=== PATIENT | male | born 1940 | race Caucasian/White ===

== ENCOUNTER 2021-09-06 09:59 | Day surgery (SDC) | payer MEDICARE, BC, SELFPAY ==
--- NOTE | 2021-09-03 10:32 | ONC.NURNOTE ---
Patient called and notified office that he is aware that he is overdue for labs. He has an appointment at [facility] tomorrow.
[2021-09-06] VITALS (9 sets, daily range): BP systolic 161–183; BP diastolic 65–86; PULSE 70–85; RESP 14–18; TEMP 36.3–36.4; O2SAT 96–98; BMI 38.4
[2021-09-06] MEDS: BUPIVACAINE 0.5% 30 ML INJECTION (12:28)
[2021-09-06] MEDS: lidocaine HCL 2 % MULTIDOSE 20 ML VIAL INJECTION (12:28)
--- NOTE | 2021-09-06 13:32 | PM.ORPRC ---
Procedure Note Date of procedure: 09/06/21 Procedure: Preop diagnosis: Left hand middle finger stenosing tenosynovitis Postop diagnosis: Left hand middle finger stenosing tenosynovitis Procedure: Left hand middle finger A1 derick release Anesthesia: Local Surgeon: Yvon Batres MD commercial lending assistant: TARIQ Booth EBL: 0 mL Complications: None Specimens: None Drains: None Preoperative antibiotics: None Indications: The patient has a history of left upper extremity middle finger painful catching and locking. Despite appropriate non operative management including flexor tendon sheath corticosteroid injections they continue to have symptoms. Operative intervention was recommended. The risks, benefits alternatives and expected outcomes were discussed in detail. These included but were not limited to: Infection, bleeding, injury to blood vessel or nerve, venous thromboembolism. All questions were answered to their satisfaction. The patient was placed supine on the operating room table. Local anesthesia was established with 0.5% Marcaine without epinephrine and 2% lidocaine without epinephrine. The hand was prepped and draped in usual sterile fashion. The limb was elevated the forearm pneumatic tourniquet was inflated to 250 mm of mercury. A transverse incision was made centered over the base of the middle finger distal palmar crease. Subcutaneous dissection was taken through the palmar fascia to the flexor tendons with the tenotomy scissors. The A1 derick was released with the 15 blade and a tenotomy scissors. Active flexion and extension of the finger shows no catching or locking, no bowstringing of the flexor tendons. The wound was closed with interrupted nylon sutures. A dry dressing was applied the tourniquet was released. Sponge and needle counts were correct x 2. The patient tolerated the procedure well, there were no apparent complications. They were sent to same day surgery in satisfactory condition. Plan: Use of the hand as tolerates. Discontinue the intraoperative dressing on postoperative day 3 and may get the wound wet as tolerates. Follow up in the office in 2 weeks for a wound check and suture removal.
== END 2021-09-06 13:00 | disposition home or self-care (01) ==
LOC: OR 10:01
PROVIDERS: PCP Family Medicine; Visit Provider Orthopaedic Surgery
PROC: (CPT 26055; principal; 2021-09-06 11:00)
DX: M65.332 Trigger finger, left middle finger (principal); M65.842 Other synovitis and tenosynovitis, left hand
CPT/HCPCS: 26055; J3490

== ENCOUNTER 2021-09-12 16:44 | Emergency (ER) | payer MEDICARE, BC, SELFPAY ==
[2021-09-12 17:05] VITALS: BP 93/62; PULSE 77; RESP 22; TEMP 37; O2SAT 96; BMI 37.3
--- NOTE | 2021-09-12 17:09 | ED.GENADULT ---
HPI - General Adult General Time Seen by Provider: 17:09 Date Seen: 09/12/21 Chief complaint: Abdominal Pain Stated complaint: Lower abdominal pain Time Seen by Provider: 09/12/21 17:03 Source: patient and family History of Present Illness HPI narrative: Jeremiah is a 80 year old male past medical history of stage 1 CLL/SLL with intra-abdominal lymphadenopathies currently doing well on oral Ibrutinib who presents to the ED with abdominal pain. Patient states that he developed lower abdominal pain this afternoon, he recently saw urology the [facility] a week and half ago, they did a cystoscopy where he had no lesions, this was because he was having microscopic hematuria, a discussion about possible TURP in the October. He did have a laser TURP 10 years ago for BPH. Patient says that when he urinates, its hard to go, then he has decent stream until it stops, he has to stand there for awhile because ends up urinating once again, this is his usual routine and he feels that he fully empties his bladder. No clots or blood in the urine, patient says that he was having a lot of increased frequency of urination this morning which is unusual, he was thinking he had an infection. He denies any nausea vomiting, back pain, this afternoon he tried to urinate and it was just dribbling. 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 Pain is lower almost suprapubic. He states he had a normal bowel movement this morning, he denies any blood in stool, no diarrhea or constipation. Denies any upper respiratory complaints. Patient has no other concerns at this time. Related Data Home Medications Medication Instructions Recorded Confirmed atorvastatin 40 mg tablet 40 mg PO .Bedtime 08/27/21 09/12/21 diphenhydramine 25 1 tab PO .Bedtime 08/27/21 09/06/21 mg-acetaminophen 500 mg tablet fexofenadine 180 mg tablet 180 mg PO DAILY 08/27/21 09/06/21 furosemide 20 mg tablet 20 mg PO DAILY 08/27/21 09/06/21 ibrutinib 140 mg capsule 280 mg PO DAILY 08/27/21 09/12/21 omeprazole 20 mg capsule,delayed 20 mg PO QDAY PRN 08/27/21 09/12/21 release potassium chloride 10 mEq 10 meq PO DAILY 08/27/21 09/06/21 capsule,extended release Previous Rx's Medication Instructions Recorded ciprofloxacin HCl 500 mg tablet 500 mg PO BID 7 days #14 tabs 09/12/21 Allergies Allergy/AdvReac Type Severity Reaction Status Date / Time penicillin V Allergy Severe Tongue Verified 09/06/21 10:12 swelling aspirin Allergy Intermediate Excessive Verified 09/06/21 10:12 bleeding oxycodone AdvReac Mild Nausea/vomi Verified 09/06/21 10:12 ting Review of Systems Status of ROS: Reports: 10 or more systems reviewed and unremarkable except as noted in History and below [facility] Medical History (Updated 09/12/21 @ 18:57 by Neil Vivas MD) Arthritis Barretts esophagus Chronic lymphocytic leukemia (CLL), B-cell GERD (gastroesophageal reflux disease) High cholesterol Iron deficiency anemia YAJAIRA (obstructive sleep apnea) Surgical History (Updated 08/27/21 @ 09:03 by Latonia Crow RN) H/O abdominal surgery H/O hernia repair H/O total shoulder replacement History of ear surgery History of total left knee replacement S/P trigger finger release Social History Smoking Status: Former smoker How often do you have a drink containing alcohol: never AUDIT-C Alcohol total score: 0 Non-prescribed substance use: denies use Exam Const: Vital Signs, click to edit/add: Vital Signs - 24 hr 09/12/21 17:05 Temperature 98.6 F Pulse Rate [Left P ulse Oximeter] 77 Respiratory Rate 22 Blood Pressure [Le ft Upper Arm] 93/62 Pulse Oximetry 96 Oxygen Delivery Me thod Room Air Common normals: no apparent distress and oriented x3 General appearance: cooperative HENMT: Common normals: normocephalic Head and scalp: normocephalic Eye: Common normals: PERRL and EOMs intact bilaterally Pupil: PERRL Neck & C-Spine: Common normals: full ROM and no lymphadenopathy Resp: Common normals: normal respiratory effort and clear to auscultation bilaterally Auscultation: clear to auscultation bilaterally GI: Common normals: Normal to inspection, nondistended, normoactive bowel sounds present and soft to palpation Palpation: soft Other: Tender to palpation in the suprapubic region : Common normals: no CVA tenderness Bladder/kidney exam: no CVA tenderness Back & Pelvis: Common normals: no CVA tenderness and thoracic and lumbar spine normal to inspection Extremity: Other: Chronic +2 lower extremity pitting edema Neuro: Common normals: oriented x3 Course Course Hospital Course: 5:15 PM: AIDET performed. Vitals normal. work up will include bladder scan, with urinalysis and urine culture. Reevaluation(s) Reevaluation #1: Patient updated on his urinalysis results, 3+ blood, 25-50 urine wbc's few bacteria. Patient drained over 650 mL of urine, he was able to urinate after. Did discuss about leaving Brody catheter in, decision was to have him try without, he will take Flomax which he has at home, will start him on ciprofloxacin 500 mg b.i.d. over the next 7 days, he needs reach out to urology to schedule follow-up appointment. Time: 18:57 Vital Signs Vital signs: Initial Vital Signs Temperature 98.6 F 09/12/21 17:05 Temperature Source Temporal Artery Scan 09/12/21 17:05 Pulse Rate 77 09/12/21 17:05 Pulse Rhythm 09/12/21 17:05 Respiratory Rate 22 09/12/21 17:05 Blood Pressure 93/62 09/12/21 17:05 Blood Pressure Mean 72 09/12/21 17:05 Blood Pressure Position Sitting 09/12/21 17:05 Pulse Oximetry 96 09/12/21 17:05 Oxygen Delivery Method 09/12/21 17:05 Vital Signs Temperature 98.6 F 09/12/21 17:05 Pulse Rate 77 09/12/21 17:05 Respiratory Rate 22 09/12/21 17:05 Blood Pressure 93/62 09/12/21 17:05 Pulse Oximetry 96 09/12/21 17:05 Oxygen Delivery Method 09/12/21 17:05 Temperature 98.6 F 09/12/21 17:05 Pulse Rate 77 09/12/21 17:05 Respiratory Rate 22 09/12/21 17:05 Blood Pressure 93/62 09/12/21 17:05 Pulse Oximetry 96 09/12/21 17:05 Oxygen Delivery Method 09/12/21 17:05 Medical Decision Making Lab Data Labs: Lab Results 09/12/21 Range/Units 17:55 Urine Color Yellow (Yellow) Urine Appearance Clear (Clear) Urine pH 6.5 (5.0-8.5) Ur Specific [place] 1.015 (1.000-1.030) Urine Protein Negative (Negative) Urine Glucose (UA) Negative (Negative) Urine Ketones Negative (Negative) Urine Blood 3+ A (Negative) Urine Nitrite Negative (Negative) Urine Bilirubin Negative (Negative) Urine Urobilinogen 0.2 (0.2-1.0) Ur Leukocyte Esterase Negative (Negative) Urine RBC 0-2 (0-2) Urine WBC 25-50 A (0-5) Ur Squamous Epith Cells None (None-Few) Urine Bacteria Few A (None) Discharge Plan Discharge Clinical Impression: Acute urinary retention Patient Disposition: Home, Self-Care Instructions: Urinary Retention in Men (ED) Additional Instructions: To continue with your Flomax 0.4 mg daily, to start ciprofloxacin 500 mg twice daily for 7 days. To reach out to your urologist at [facility], to discuss with him bone moving up with his procedure. Any worsening urinary retention to return to the emergency department or follow-up with your primary care provider for Brody placement. Activity Level: Activity as Tolerated Prescriptions: New ciprofloxacin HCl 500 mg tablet 500 mg PO BID 7 Days Qty: 14 0RF No Action diphenhydramine-acetaminophen 25-500 mg tablet 1 tab PO .Bedtime furosemide 20 mg tablet 20 mg PO DAILY fexofenadine 180 mg tablet 180 mg PO DAILY potassium chloride 10 mEq capsule, extended release 10 meq PO DAILY atorvastatin 40 mg tablet 40 mg PO .Bedtime omeprazole 20 mg capsule,delayed release(DR/EC) 20 mg PO QDAY PRN ibrutinib 140 mg capsule 280 mg PO DAILY Rx Instructions: take 2 capsules daily. Follow Up/Referrals: Jeremiah Duran MD [Primary Care Provider] - Stand Alone Forms: [employer] Info Instructions
[2021-09-12 18:00] VITALS: BP 127/88; PULSE 76; RESP 16; O2SAT 95
[2021-09-12 18:04] LABS: Appearance Urine Clear (Clear); Bilirubin Urine Negative (Negative); Blood Urine 3+ (Negative); Color Urine Yellow (Yellow); Glucose Urine Negative (Negative); Ketones Urine Negative (Negative); Leukocyte Esterase Urine Negative (Negative); Nitrite Urine Negative (Negative); Protein Urine Negative (Negative); Specific Gravity Urine 1.015 (1.000-1.030); Urobilinogen Urine 0.2 (0.2-1.0); pH Urine 6.5 (5.0-8.5)
[2021-09-12 18:33] LABS: Bacteria Urine Few; RBC Urine 0-2 (0-2); WBC Urine 25-50 (0-5)
--- NOTE | 2021-09-12 18:38 | ED.NURSE ---
straight cath attempt with 18f, pt states at urology appointment they had to wedge stretch the tip to get the catheter in, reattempt with 12f catheter with success, 1000cc pale yellow urine output, pt states relief of lower abdomen pressure/pain.
== END 2021-09-12 19:21 | disposition home or self-care (01) ==
PROVIDERS: Emergency Provider Student in an Organized Health Care Education/Training Program; PCP Family Medicine
DX: R33.9 Retention of urine, unspecified (principal)
CPT/HCPCS: 51702; 81003; 81015; 87086; 99283; 99284

== ENCOUNTER 2021-09-13 09:44 | Emergency (ER) | payer MEDICARE, BC, SELFPAY ==
[2021-09-13 10:37] VITALS: BP 164/84; PULSE 92; RESP 18; TEMP 36.8; O2SAT 96; BMI 37.3
--- NOTE | 2021-09-13 10:39 | ED.NURSE ---
18F attempted without success. tried again with 12F with success. attached to drainage bag. approx 300cc of urine
--- NOTE | 2021-09-13 10:52 | ED_ITS ---
HPI - General Adult General Time Seen by Provider: 10:52 Date Seen: 09/13/21 Stated complaint: Bladder pain Time Seen by Provider: 09/13/21 10:49 Source: patient, RN notes reviewed and old records reviewed (Review Dr. Roberson note from yesterday) Mode of arrival: ambulatory Limitations: no limitations History of Present Illness HPI narrative: Patient is a 80-year-old male coming in with urinary retention. He was seen last night, had in and out catheter done with 650 mL. He did go home. He was started on Cipro for hematuria and urinalysis. I do not see that a urine culture was ordered. He had Flomax at home. He does see Dr. Reynoso in Urology and had a green light laser done about 10 years ago. The plan is to have revision of that and they had that planned in October. Patient is already called his urologist and is awaiting a call back. Overnight he could not urinate at all. He was up every 15 minutes into the bathroom per his . On arrival here nursing staff did place a Brody catheter and he had resolution of his symptoms. He initially had over 300 mL but he now tells me he had to drain the bag as it was completely full. He has a leg bag on already. He understands that this will be left in place so that he may urinate. I will attempt to order a urine culture on the urine today but he has had a dose or 2 of Cipro. Since the urine drainage has been alleviated, he has no discomfort. He has had no fevers or chills overnight. MD complaint: Urinary retention Onset (ago): hour(s) Related Data Home Medications Medication Instructions Recorded Confirmed atorvastatin 40 mg tablet 40 mg PO .Bedtime 08/27/21 09/12/21 diphenhydramine 25 1 tab PO .Bedtime 08/27/21 09/06/21 mg-acetaminophen 500 mg tablet fexofenadine 180 mg tablet 180 mg PO DAILY 08/27/21 09/06/21 furosemide 20 mg tablet 20 mg PO DAILY 08/27/21 09/06/21 ibrutinib 140 mg capsule 280 mg PO DAILY 08/27/21 09/12/21 omeprazole 20 mg capsule,delayed 20 mg PO QDAY PRN 08/27/21 09/12/21 release potassium chloride 10 mEq 10 meq PO DAILY 08/27/21 09/06/21 capsule,extended release Previous Rx's Medication Instructions Recorded ciprofloxacin HCl 500 mg tablet 500 mg PO BID 7 days #14 tabs 09/12/21 Allergies Allergy/AdvReac Type Severity Reaction Status Date / Time penicillin V Allergy Severe Tongue Verified 09/06/21 10:12 swelling aspirin Allergy Intermediate Excessive Verified 09/06/21 10:12 bleeding oxycodone AdvReac Mild Nausea/vomi Verified 09/06/21 10:12 ting Review of Systems Status of ROS: Reports: 6 or more systems reviewed and unremarkable except as noted in History and below [facility] Medical History (Updated 09/13/21 @ 11:02 by Cathi Nicholas MD) Arthritis Barretts esophagus Chronic lymphocytic leukemia (CLL), B-cell GERD (gastroesophageal reflux disease) High cholesterol Iron deficiency anemia YAJAIRA (obstructive sleep apnea) Surgical History (Updated 08/27/21 @ 09:03 by Latonia Crow RN) H/O abdominal surgery H/O hernia repair H/O total shoulder replacement History of ear surgery History of total left knee replacement S/P trigger finger release Social History Smoking Status: Former smoker How often do you have a drink containing alcohol: never AUDIT-C Alcohol total score: 0 Non-prescribed substance use: denies use Exam Const: Vital Signs, click to edit/add: Vital Signs - 24 hr 09/13/21 10:37 Temperature 98.3 F Pulse Rate [Right Pulse Oximeter] 92 Respiratory Rate 18 Blood Pressure [Ri ght Upper Arm] 164/84 H Pulse Oximetry 96 Oxygen Delivery Me thod Room Air Documenting provider has reviewed patient's vital signs: yes Common dolores ls: no apparent distress, oriented x3, no limitations, healthy appearing, alert and well nourished Nutritional appearance: overweight HENMT: Common normals: normocephalic, head/scalp atraumatic and hearing grossly normal bilaterally Head and scalp: normocephalic and atraumatic Eye: Common normals: PERRL, EOMs intact bilaterally, conjunctivae normal and no scleral icterus Conjunctiva: conjunctiva(e) normal Pupil: PERRL GI: Common normals: Normal to inspection, nondistended, normoactive bowel sounds present (But obese), soft to palpation, non-tender, no hepatosplenomegaly and no masses Palpation: soft and no hepatosplenomegaly Other: Noted abdominal exam done after Brody catheter already placed. Neuro: Common normals: oriented x3 Sensorium/orientation: alert Course Vital Signs Vital signs: Initial Vital Signs Temperature 98.3 F 09/13/21 10:37 Temperature Source Temporal Artery Scan 09/13/21 10:37 Pulse Rate 92 09/13/21 10:37 Respiratory Rate 18 09/13/21 10:37 Blood Pressure 164/84 H 09/13/21 10:37 Blood Pressure Mean 110 09/13/21 10:37 Blood Pressure Position Sitting 09/13/21 10:37 Pulse Oximetry 96 09/13/21 10:37 Oxygen Delivery Method 09/13/21 10:37 Vital Signs Temperature 98.3 F 09/13/21 10:37 Pulse Rate 92 09/13/21 10:37 Respiratory Rate 18 09/13/21 10:37 Blood Pressure 164/84 H 09/13/21 10:37 Pulse Oximetry 96 09/13/21 10:37 Oxygen Delivery Method 09/13/21 10:37 Temperature 98.3 F 09/13/21 10:37 Pulse Rate 92 09/13/21 10:37 Respiratory Rate 18 09/13/21 10:37 Blood Pressure 164/84 H 09/13/21 10:37 Pulse Oximetry 96 09/13/21 10:37 Oxygen Delivery Method 09/13/21 10:37 Critical Care Time Critical Care Time Critical Care Time: No Discharge Plan Discharge Clinical Impression: Acute urinary retention Condition: Stable Instructions: Urinary Retention in Men (ED), Brody Catheter Placement and Care (ED) Additional Instructions: Leave Brody catheter in place, review handouts on care. Need to work with your urologist for further evaluation and management of this. Should you develop severe abdominal pain, fever, nausea vomiting with abdominal pain or fever or if the Brody catheter is obstructed and not draining, please seek re-evaluation in the interim. Activity Level: Activity as Tolerated Prescriptions: No Action diphenhydramine-acetaminophen 25-500 mg tablet 1 tab PO .Bedtime furosemide 20 mg tablet 20 mg PO DAILY fexofenadine 180 mg tablet 180 mg PO DAILY potassium chloride 10 mEq capsule, extended release 10 meq PO DAILY atorvastatin 40 mg tablet 40 mg PO .Bedtime omeprazole 20 mg capsule,delayed release(DR/EC) 20 mg PO QDAY PRN ibrutinib 140 mg capsule 280 mg PO DAILY Rx Instructions: take 2 capsules daily. ciprofloxacin HCl 500 mg tablet 500 mg PO BID 7 Days Qty: 14 0RF Follow Up/Referrals: Jeremiah Duran MD [Primary Care Provider] - Stand Alone Forms: [employer] Info Instructions
== END 2021-09-13 11:26 | disposition home or self-care (01) ==
LOC: ED 11:09
PROVIDERS: Emergency Provider Family Medicine; PCP Family Medicine
DX: R33.9 Retention of urine, unspecified (principal)
CPT/HCPCS: 51702; 87086; 99283

== ENCOUNTER 2021-09-24 09:56 | Emergency (ER) | payer MEDICARE, BC, SELFPAY ==
[2021-09-24 10:37] VITALS: BP 149/82; PULSE 74; RESP 18; TEMP 36.5; O2SAT 96; BMI 37.3
--- NOTE | 2021-09-24 11:46 | ED.GENADULT ---
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 He has had self catheterizations, but more recently has had a little bit a blood-tinged urine, his urologist felt that he should have a catheter in place until his procedure in the next couple of weeks. Any presents for that. He is not having fever, chills, chest pain, neurologic complaints, no rigors. He simply wishes a catheter. He like to have a leg bag as well as a large night bag for the catheter to drain Related Data Home Medications Medication Instructions Recorded Confirmed atorvastatin 40 mg tablet 40 mg PO .Bedtime 08/27/21 09/19/21 diphenhydramine 25 1 tab PO .Bedtime 08/27/21 09/19/21 mg-acetaminophen 500 mg tablet fexofenadine 180 mg tablet 180 mg PO DAILY 08/27/21 09/19/21 furosemide 20 mg tablet 20 mg PO DAILY 08/27/21 09/19/21 ibrutinib 140 mg capsule 280 mg PO DAILY chronic lymphesmic 08/27/21 09/19/21 leukemia omeprazole 20 mg capsule,delayed 20 mg PO QDAY PRN 08/27/21 09/19/21 release potassium chloride 10 mEq 10 meq PO DAILY 08/27/21 09/19/21 capsule,extended release tamsulosin 0.4 mg capsule ea PO 09/19/21 09/19/21 Previous Rx's Medication Instructions Recorded ciprofloxacin HCl 500 mg tablet 500 mg PO BID 7 days #14 tabs 09/12/21 Allergies Allergy/AdvReac Type Severity Reaction Status Date / Time penicillin V Allergy Severe Tongue Verified 09/19/21 16:14 swelling aspirin Allergy Intermediate Excessive Verified 09/19/21 16:14 bleeding oxycodone AdvReac Mild Nausea/vomi Verified 09/19/21 16:14 ting Review of Systems Status of ROS: Reports: 6 or more systems reviewed and unremarkable except as noted in History and below [facility] Medical History Arthritis Barretts esophagus Chronic lymphocytic leukemia (CLL), B-cell GERD (gastroesophageal reflux disease) High cholesterol Iron deficiency anemia YAJAIRA (obstructive sleep apnea) Surgical History H/O abdominal surgery H/O hernia repair H/O total shoulder replacement History of ear surgery History of total left knee replacement S/P trigger finger release (09/06/21) Social History Smoking Status: Former smoker (quit 02/03/1969) What tobacco products do you use: cigarettes Smoking quit date/years: >15 years ago Do you use any of these nicotine containing products: None Second hand tobacco smoke exposure: No How often do you have a drink containing alcohol: never AUDIT-C Alcohol total score: 0 Non-prescribed substance use: denies use Exam Narrative: Exam Narrative: Vital signs unremarkable The patient is alert orient x3 Denies abdominal pain or back pain Const: Vital Signs, click to edit/add: Vital Signs - 24 hr 09/24/21 10:37 Temperature 97.7 F Pulse Rate [Right Pulse Oximeter] 74 Respiratory Rate 18 Blood Pressure [Ri ght Upper Arm] 149/82 H Pulse Oximetry 96 Oxygen Delivery Me thod Room Air Course Vital Signs Vital signs: Initial Vital Signs Temperature 97.7 F 09/24/21 10:37 Temperature Source Temporal Artery Scan 09/24/21 10:37 Pulse Rate 74 09/24/21 10:37 Pulse Rhythm 09/24/21 10:37 Respiratory Rate 18 09/24/21 10:37 Blood Pressure 149/82 H 09/24/21 10:37 Blood Pressure Mean 104 09/24/21 10:37 Blood Pressure Position Sitting 09/24/21 10:37 Pulse Oximetry 96 09/24/21 10:37 Oxygen Delivery Method 09/24/21 10:37 Vital Signs Temperature 97.7 F 09/24/21 10:37 Pulse Rate 74 09/24/21 10:37 Respiratory Rate 18 09/24/21 10:37 Blood Pressure 149/82 H 09/24/21 10:37 Pulse Oximetry 96 09/24/21 10:37 Oxygen Delivery Method 09/24/21 10:37 Temperature 97.7 F 09/24/21 10:37 Pulse Rate 74 09/24/21 10:37 Respiratory Rate 18 09/24/21 10:37 Blood Pressure 149/82 H 09/24/21 10:37 Pulse Oximetry 96 09/24/21 10:37 Oxygen Delivery Method 09/24/21 10:37 Medical Decision Making MDM Narrative Medical decision making narrative: Patient has had prostatism, he has had a history of laser surgery for his prostate in the past and needs repeat. Per Urology needs a catheter will place this leave it to drainage Rashad leg bag and to a large overnight bag. He can return to the ED as needed prior to his surgery, otherwise problems or concerns update his urologist. Discharge Plan Discharge Clinical Impression: Acute urinary retention Patient Disposition: Home, Self-Care Condition: Improved Additional Instructions: Brody catheter placed, update Urology as needed, return as needed. Activity Level: Light activity Discharge Diet: Regular Prescriptions: No Action tamsulosin 0.4 mg capsule PO Label Comments: TAKE 1 CAPSULE BY MOUTH EVERY DAY DIRECTED diphenhydramine-acetaminophen 25-500 mg tablet 1 tab PO .Bedtime furosemide 20 mg tablet 20 mg PO DAILY fexofenadine 180 mg tablet 180 mg PO DAILY potassium chloride 10 mEq capsule, extended release 10 meq PO DAILY atorvastatin 40 mg tablet 40 mg PO .Bedtime omeprazole 20 mg capsule,delayed release(DR/EC) 20 mg PO QDAY PRN ibrutinib 140 mg capsule 280 mg PO DAILY Rx Instructions: take 2 capsules daily. ciprofloxacin HCl 500 mg tablet 500 mg PO BID 7 Days Qty: 14 0RF Follow Up/Referrals: Jeremiah Duran MD [Primary Care Provider] - Stand Alone Forms: [employer] Info Instructions
== END 2021-09-24 12:05 | disposition home or self-care (01) ==
PROVIDERS: Emergency Provider Family Medicine; PCP Family Medicine
DX: R33.9 Retention of urine, unspecified (principal)
CPT/HCPCS: 51702; 99283

== ENCOUNTER 2021-09-26 10:32 | Emergency (ER) | payer MEDICARE, BC, SELFPAY ==
[2021-09-26 10:45] VITALS: BP 148/87; PULSE 73; RESP 18; TEMP 36.6; O2SAT 99
--- NOTE | 2021-09-26 10:45 | ED_ITS ---
HPI - General Adult General Time Seen by Provider: 10:44 Date Seen: 09/26/21 Chief complaint: Urogenital Problems, Male Stated complaint: Plugged catheter Time Seen by Provider: 09/26/21 10:34 Source: patient Mode of arrival: ambulatory Limitations: no limitations History of Present Illness HPI narrative: Mr. Hawley is a pleasant 80-year-old male scheduled for BPH surgery within the next few weeks, noted this catheter was not draining well, this is placed recently in the ED here. Prior to that he was doing self caths, he has had no fever chills cough, he does report he is in a great amount of pain but he has noticed less urine output and he presents to ED. Upon presentation the urine was slightly blood tinged but there were no clot noted, and he had really good all the sudden urine flow through his catheter. He wish to simply watch it is rather than change the catheter at this point I think that is very reasonable. He abdominal exam shows no pain in his abdomen or suprapubic region Related Data Home Medications Medication Instructions Recorded Confirmed atorvastatin 40 mg tablet 40 mg PO .Bedtime 08/27/21 09/19/21 diphenhydramine 25 1 tab PO .Bedtime 08/27/21 09/19/21 mg-acetaminophen 500 mg tablet fexofenadine 180 mg tablet 180 mg PO DAILY 08/27/21 09/19/21 furosemide 20 mg tablet 20 mg PO DAILY 08/27/21 09/19/21 ibrutinib 140 mg capsule 280 mg PO DAILY chronic lymphesmic 08/27/21 09/19/21 leukemia omeprazole 20 mg capsule,delayed 20 mg PO QDAY PRN 08/27/21 09/19/21 release potassium chloride 10 mEq 10 meq PO DAILY 08/27/21 09/19/21 capsule,extended release tamsulosin 0.4 mg capsule ea PO 09/19/21 09/19/21 Previous Rx's Medication Instructions Recorded ciprofloxacin HCl 500 mg tablet 500 mg PO BID 7 days #14 tabs 09/12/21 Allergies Allergy/AdvReac Type Severity Reaction Status Date / Time penicillin V Allergy Severe Tongue Verified 09/19/21 16:14 swelling aspirin Allergy Intermediate Excessive Verified 09/19/21 16:14 bleeding oxycodone AdvReac Mild Nausea/vomi Verified 09/19/21 16:14 ting Review of Systems Status of ROS: Reports: 6 or more systems reviewed and unremarkable except as noted in History and below [facility] Medical History Arthritis Barretts esophagus Chronic lymphocytic leukemia (CLL), B-cell GERD (gastroesophageal reflux disease) High cholesterol Iron deficiency anemia YAJAIRA (obstructive sleep apnea) Surgical History H/O abdominal surgery H/O hernia repair H/O total shoulder replacement History of ear surgery History of total left knee replacement S/P trigger finger release (09/06/21) Social History Smoking Status: Former smoker What tobacco products do you use: cigarettes Smoking quit date/years: >15 years ago Do you use any of these nicotine containing products: None Second hand tobacco smoke exposure: No How often do you have a drink containing alcohol: never AUDIT-C Alcohol total score: 0 Non-prescribed substance use: denies use Exam Narrative: Exam Narrative: Objective: No abdominal tenderness, no suprapubic tenderness, catheter is now draining well and filling the bag Medical Decision Making MDM Narrative Medical decision making narrative: I suspect the patient had a transient clot in the Brody inch in his bladder, now the urine is draining well, I do not see a lot of clotting. Will observe in the ED if he continues to do well and continues to have urine output without discomfort, will undergo home and then return as needed, follow up with Urology as needed. Would recommend return to the ED if catheter plugging or other concerns such as abdominal discomfort with limited urine output Discharge Plan Discharge Clinical Impression: Brody catheter problem Patient Disposition: Home, Self-Care Condition: Improved Additional Instructions: Continue observe the catheter, return as needed, any abdominal pain, limited urine output return. Activity Level: No Restrictions Discharge Diet: Regular Prescriptions: No Action tamsulosin 0.4 mg capsule PO Label Comments: TAKE 1 CAPSULE BY MOUTH EVERY DAY DIRECTED diphenhydramine-acetaminophen 25-500 mg tablet 1 tab PO .Bedtime furosemide 20 mg tablet 20 mg PO DAILY fexofenadine 180 mg tablet 180 mg PO DAILY potassium chloride 10 mEq capsule, extended release 10 meq PO DAILY atorvastatin 40 mg tablet 40 mg PO .Bedtime omeprazole 20 mg capsule,delayed release(DR/EC) 20 mg PO QDAY PRN ibrutinib 140 mg capsule 280 mg PO DAILY Rx Instructions: take 2 capsules daily. ciprofloxacin HCl 500 mg tablet 500 mg PO BID 7 Days Qty: 14 0RF Follow Up/Referrals: Jeremiah Duran MD [Primary Care Provider] - Stand Alone Forms: [employer] Info Instructions
== END 2021-09-26 11:18 | disposition home or self-care (01) ==
LOC: ED 11:21
PROVIDERS: Emergency Provider Family Medicine; PCP Family Medicine
DX: T83.091A Other mechanical complication of indwelling urethral catheter, initial encounter (principal)
CPT/HCPCS: 99282; 99283

== ENCOUNTER 2021-11-07 02:03 | Emergency (ER) | payer MEDICARE, BC, SELFPAY ==
[2021-11-07 02:11] VITALS: BP 143/76; PULSE 104; RESP 16; TEMP 36.6; O2SAT 96
--- OUTSIDE RECORDS SUMMARY | 2021-11-07 02:41 | XMS_ITS | Clinical Summary ---
:1940 Author Organization [facility] Address [address] [place] [id number] Care Team Providers Name Role Phone Rene Chapa Primary Care Provider Unavailable Allergies Active Allergy Reactions Severity Noted Date Comments Aspirin High 11/06/[address] omach needed a blood transfusion fro m taking an 81 mg ASA Penicillins High 11/06/2011 Tongue swelling , throat swelling . Oxycodone-Acetaminophen Other (See Comments) Low 2 Stomach upset Medications Medication Sig Dispensed Refills Start Date End Date Status Diphenhydramine-APAP, Take by mouth 0 Active sleep, (TYLENOL PM daily. EXTRA STRENGTH PO) melatonin 3 MG tablet Take by mouth 0 Active nightly as needed. fexofenadine (MARKIE) Take 180 mg by 0 Active 180 MG tablet mouth every morning simvastatin (ZOCOR) 20 Take 20 mg by 0 Active MG tablet mouth every morning Multiple Vitamin Take by mouth 0 Active (MULTI-VITAMIN PO) every morning. fish oil-omega-3 fatty Take 2 g by 0 Active acids 1000 MG capsule mouth daily. omeprazole (PRILOSEC) Take 20 mg by [address] capsule mouth daily ofloxacin (FLOXIN) 0.3 4-5 drops to the right ear t wice a day until return to clinic 1 Bottle 4 01/06/2012 Active % otic (Start in one week) solutionIndications: Otorrhea atorvastatin (LIPITOR) Take 40 mg by 0 Active 40 MG tablet mouth daily furosemide (LASIX) 20 Take 20 mg by 0 Active MG tablet mouth daily ibrutinib (IMBRUVICA) Take 420 mg by 0 Active 420 MG tablet mouth daily potassium chloride ER Take 10 mEq by 0 Active (MICRO-K) 10 MEQ CR mouth daily capsule sulfamethoxazole-trime Take 1 tablet 14 tablet 0 11/01/2021 Active thoprim (BACTRIM DS) by mouth 2 800-160 MG times daily for tabletIndications: 7 days Prostate cancer (H) tolterodine ER (DETROL Take 1 capsule 7 capsule 0 11/01/2021 Active LA) 4 MG 24 hr (4 mg) by mouth capsuleIndications: daily BPH with urinary obstruction ciprofloxacin (CIPRO) Take 1 tablet 14 tablet 0 11/01/2021 Active 500 MG (500 mg) by tabletIndications: BPH mouth 2 times with urinary daily for 14 obstruction doses traMADol (ULTRAM) 50 Take 1 tablet 10 tablet 0 11/01/202110/12 MG tabletIndications: (50 mg) by Prostate cancer (H) mouth every 6 hours as needed for severe pain (7-10) Active Problems Problem Noted Date Otorrhea 01/09/2012 Cholesteatoma 01/09/2012 Encounters Date Type Specialty Care Team Description 11/01/2021 Anesthesia Event Surgery Erwin Hagen MD Valiant, Katherine M PRODUCT INTRODUCTION 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 Not asked How many drinks containing alcohol do you have on a Not aske d typical day when you are drinking? How often do you have six or more drinks on one Not asked occasion? Comment: Every two weeks 11/06/2011 Sex Assigned at Date Recorded Not on file COVID-19 Exposure Response Date Recorded In the last 10 days, have you been in contact with No / Unsu re 11/01/2021 6:47 AM CDT someone who was confirmed or suspected to have Coronavirus/COVID-19? Last Filed Vital Signs Vital Sign Reading Time Taken Comments Blood Pressure 131/81 11/01/2021 12:15 PM CDT Pulse 71 11/01/2021 11:00 AM CDT Temperature 36.7 ??C (98 ??F) 11/01/2021 12:15 PM CDT Respiratory Rate 16 11/01/2021 12:15 PM CDT Oxygen Saturation 97% 11/01/2021 12:15 PM CDT Inhaled Oxygen Concentration - - Weight 118.4 kg (261 lb) 11/01/2021 7:54 AM CDT Height 175.3 cm (5' 9) 11/01/2021 7:54 AM CDT Body Mass Index 38.54 11/01/2021 7:54 AM CDT Plan of Treatment Health Maintenance Due Date Last Done Comments ADVANCE CARE PLANNING 1940 ANNUAL REVIEW OF HM ORDERS 1940 LIPID 1976 FALL RISK ASSESSMENT 2006 MEDICARE ANNUAL WELLNESS 2006 VISIT DTAP/TDAP/TD IMMUNIZATION 01/31/2021 01/31/2011, 09/29/2001 (2 - Td or Tdap) PHQ-2 (once per calendar 02/10/2021 year) Pneumococcal Vaccine: 65+ Completed 01/14/2014, 01/29/2013 , Years 10/29/2005 ZOSTER IMMUNIZATION Completed 12/01/2018, 09/30/2018, 08/19/2007 COVID-19 Vaccine Completed 10/24/2021, 10/24/2021, 05/29/2021, Additional history exists INFLUENZA VACCINE Completed 10/24/2021, 11/07/2020, 10/12/2019, Additional history exists HEPATITIS B IMMUNIZATION Aged Out No long er eligible based on patient 's age to complete this topic IPV IMMUNIZATION Aged Out No longer eligi ble based on patient 's age to complete this topic MENINGITIS IMMUNIZATION Aged Out No longe r eligible based on patient 's age to complete this topic Procedures Procedure Name Priority Date/Time Associated Diagnosis Comme nts VAPORIZATION, 11/01/2021 9:04 AM CDT Benign prostatic PROSTATE, hyperplasia PHOTOSELECTIVE, USING 532 NANOMETER 80 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 EKG CARDIAC - HIM SCAN 10/24/2021 12:00 AM CDT from Last 3 Months Results Potassium (11/01/2021 7:50 AM CDT) P athologist Signature Potassium 3.8 3.4 - 5.3 11/01/2021 LABORATORY mmol/L 8:06 AM CDT Specimen Anatomical Collection Method / Collection Time Recei alissa Time (Source) Location / Volume Laterality Blood STRUCTURE OF RIGHT Venipuncture / 11/01/2021 7:50 10/12 7:54 UPPER LIMB / Unknown AM CDT AM CDT Unknown Erwin Hagen MD LAB - BLOOD ORDERABLES Performing Organization Address City/State/ZIP Code [place] [address] Care [facility] [address] [facility] 1st floor, Room 20B EKG CARDIAC - HIM SCAN (10/24/2021 12:00 AM CDT) Specimen (Source) Anatomical Location Collection Method / Collectio n Time Received Time / Laterality Volume 10/24/2021 Narrative This result has an attachment that is no t available. 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
--- OUTSIDE RECORDS SUMMARY | 2021-11-07 02:41 | XMS_ITS | Encounter Summary ---
:1940 Author Organization [facility] Address [address] [place] [address]. [place] [address] Care Team Providers Name Role Phone Rene Chapa Primary Care Provider Unavailable Reason for Visit Auth/Cert - Closed Specialty Diagnoses / Procedures Referred By Contact Refer red To Contact Surgery Diagnoses cholesteatoma Uu Periop Procedures MASTOIDECTOMY [address] [place] [address] Phone: Fax: Referral ID Status Reason Start Date Expiration Date Visits Requ ested Visits Authorized [id number] Closed 1 1 Encounter Details Date Type Department Care Team Description 12/17/2011 Surgery [facility] Chilo Varghese MD Right Radical PeriOp Services [address] [facility] Mastoidectomy,Left Ear [address] 396 [place] [address] [place], [place] Facial Nerve Monitoring [phone] (Wo rk) Surgery Details Date/Time Status Location OR Service Patient Case Case Traum a Class Class Type Case? 12/17/11 11:00 Posted UU OR UU OR Otolaryngology Same Day AM 15 Surgery Panel 1 Procedure LRB Anes Op Region Wound Class Commen ts Right Radical Right General Ear II-Clean Contaminated Right Radical Mastoidectomy,Left Mastoi dectomy,Left Ear Exam under Ear Exam u nder Anesthesia Facial Anesthe jennifer Facial Nerve Monitoring Nerve Mo nitoring Surgeon Surgeon Role Service Panel Hawk Varghese MD Primary Otolaryngology 1 Emmy Middleton MD Resident - Assisting Otolaryngology 1 Margarita Perez MD Resident - Assisting 1 documented in this encounter Social History Tobacco Use Types Packs/Day Years [...] Assigned at Date Recorded Not on file documented as of this encounter Last Filed Vital Signs Vital Sign Reading Time Taken Comments Blood Pressure 149/90 12/17/2011 8:52 AM COMMERCIAL CREDIT REVIEWER Pulse - - Temperature 36.7 ??C (98 ??F) 12/17/2011 8:52 AM COMMERCIAL CREDIT REVIEWER Respiratory Rate 18 12/17/2011 8:52 AM COMMERCIAL CREDIT REVIEWER Oxygen Saturation 98% 12/17/2011 8:52 AM COMMERCIAL CREDIT REVIEWER Inhaled Oxygen Concentration - - Weight 117.5 kg (259 lb 0.7 oz) 12/17/2011 8:52 AM COMMERCIAL CREDIT REVIEWER Height 177.8 cm (5' 10) 12/17/2011 8:52 AM COMMERCIAL CREDIT REVIEWER Body Mass Index 37.17 12/17/2011 8:52 AM COMMERCIAL CREDIT REVIEWER documented in this encounter Discharge Instructions Discharge InstructionsSarah Arizmendi RN - 12/17/2011 6:40 PM CST [facility] Same-Day Surgery Adult Discharge Orders & Instructions For 24 hours after surgery 1. Get plenty of rest. A responsible adult must stay with you for at least 24 hours after you leave the hospital. 2. Do not drive or use heavy equipment. If you have weakness or tingling, don't drive or use heavy equipment until this feeling goes away. 3. Do not drink alcohol. 4. Avoid strenuous or risky activities. Ask for help when climbing stairs. 5. You may feel lightheaded. IF so, sit for a few minutes before standing. Have someone help you getup. 6. If you have nausea (feel sick to your stomach): Drink only clear liquids such as apple juice, isis noel, broth or 7-Up. Rest may also help. Be sure to drink enough fluids. Move to a regular diet asyou feel able. 7. You may have a slight fever. Call the doctor if your fever is over 100??F (37.7??C) (taken under the tongue) or lasts longer than 24 hours. 8. You may have a dry mouth, a sore throat, muscle aches or trouble sleeping. These should go away after 24 hours. 9. Do not make important or legal decisions. Call your doctor for any of the followin. Signs of infection (fever, growing tenderness at the surgery site, a large amount of drainage or bleeding, severe pain, foul-smelling drainage, redness, swelling). 2. It has been over 8 to 10 hours since surgery and you are still not able to urinate (pass water). 3. Headache for over 24 hours. 4. Numbness, tingling or weakness the day after surgery (if you had spinal anesthesia). To contact a doctor, call _Dr. VargheseEnymg__[phone] and ask for the resident electric distribution checker for ENT (answered 24 hours a day) X Emergency Department: [facility]: [phone] (TTY for hearing impaired: [phone]) Tips for taking pain medications To get the best pain relief possible , remember these points: ?? Take pain medications as directed, before pain becomes severe ?? Pain medication can upset your stomach: taking it with food may help ?? Constipation is a common side effect of pain medication. Drink plenty of Fluids ?? Eat foods high in fiber. Take a stool softener if recommended by your doctor or Pharmacist. ?? Do not drink alcohol, drive or operate machinery while taking pain medications. Ask about other ways to control pain, such as with heat, ice or relaxation. ERCIAL CREDIT REVIEWER documented in this encounter Medications at Time of Discharge Medication Sig Dispensed Refills Start Date End Date Diphenhydramine-APAP, Take by mouth 0 sleep, (TYLENOL PM EXTRA daily. STRENGTH PO) fexofenadine (MARKIE) 180 Take 180 mg by 0 MG tablet mouth every morning fish oil-omega-3 fatty Take 2 g by mouth 0 acids 1000 MG capsule daily. melatonin 3 MG tablet Take by mouth 0 nightly as needed. Multiple Vitamin Take by mouth every 0 (MULTI-VITAMIN PO) morning. omeprazole (PRILOSEC) 20 Take 20 mg by mouth [address] capsule daily simvastatin (ZOCOR) 20 MG Take 20 mg by mouth 0 tablet every morning ofloxacin (FLOXIN) 0.3 % Place 5 drops into 7 mL 5 01/07/2012 otic solutionIndications: the right ear 2 Cholesteatoma times daily for 14 days. docusate sodium 100 MG Take 100 mg by 14 tablet 1 2 01/06/2012 tabletIndications: mouth daily. Cholesteatoma HYDROcodone-acetaminophen Take 1-2 tablets by 40 tablet 0 1 02/15/2011 01/06/2012 5-325 MG per mouth every 4 hours tabletIndications: as needed for other Cholesteatoma (Moderate to Severe Pain). documented as of this encounter Progress Notes Hawk Varghese MD - 12/24/2011 8:37 PM CST ERCIAL CREDIT REVIEWER documented in this encounter H&P Notes Hawk Varghese MD - 12/16/2011 10:15 AM CST ERCIAL CREDIT REVIEWER documented in this encounter Nursing Notes Melida Jaramillo RN - 12/17/2011 6:32 PM CST Pt arrived to PACU feeling the urge to void. Pt attempted to use urinal while sitting and standing. Pt was not able to void. Pt was bladder scanned for over 600ccs of urine. Dr. Santacruz notified, and order for straight cath obtained. Pt straight cathed for 800ccs of clear, yellow urine. Pt does not need to void on 3C per Dr. Santacruz. Will continue to monitor. ERCIAL CREDIT REVIEWER documented in this encounter OR Notes OR Anesthesia - Hawk Varghese MD - 12/19/2011 9:18 AM CST ERCIAL CREDIT REVIEWER documented in this encounter Miscellaneous Notes Op Note - Hawk Varghese MD - 12/19/2011 8:27 AM CST PREOPERATIVE DIAGNOSIS: Right cholesteatoma. POSTOPERATIVE DIAGNOSIS: Right cholesteatoma. PROCEDURES PERFORMED: Include: 1. Right radical mastoidectomy. 2. Facial nerve monitoring x3 hours. 3. Left ear exam under anesthesia. SURGEON: Hawk Vraghese MD FELLOW: Emmy Middleton MD RESIDENT: Margarita Vallejo MD ANESTHESIA: General endotracheal. COMPLICATIONS: None. INDICATIONS: Mr. Jeremiah Monteiro is a 71-year-old gentleman who has undergone previous right-sided tympanomastoidectomy for cholesteatoma. Unfortunately, this did result in a fairly significant facial paresis. Most of it has recovered, but he still has some mild sequelae from that. He also has right-sided eustachian tube dysfunction. He was noted though that he had developed a new cholesteatoma on the left side that is a nonfunctioning ear in terms of hearing. CT scan confirmed this. Therefore, since it is a nonfunctioning ear, the recommendation was for a radical mastoidectomy to exteriorize the disease. There was concern also for a very dehiscent facial nerve given his previous injury and the locati on of the cholesteatoma. He expressed desire that we look in his left ear also at the time to make sure that his tube is in position. The risks and benefits have been discussed with him and consent wasobtained. DESCRIPTION OF THE PROCEDURE: He was taken to the operating room and placed supine on the operating table. After adequate anesthesia and endotracheal intubation was performed, a timeout was then performed with confirmation of the patient, the site of the surgery and the type of surgery to be done. Facial nerve electrodes were placed on the right side of the face and connected to the nerve monitor. Impedances were checked and the nerve was monitored for the entirety of the case. Epinephrine 1:100,000had been injected into the postauricular region, conchal bowl and ear canal. The patient was then prepped and draped in standard surgical fashion. A postauricular incision was made down to the temporalis using his previous incision. There was quite a bit of scarring in that area. He is noted to have aquite posterior mastoid cavity. A standard T- incision was made and the soft tissues elevated out of the mastoid cavity. He has a very large firm scar in the lateral portion of the mastoid cavity. Once t his was opened, he was noted to have some cortical growth of the mastoid, but most of it is clear. We can see directly down into the antrum. He has a completely dehiscent mastoid segment of the facial nerve and cholesteatoma within the antrum. At this point, the operating microscope was brought into position and used for the remainder of the case. Posterior ear canal skin was elevated and canal incision was made. A revision mastoidectomy wasthen performed with identification of the tegmen and the sigmoid sinus. The posterior ear canal wall was also partially taken down at this time. Some of the cholesteatoma was suctioned out of the antrum and this was all passed off the table for specimen. Attention was then turned to the ear canal. Canal incision was made circumferentially lateral to theannulus of the tympanic membrane. The tympanomeatal flap was elevated. As this was being done, he was noted to have a large crust and scar in the posteroinferior tympanic membrane which likely was where a previous tube had been placed and it appears that the cholesteatoma was emanating from this. The cholesteatoma completely filled the hypotympanum and essentially the entirety of the middle ear as this was being elevated off along with the tympanic membrane. There was noted to be some stimulation ofthe facial nerve. On closer inspection, it was likely because the chorda tympani was encased in the cholesteatoma. The chorda tympani was resected. The facial ridge was then taken down all the way to the level of the facial nerve. The facial nerve is in fact noted to be directly against the posterior ear canal wall. He has had a facial recess donepreviously. There was cholesteatoma adherent to the dehiscent portion of the descending facial nerve. This was removed in one piece. There was some stimulation of the nerve throughout, but it was intact. Once the nerve was freed, then removal of the cholesteatoma was then further performed. Cholesteatoma was taken out of the sinus tympani. It was noted to be wrapped around the stapes superstructure. It was able to be removed off the stapes superstructure. He also has dehiscence of the facial nerve in the tympanic segment, but this was likely from erosion from the cholesteatoma. The incus was removed. The tensor tympani tendon was cut and the malleus was then mobilized. The tympanic membrane and cholesteatoma was then mobilized out of the anterior middle ear space. It is noted to be going down towards and into the eustachian tube. It appeared that the matrix was able to be removed in one piece, though, out of the eustachian tube. The only portion of the middle ear that was clear was the anteriorepitympanum. At this point, the entire specimen attached to the tympanic membrane and the malleus was then passed off the table for permanent section. The ear was then copiously irrigated using cold normal saline. This did result in some facial nerve stimulation as well. The stapes superstructure is intact and still in position within the oval window. Again, the facial nerve is intact in its entirety. Meatoplasty was then created and sutured back into position. Postauricular incision was closed. Several large pieces of Gelfoam were placed on the floor of the mastoid cavity and several pieces of bacitracin coated quarter-inch Nu Gauze were then placed in the mastoid cavity and a meatal plug placed over this. Attention was then turned to the left ear. The operating microscope was used to examine the ear. Thetube was in position. The facial nerve electrodes were then removed and a Nance dressing placed over the right ear. The patient was then returned to anesthesia, awakened, extubated and taken to the PACU in stable condition. He is noted to be a House- Brackmann 2 out of 6 at the time of extubation. HAWK VARGHESE MD MT: TS Name: JEREMIAH MONTEIRO Account: [id number] : 1940 Procedure Date: 12/17/2011 Document: [id number] ERCIAL CREDIT REVIEWER Pharmacy-Admission Medication History - Valarie Wilkes RPH - 12/17/2011 5:14 PM CST Medication history information documented by surgery nurse prior to admission. ERCIAL CREDIT REVIEWER Brief Op Note - Emmy Middleton MD - 12/17/2011 4:37 PM CST ENT BRIEF OPERATIVE NOTE Pre-operative diagnosis: left cholesteatoma Post-operative diagnosis: Same Procedure: left radical tympanomastoidectomy, facial nerve monitoring Surgeon: Dr. Colette Varghese Climatology Professor(s): Emmy Middleton,Ferny Anesthesia: General endotracheal anesthesia Estimated blood loss: Less than 40 ml Total IV fluids: (See anesthesia record) Blood transfusion: No transfusion was given during surgery Total urine output: (See anesthesia record) Drains: None Specimens: left mastoid and ear contents Implants: None Findings: cholesteatoma filling middle ear space extending towards eustachian tube, filling sinus tympani, epitympanum, tympanosclerosis on facial nerve, tympanic and descending portion of facial completely dehisceint, possible neuroma noted in 2nd genu Complications: None Condition: Stable Comments: See dictated operative report for full details Emmy Middleton ERCIAL CREDIT REVIEWER documented in this encounter Plan of Treatment Not on filedocumented as of this encounter Procedures Procedure Name Priority Date/Time Associated Diagnosis Comme [facility] SURGICAL PATHOLOGY Routine 12/17/2011 1:44 Result s for this EXAM PM COMMERCIAL CREDIT REVIEWER procedure are i n the results section. MASTOIDECTOMY 12/17/2011 11:59 cholesteatoma AM COMMERCIAL CREDIT REVIEWER documented in this encounter Results Surgical pathology exam (12/17/2011 1:44 PM COMMERCIAL CREDIT REVIEWER) Component Value Ref Test Analysis Performed At [facility] Method Time Signature Copath Report Patient Name: JEREMIAH MONTEIRO MR#: [id number] Specimen #: [id number] Collected: 12/17/2011 Received: 12/17/2011 Reported: 12/24/2011 17:33 Ordering Phy(s): HAWK VARGHESE SPECIMEN(S): Right mastoid and ear contents FINAL DIAGNOSIS: Ear, right mastoid and ear contents, excision ? - Fragments of squamous mucosa and keratotic debris, consistent with cholesteatoma I have personally reviewed all specimens and or slides, incl uding the listed special stains, and used them with my medical judgeme nt to determine the final diagnosis. Electronically signed out by: José Miguel Jones M.D., [facility] CLINICAL HISTORY: The patient is a 71-year-old man with a history of cholestea puja. Operative Procedure: ??Right mastoid and ear content removal . GROSS: One formalin-filled container is received labeled with the p atient's name, Jeremiah Monteiro, and medical record number. The container is additionally labeled A - right mastoid and ear contents. ??It consists of multiple irregular fragments of fitch and montez friable material ranging in size from less than 0.1 to 1.1 c m in greatest dimension. ??The specimen is wrapped and entirely s ubmitted in cassette 1. (JIM Astorga/salma ??12/18/2011) MICROSCOPIC: Microscopic examination is performed. TESTING LAB LOCATION: [facility], [address] ?? [address] COLLECTION SITE: Client: [facility] Location: [facility] (B) Specimen Anatomical Collection Method Collection Time Receive d Time (Source) Location / / Volume Laterality 12/17/2011 1:44 PM 2 5:00 COMMERCIAL CREDIT REVIEWER PM COMMERCIAL CREDIT REVIEWER Hawk Varghese MD [facility] Performing Organization Address City/State/ZIP Code Phon e Number COPATH documented in this encounter Visit Diagnoses Not on filedocumented in this encounter Administered Medications Inactive Administered Medications - up to 3 most recent administrations Medication Order MAR Action Action Date Dose Rate Site bacitracin ophthalmic Given 12/17/2011 3:15 PM 2 Tubes Operative ointment COMMERCIAL CREDIT REVIEWER Site/Surgical S ite PRN, Starting on Fri12/17/11 at 1515, Intra-procedure EPINEPHrine 0.2mg (0.2mL Given 12/17/2011 1:03 PM 8.5 mLs Operative Site/Surgical of 1:1,000) in 20mL saline COMMERCIAL CREDIT REVIEWER Site PRN, Starting on Fri12/17/11 at 1303, Intra-procedure fentaNYL (SUBLIMAZE) injection 25-50 mcg Given 12/17/2011 6:06 PM COMMERCIAL CREDIT REVIEWER 50 mcg 25-50 mcg, Intravenous, EVERY 2 MIN PRN, other, acute pain while in PACU., Starting on Fri12/17/11 at 1657, MAX cumulative dose = 250 mcg. Use Fentanyl initially, as a short acting agent for acute pain control. If insufficient, or a longer acting agent is needed, begin Morphine or Hydromorphone if ordered., PACU Given 12/17/2011 5:10 PM COMMERCIAL CREDIT REVIEWER 50 mcg HYDROmorphone (DILAUDID) injection 0.2-0 .4 mg Given 12/17/2011 6:14 PM COMMERCIAL CREDIT REVIEWER 0.4 mg 0.2-0.4 mg, Intravenous, EVERY 10 MIN PRN, moderate to severe pain, acute pain.?May administer if RR is > 10 , Starting on Fri12/17/11 at 1657, If fentanyl is also ordered, use HYDROmorphone if pain control insufficient with fentanyl or a longer acting agent is needed. Max cumulative dose = 2 mg , PACU/Phase II labetalol (NORMODYNE,TRANDATE) injection 5-10 Given 12/17/19 12 5:09 PM COMMERCIAL CREDIT REVIEWER 5 mg mg 5-10 mg, Intravenous, EVERY 10 MIN PRN, PRN SBP > 160 or DBP > 100 while HR > 65 to max of 20mg total, Starting on Fri12/17/11 at 1657, PRN SBP > 160 or DBP > 100 while HR > 65 to max of 20mg total. Start at lowest dose., PACU sodium chloride 0.9% Given 12/17/2011 3:16 PM 700 mLs Operative Site/Surgical (bottle) irrigation COMMERCIAL CREDIT REVIEWER Site PRN, Starting on Fri12/17/11 at 1516, Area to irrigate and instructions: ., Intra-procedure documented in this encounter Active and Recently Administered Medications Due to Daylight Saving Time, this section may contain times in both CDT and COMMERCIAL CREDIT REVIEWER. Scheduled Medication Order 12/15/2011 12/16/2011 12/17/2011 clindamycin (CLEOCIN) IVPB 900 mg (COMPLETED) 1300 (Given - Provider: Obie Craig, HVAC TECH LABORATORY COURIER) 900 mg, Intravenous, for 60 Minutes, PRE -OP/PRE-PROCEDURE, For 1 dose, Give first dose within 1 hour PRIOR to incision., Pre-procedure PRN Medication Order 12/15/2011 12/16/2011 12/17/2011 bacitracin ophthalmic ointment (CANCELED) 1515 (Given - Provider: Hawk Varghese MD) PRN, Starting e 12/17/11 at 1515, Intra-procedure EPINEPHrine 0.2mg (0.2mL of 1:1,000) in 20mL saline (CANCELED) 1303 (Given - Provider: Hawk Varghese MD - Comment: Injection, not irrigation) PRN, Starting Fri12/17/11 at 1303, Intra-procedure fentaNYL (SUBLIMAZE) injection 25-50 mcg (CANCELED) 1710 (Given - Provider: Melida Jaramillo RN)1806 (Given - Provider: Melida Jaramillo RN) 25-50 mcg, Intravenous, EVERY 2 MIN PRN, Starting e 12/17/11 at 1657, other, acute pain while in PACU., MAX cumulative dose = 250 mcg. Use Fentanyl initially, as a short acting agent for acute pain con trol. If insufficient, or a longer actin g agent is needed, begin Morphine or Hydromorphone if ordered., PACU HYDROmorphone (DILAUDID) injection 0.2-0.4 mg (CANCELED) 1814 (Given - Provider: Melida Jaramillo RN) 0.2-0.4 mg, Intravenous, EVERY 10 MIN UT N, Starting e 12/17/11 at 1657, Until 12/17/11 at 2219, moderate to severe pain, acute pain.?May administer if RR is > 10 , PACU/Phase II, If fentanyl i s also ordered, use HYDROmorphone if vince n control insufficient with fentanyl or a longer acting agent is needed. Max cumulative dose = 2 mg labetalol (NORMODYNE,TRANDATE) injection 5-10 mg (CANCELED) 1709 (Given - Provider: Melida Jaramillo RN) 5-10 mg, Intravenous, EVERY 10 MIN PRN, PRN SBP > 160 or DBP > 100 while HR > 65 to max of 20mg total, Starting 12/17/11 at 1657, PRN SBP > 160 or DBP > 100 while HR > 65 to max of 20mg total. Start at lowest dose., PACU sodium chloride 0.9% (bottle) irrigation (CANCELED) 1516 (Given - Provider: Hawk Varghese MD) PRN, Starting 12/17/11 at 1516, Area to irrigate and instructions: ., Intra-procedure documented in this encounter Care Teams Buckle Attaching Machine Operator Relationship Specialty Start Date End Date Rene Chapa PCP - General 10/01/11 documented as of this encounter
--- OUTSIDE RECORDS SUMMARY | 2021-11-07 02:41 | XMS_ITS | Encounter Summary ---
:1940 Author Organization [place] Address [address] [place] [id number] Care Team Providers Name Role Phone Rene Chapa Primary Care Provider Unavailable Encounter Details Date Type Department Care Team Description 11/01/2021 Travel Social History Tobacco Use Types Packs/Day Years [...] was confirmed or suspected to have Coronavirus/COVID-19? documented as of this encounter Plan of Treatment Not on filedocumented as of this encounter Visit Diagnoses Not on filedocumented in this encounter Care Teams Electrical Supervisor Relationship Specialty Start Date End Date Rene Chapa PCP - General 10/01/11 documented as of this encounter
--- OUTSIDE RECORDS SUMMARY | 2021-11-07 02:41 | XMS_ITS | Encounter Summary ---
:1940 Author Organization [place] Address [address] [place] [address]. [place] [address] Care Team Providers Name Role Phone Rene Chapa Primary Care Provider Unavailable Reason for Visit Reason Comments Surgical Followup Right radical mastoidectomy. 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 He was seen recently by Dr. Ray who cleaned the cavity and told them it looked good. No otorrhea or otalgia. Here with his family. Physical examination: Male in no acute distress. Alert and answering questions appropriately. Facialmotion shows stable right facial weakness which was present preoperatively. Right ear examined underthe microscope. His mastoid cavity is quite small. There is still some Bacitracin within the cavity which was cleaned with suction. There was some fluid anteriorly which was cultured. The posterior portion of the cavity is clean and dry. There is quite a bit of scarring within the cavity and no exposed structures. Assessment and plan: Healing well. He will continue to follow with Dr. Ray for routine cleaning as he told them he was happy to follow him. We will call with the culture results. ITE TECHNICIAN documented in this encounter Nursing Notes 02/19/2012 9:45 AM CST >> Lori Rg RN Wed Feb 19, 2012 10:49 AM Patient will be notified with outstanding test/study results. Right ear culture >> KAREN GIORDANO Wed Feb 19, 2012 9:32 AM Patient presents with: Surgical Followup - Right radical mastoidectomy. Karen Giordano CORN POPPER documented in this encounter Plan of Treatment Not on filedocumented as of this encounter Procedures Procedure Name Priority Date/Time Associated Comments Diagnosis HC BINOCULAR Routine 02/22/2012 11:33 AM Otorrhea MICROSCOPY TERMITE TECHNICIAN FUNGUS CULTURE Routine 02/19/2012 10:07 AM Otorrhea Result s for this TERMITE TECHNICIAN procedure are i n the results section. EAR CULTURE AEROBIC Routine 02/19/2012 10:07 AM Otorrhea R esults for this BACTERIAL TERMITE TECHNICIAN procedure are i n the results section. documented in this encounter Results Fungus Culture, non-blood (02/19/2012 10:07 AM TERMITE TECHNICIAN) [facility] Method Time Signature Specimen Right Ear [facility] Description MICROBIOLOGY Culture Micro Culture [facility] negative MICROBIOLOGY after 4 weeks Micro Report FINAL [facility] Status 03/18/2012 MICROBIOLOGY Specimen Anatomical Collection Method Collection Time Receive d Time (Source) Location / / Volume Laterality 02/19/2012 10:07 02/19/2012 AM TERMITE TECHNICIAN 12:09 PM TERMITE TECHNICIAN Rachael Hussein MD LAB - MICRO GENERAL ORDERABL ES Performing Organization Address City/State/ZIP Code Phon e Number [facility] [address] [place] [address] [place] [facility] MICROBIOLOGY Ear culture (02/19/2012 10:07 AM TERMITE TECHNICIAN) [facility] gist Method Time Signature Specimen Right Ear [facility] Description MICROBIOLOGY Culture Micro No growth [facility] MICROBIOLOGY Micro Report FINAL [facility] Status 02/21/2012 MICROBIOLOGY Specimen Anatomical Collection Method Collection Time Receive d Time (Source) Location / / Volume Laterality 02/19/2012 10:07 02/19/2012 AM TERMITE TECHNICIAN 12:09 PM TERMITE TECHNICIAN Rachael Hussein MD LAB - MICRO GENERAL ORDERABL ES Performing Organization Address City/State/ZIP Code Phon e Number [facility] [address] [place] [place] [phone] [place] [address] [facility] MICROBIOLOG[facility] documented in this encounter Visit Diagnoses Diagnosis Otorrhea - Primary Otorrhea, unspecified documented in this encounter Care Teams Quality Systems Manager Relationship Specialty Start Date End Date Rene Chapa PCP - General 10/01/11 documented as of this encounter
--- OUTSIDE RECORDS SUMMARY | 2021-11-07 02:41 | XMS_ITS | Encounter Summary ---
:1940 Author Organization [place] Address [facility] [place] [address] Care Team Providers Name Role Phone Rene Chapa Primary Care Provider Unavailable Reason for Visit Auth/Cert Specialty Diagnoses / Procedures Referred By Contact Refer red To Contact Surgery Diagnoses Benign prostatic hyperplasia Benign prostatic hyperplasia [N40.0] Sh Periop Service s Procedures HC CYSTOURETHROSCOPY ZZC LASER VAPORIZATION PRST8 CTRL BLD COMPL CYSTOSCOPY and green light laser transuretheral resection of prostate [address] [place] [address] Phone: Referral ID Status Reason Start Date Expiration Date Visits Requ ested Visits Authorized [id number] 1 1 Encounter Details Date Type Department Care Team Description 11/01/2021 Anesthesia Event [facility] Jorden Hagen MD [facility] ANESTHESIOLOGISTS [address] [place] [id number] [facility] PeriOP ValMini norton, JET SKI MECHANIC STATION INSTALLER [address] [place] [id number] Services [address] [place] [address] Anesthesia Record Procedure Summary Procedure Name Responsible Anesthesia Start Anesthesia Stop Anesthesiologist Time Time CYSTOSCOPY and Erwin Navarro MD 11/01/2114 11/01 1046 light laser transuretheral resection of prostate (N/A Urethra) Events Date Time Event Comment 11/01/2021 0903 0914 An Start 0914 An Start Data 913 AN REASSESS I attest that I have identified and re-evaluated the patient immediat yvette before the induction of anesthesia and I am satisfi ed that the anesthetic plan is suitable for the patient' s condition and procedure. The first vital signs joyce rded are pre- induction. Mini Sneed APRN CR NA 0920 An Induction 0920 MD Present 0922 An LMA 0936 AN INCISION 1037 LMA Removed 1040 an stop data 1046 An Stop Electronically s igned by Mini Sneed APRN STATION INSTALLER on 2021 10:46 AM Name Total dexamethasone 4mg/mL 4 mg ePHEDrine 5 mg/mL 15 mg fentaNYL (SUBLIMAZE) injection 100 mcg lidocaine 2% 100 mg ondansetron 2mg/mL 4 mg phenylephrine (KANU-SYNEPHRINE) injection 360 mcg Provider ordered ALTERNATE pre op antibiotic. 1 each dexmedetomidine (PRECEDEX) in NS syringe (4 mcg/mL) 20 mcg phenylephrine 0.1 mg/mL infusion (mcg/kg/min) 1.5 mg furosemide 10 mg/mL 10 mg LR 800 mL Agents Name NO HELIOX O2 N2O Air Exp Sevoflurane Exp Isoflurane Exp Desflurane Exp N2O O2 Delivery Device Ins Sevoflurane Ins Isoflurane Ins Desflurane O2 Auxiliary Blood No blood administrations on file. Lines, Drains, and Airways Type Details Placement Removal Incision/Surgical Site Right; Ear 12/17/11 1344 by Peripheral IV 11/01/21; 0801; 20 G; 11/01/21 0801 by 11/01/21 1231 by Right; Wrist; Dane Louise, Keyon Zambrano, MARTIN Chlorhexidine Urethral Catheter 11/01/21; 1016; No; 11/01/21 1016 by 11/01/21 1334 by /GI/PLANER FEEDER Pelvic Sana Little, Inpatient, Nurse Procedure; 18 fr RN documented in this encounter Social History Tobacco [...] have Coronavirus/COVID-19? documented as of this encounter OR Notes Anesthesia Postprocedure Evaluation - Erwin Hagen MD - 11/01/2021 3:10 PM CDT Patient: Jeremiah Worthy Procedure: Procedure(s): CYSTOSCOPY and green light laser transuretheral resection of prostate Anesthesia Type: General Note: Postop Pain Control: Uneventful Sign Out: Well controlled pain PONV: No Neuro/Psych: Uneventful Sign Out: Acceptable/Baseline neuro status Airway/Respiratory: Uneventful Sign Out: Acceptable/Baseline resp. status CV/Hemodynamics: Uneventful Sign Out: Acceptable CV status; No obvious hypovolemia; No obvious fluid overload Other NRE: NONE DID A NON-ROUTINE EVENT OCCUR? No Last vitals: Vitals Value Taken Time BP 133/73 11/01/21 1115 Temp 36.3 ??C (97.3 ??F) 11/01/21 1042 Pulse 71 11/01/21 1117 Resp 72 11/01/21 1117 SpO2 97 % 11/01/21 1116 Vitals shown include unvalidated device data. Electronically Signed By: Erwin Hagen MD November 01, 2021 3:10 PM Anesthesia Preprocedure Evaluation - Erwin Hagen MD - 11/01/2021 8:19 AM CDT Images from the original note were not included. Anesthesia Pre-Procedure Evaluation Patient: Jeremiah Worthy : 1940 Procedure : Procedure(s): CYSTOSCOPY and green light laser transuretheral resection of prostate Past Medical History: Diagnosis Date ??? Anemia ??? Arthritis ??? Arshad's esophagus ??? Chronic lymphocytic leukemia (H) ??? Deafness in right ear ??? Gastroesophageal reflux disease ??? Hearing loss ??? Hx of gastric ulcer 2005 WITH GI BLEED ??? Mixed hyperlipidemia ??? Nasal congestion ??? Obese ??? Prediabetes ??? Sleep apnea CPAP ??? Small lymphocytic lymphoma (H) ??? Stiffness joints Past Surgical History: Procedure Laterality Date ??? COLECTOMY 2001 Partial ??? COLONOSCOPY May 2008 ??? ESOPHAGOSCOPY, GASTROSCOPY, DUODENOSCOPY (EGD), DILATATION, COMBINED February 2007 ??? HERNIA REPAIR 2004 ??? HERNIA REPAIR July 1994 ??? MASTOID SURGERY 1983 Right ear ??? MASTOID SURGERY February 2007 Left ear ??? MASTOIDECTOMY 12/17/2011 Procedure: MASTOIDECTOMY; Right Radical Mastoidectomy,Left Ear Exam under Anesthesia Facial Nerve Monitoring ; Surgeon: Rachael Hussein MD; Location: [facility] OR ??? VASECTOMY 1971 ??? ZZC ANESTH,SHOULDER REPLACEMENT December 2007 ??? ZZC ANESTH,SHOULDER REPLACEMENT March 2010 Left Shoulder ??? ZZC TOTAL KNEE ARTHROPLASTY April 2005 Allergies Allergen Reactions ??? Aspirin Ate hole in stomach needed a blood transfusion from taking an 81 mg ASA ??? Penicillins Tongue swelling, throat swelling. ??? Percocet [Oxycodone-Acetaminophen] Other (See Comments) Stomach upset Social History Tobacco Use ??? Smoking status: Former Smoker Packs/day: 4.00 Years: 1.00 Pack years: 4.00 Types: Cigarettes Quit date: 02/11/1968 Years since quittin.7 ??? Smokeless tobacco: Not on file Substance Use Topics ??? Alcohol use: Yes Comment: Every two weeks Wt Readings from Last 1 Encounters: 11/01/21 118.4 kg (261 lb) Anesthesia Evaluation ROS/MED HX ENT/Pulmonary: Comment: S/p radical mastoidectomy, hard of hearing (+) sleep apnea, uses CPAP, tobacco use, Past use, (-) asthma and COPD Neurologic: (-) no seizures and no CVA Cardiovascular: (+) Dyslipidemia ----- (-) hypertension, CAD, CHF and arrhythmias METS/Exercise Tolerance: Hematologic: Musculoskeletal: (+) arthritis, GI/Hepatic: (+) GERD, esophageal disease (Arshad's), (-) liver disease Renal/Genitourinary: (-) renal disease Endo: (+) Obesity, (-) Type I DM and Type II DM Psychiatric/Substance Use: Infectious Disease: Malignancy: (+) Malignancy, History of Lymphoma/Leukemia. Other: Physical Exam Airway Mallampati: III TM distance: > 3 FB Neck ROM: full Mouth opening: > 3 cm Respiratory Devices and Support Dental (+) missing B=Bridge, C=Chipped, L=Loose, M=Missing Cardiovascular Rhythm and rate: regular Pulmonary breath sounds clear to auscultation OUTSIDE LABS: CBC: No results found for: WBC, HGB, HCT, PLT BMP: Lab Results Component Value Date POTASSIUM 3.8 11/01/2021 COAGS: No results found for: PTT, INR, FIBR POC: No results found for: BGM, HCG, HCGS HEPATIC: No results found for: ALBUMIN, PROTTOTAL, ALT, AST, GGT, ALKPHOS, BILITOTAL, BILIDIRECT, FABI OTHER: No results found for: PH, LACT, A1C, LUCIAN, PHOS, MAG, LIPASE, AMYLASE, TSH, T4, T3, CRP, SED Anesthesia Plan ASA Status: 2 Anesthesia Type: General. - Airway: LMA Induction: Intravenous, Propofol. Maintenance: Balanced. Consents Anesthesia Plan(s) and associated risks, benefits, and realistic alternatives discussed. Questions answered and patient/sales representative trainee(s) expressed understanding. - Discussed: - Discussed with: Patient Postoperative Care Pain management: Multi-modal analgesia. PONV prophylaxis: Ondansetron (or other 5HT-3), Dexamethasone or Solumedrol, Background Propofol Infusion Comments: Erwin Hagen MD documented in this encounter Miscellaneous Notes Anesthesia Care Transfer Note - Mini Sneed APRN STATION INSTALLER - 11/01/2021 10:45 AM CDT Patient: Jeremiah Worthy Procedure: Procedure(s): CYSTOSCOPY and green light laser transuretheral resection of prostate Diagnosis: Benign prostatic hyperplasia [N40.0] Diagnosis Additional Information: No value filed. Anesthesia Type: General Note: Oropharynx: oropharynx clear of all foreign objects and spontaneously breathing Level of Consciousness: awake Oxygen Supplementation: face mask Level of Supplemental Oxygen (L/min / FiO2): 6 Independent Airway: airway patency satisfactory and stable Dentition: dentition unchanged Vital Signs Stable: post-procedure vital signs reviewed and stable Report to RN Given: handoff report given Patient transferred to: PACU Comments: At end of procedure, spontaneous respirations, adequate tidal volumes, followed commands to voice, LMA removed atraumatically. Oxygen via facemask at 6 liters per minute to PACU. Oxygen tubing connected to wall O2 in PACU, SpO2, NiBP, and EKG monitors and alarms on and functioning, report onpatient's clinical status given to BULWARK CARPENTER, RN questions answered. Handoff Report: Identifed the Patient, Identified the Reponsible Provider, Reviewed the pertinent medical history, Discussed the surgical course, Reviewed Intra-OP anesthesia mangement and issues during anesthesia, Set expectations for post-procedure period and Allowed opportunity for questions and acknowledgement of understanding Vitals: Vitals Value Taken Time BP 134/78 11/01/21 1042 Temp Pulse 79 11/01/21 1044 Resp 15 11/01/21 1044 SpO2 98 % 11/01/21 1044 Vitals shown include unvalidated device data. Electronically Signed By: Mini Sneed APRN CRNA November 01, 2021 10:45 AM documented in this encounter Plan of Treatment Not on filedocumented as of this encounter Visit Diagnoses Not on filedocumented in this encounter Administered Medications Inactive Administered Medications - up to 3 most recent administrations Medication Order MAR Action Action Date Dose Rate Site dexamethasone (DECADRON) injection Given 11/01/2021 9:28 AM CDT 4 mg Intravenous, PRN, Administer over 1 Minutes, Starting on Kathrin 11/01/21 at 0928, Anesthesia Intra-op dexmedetomidine (PRECEDEX) 4 mcg/mL in NS Given 11/01/2021 10:06 AM CDT 12 mcg PRE-MIX Intravenous, PRN, Starting on Kathrin 11/01/21 at 0930, Anesthesia Intra-op Given 11/01/2021 9:30 AM CDT 8 mcg ePHEDrine injection Given 11/01/2021 9:53 AM CDT 5 mg Intravenous, PRN, Starting on Kathrin 11/01/21 at 0933, Anesthesia Intra-op Given 11/01/2021 9:33 AM CDT 10 mg fentaNYL (PF) (SUBLIMAZE) injection Given 11/01/2021 9:33 AM CDT 50 mcg Intravenous, PRN, Administer over 3-5 Minutes, Starting on Kathrin 11/01/21 at 0920, Anesthesia Intra-op Given 11/01/2021 9:30 AM CDT 25 mcg Given 11/01/2021 9:20 AM CDT 25 mcg furosemide (LASIX) injection Given 11/01/2021 10:16 AM CDT 10 mg Intravenous, PRN, Administer over 1-3 Minutes, Starting on Kathrin 11/01/21 at 1016, Anesthesia Intra-op lactated ringers infusion New Bag 11/01/2021 9:14 AM CDT Intravenous, CONTINUOUS PRN, Anesthesia Intra-op, Starting on Kathrin 11/01/21 at 0914, Until Kathrin 11/01/21 at 1046 lidocaine 2% injection (MDV) Given 11/01/2021 9:20 AM CDT 100 mg Other, PRN, Starting on Kathrin 11/01/21 at 0920, Anesthesia Intra-op ondansetron (ZOFRAN) injection Given 11/01/2021 10:26 AM CDT 4 mg Intravenous, PRN, Administer over 2-5 Minutes, Starting on Kathrin 11/01/21 at 1026, Anesthesia Intra-op phenylephrine (KANU-SYNEPHRINE) injection Bolus 11/01/2021 9:36 AM CDT 200 mcg Intravenous, CONTINUOUS PRN, Starting on Kathrin 11/01/21 at 0920, Anesthesia Intra-op New Bag 11/01/2021 9:20 AM CDT 160 mcg phenylephrine 0.1 mg/mL infusion Restarted 11/01/2021 0.2 mcg/kg/min 14.208 (mcg/kg/min) 10:11 AM CDT mL/hr Intravenous, CONTINUOUS PRN, Starting on Kathrin 11/01/21 at 0941, Anesthesia Intra-op Rate/Dose Change 11/01/2021 10:00 AM CDT 0.3 mcg/kg/min 21.312 mL/h r Rate/Dose Change 11/01/2021 9:56 AM CDT 0.4 mcg/kg/min 28.416 mL/hr Provider ordered ALTERNATE pre op antibi otic. Given 11/01/2021 9:14 AM CDT 1 each CONTINUOUS, Starting on Kathrin 11/01/21 at 0730, Until Kathrin 11/01/21 at 1044, Pre-procedure documented in this encounter Care Teams Lining Presser Relationship Specialty Start Date End Date Rene Chapa PCP - General 10/01/11 documented as of this encounter
--- OUTSIDE RECORDS SUMMARY | 2021-11-07 02:41 | XMS_ITS | Encounter Summary ---
:1940 Author Organization [place] Address Formerly [facility] [place] [address] Care Team Providers Name Role Phone Rene Chapa Primary Care Provider Unavailable Reason for Visit Auth/Cert Specialty Diagnoses / Procedures Referred By Contact Refer red To Contact Surgery Diagnoses Benign prostatic hyperplasia Benign prostatic hyperplasia [N40.0] Sh Periop Service s Procedures HC CYSTOURETHROSCOPY ZZC LASER VAPORIZATION PRST8 CTRL BLD COMPL CYSTOSCOPY and green light laser transuretheral resection of prostate [address] [place] [address] Phone: Referral ID Status Reason Start Date Expiration Date Visits Requ ested Visits Authorized [id number] 1 1 Encounter Details Date Type Department Care Team Description 11/01/2021 Surgery [facility] George Reynoso MD CYSTOSCOPY and green [place] [facility] PA transuretheral resection [address] of prostate [address] [place] [address] [place] [address] [phone] Surgery Details Date/Time Status Location OR Service Patient Case Class Case Tr auma Class Type Case? 11/01/21 9:00 Posted OR OR [facility] Urology Same Day AM Surgery Panel 1 Procedure LRB Anes Op Region Wound Class Commen ts CYSTOSCOPY and green light laser N/A General Urethra II- Clean Contaminated transuretheral resection of prostate Surgeon Surgeon Role Service Panel George Reynoso MD Primary Urology 1 Case Notes [employer] invoice rec'd Special Needs OFFICE [facility] documented in this encounter Social History Tobacco [...] have Coronavirus/COVID-19? documented as of this encounter Last Filed Vital Signs Vital Sign Reading Time Taken Comments Blood Pressure 133/77 11/01/2021 10:45 AM CDT Pulse 79 11/01/2021 10:45 AM CDT Temperature 36.3 ??C (97.3 ??F) 11/01/2021 10:42 AM CDT Respiratory Rate 13 11/01/2021 10:45 AM CDT Oxygen Saturation 97% 11/01/2021 10:45 AM CDT Inhaled Oxygen Concentration - - Weight 118.4 kg (261 lb) 11/01/2021 7:54 AM CDT Height 175.3 cm (5' 9) 11/01/2021 7:54 AM CDT Body Mass Index 38.54 11/01/2021 7:54 AM CDT documented in this encounter Discharge Instructions Discharge InstructionsLoren Perez RN - 11/01/2021 10:47 AM CDT Same Day Surgery Discharge Instructions for Sedation and General Anesthesia It's not unusual to feel dizzy, light-headed or faint for up to 24 hours after surgery or while taking pain medication. If you have these symptoms: sit for a few minutes before standing and have someone assist you when you get up to walk or use the bathroom. You should rest and relax for the next 24 hours. We recommend you make arrangements to have an adultstay with you for at least 24 hours after your discharge. Avoid hazardous and strenuous activity. DO NOT DRIVE any vehicle or operate mechanical equipment for 24 hours following the end of your surgery. Even though you may feel normal, your reactions may be affected by the medication you have received. Do not drink alcoholic beverages for 24 hours following surgery. Slowly progress to your regular diet as you feel able. It's not unusual to feel nauseated and/or vomit after receiving anesthesia. If you develop these symptoms, drink clear liquids (apple juice, isis noel, broth, 7-up, etc. ) until you feel better. If your nausea and vomiting persists for 24 hours, please notify your surgeon. All narcotic pain medications, along with inactivity and anesthesia, can cause constipation. Drinking plenty of liquids and increasing fiber intake will help. For any questions of a medical nature, call your surgeon. Do not make important decisions for 24 hours. If you had general anesthesia, you may have a sore throat for a couple of days related to the breathing tube used during surgery. You may use Cepacol lozenges to help with this discomfort. If it worsens or if you develop a fever, contact your surgeon. If you feel your pain is not well managed with the pain medications prescribed by your surgeon, please contact your surgeon's office to let them know so they can address your concerns. DISCHARGE INSTRUCTIONS FOR CATHETER CARE AT HOME . Basic Catheter Care Always wash hands before and after handling your catheter. Use soap and water to wash the area around your catheter. Do this procedure twice a day. Proper cleansing will help keep the area from becoming irritated or infected. Leg Bag This is a small plastic bag that collects urine draining from your catheter and then strapped aroundyour thigh. It will need to be emptied when the bag is 1/2 to 3/4 full. Large Drainage Bag This bag is larger than the leg bag and holds more urine. It is to be used while at home, especiallyat night. Before you go to bed, change the leg bag to the large drainage bag. Pinch off the catheter with your fingers and swab the connection between the catheter and leg bag with alcohol sponge. Disconnect the leg bag and connect the large drainage bag to your catheter. When you get into bed, arrange the drainage tubing so that it doesn???t kink. Be sure to keep the bag below the level of your bladder and allow enough slack for turning. Cleaning Your Drainage Bags Wash hands. Using funnel or syringe, fill the bag half full with a solution of 1/2 vinegar and 1/2 water. Shake bag, allowing mixture to cleanse inside of bag. Empty out all vinegar and water mixture from your bag. Hang bag to dry when not in use. Clean your bags anytime you change them. Helpful Hints Always keep drainage bags below bladder level to insure adequate drainage. Drink 4-6 glasses of water daily along with other fluids you normally drink to keep urine free of infection and / or clots. If you notice no urine in your bag for 2 to 4 hours or you develop extreme discomfort in bladder area, your catheter maybe plugged. Notify your doctor. If you notice your urine becomes foul smelling and cloudy, notify your doctor. Also notify your doctor if you develop fever or chills. If you notice urine leaking around the outside of the catheter, check to be sure catheter or tubing is not kinked. Don???t use leg bag while in bed. Because you had anesthesia today and your history of sleep apnea, it is extremely important that you use your CPAP machine for the next 24 hours while napping or sleeping. documented in this encounter Medications at Time of Discharge Medication Sig Dispensed Refills Start Date End Date atorvastatin (LIPITOR) 40 Take 40 mg by mouth 0 MG tablet daily ciprofloxacin (CIPRO) 500 Take 1 tablet (500 14 tablet 0 11/08/2021 MG tabletIndications: BPH mg) by mouth 2 with urinary obstruction times daily for 14 doses Diphenhydramine-APAP, Take by mouth 0 sleep, (TYLENOL PM EXTRA daily. STRENGTH PO) fexofenadine (MARKIE) 180 Take 180 mg by 0 MG tablet mouth every morning fish oil-omega-3 fatty Take 2 g by mouth 0 acids 1000 MG capsule daily. furosemide (LASIX) 20 MG Take 20 mg by mouth 0 tablet daily ibrutinib (IMBRUVICA) 420 Take 420 mg by 0 MG tablet mouth daily melatonin 3 MG tablet Take by mouth 0 nightly as needed. Multiple Vitamin Take by mouth every 0 (MULTI-VITAMIN PO) morning. ofloxacin (FLOXIN) 0.3 % 4-5 drops to the right ear matthew craven day until return to clinic 1 Bottle 4 01/06/2012 otic solutionIndications: (Start in one week) Otorrhea omeprazole (PRILOSEC) 20 Take 20 mg by mouth [address] capsule daily potassium chloride ER Take 10 mEq by 0 (MICRO-K) 10 MEQ CR mouth daily capsule simvastatin (ZOCOR) 20 MG Take 20 mg by mouth 0 tablet every morning sulfamethoxazole-trimethop Take 1 tablet by 14 tablet 0 11/08/2021 rim (BACTRIM DS) 800-160 mouth 2 times daily MG tabletIndications: for 7 days Prostate cancer (H) tolterodine ER (DETROL LA) Take 1 capsule (4 7 capsule 0 4 MG 24 hr mg) by mouth daily capsuleIndications: BPH with urinary obstruction traMADol (ULTRAM) 50 MG Take 1 tablet (50 10 tablet 0 11/0111/04/2021 tabletIndications: mg) by mouth every Prostate cancer (H) 6 hours as needed for severe pain (7-10) documented as of this encounter Progress Notes Loren Perez RN - 11/01/2021 11:39 AM CDT Patient has had a zaidi catheter for many weeks prior to surgery. Zaidi teaching completed and supplies given in PACU. Patient moved to Phase II to reunite with and receive remaining discharge instructions and paper RX. George Reynoso MD - 11/01/2021 10:38 AM CDT UROLOGY BRIEF NOTE PREOP DX RETENTION, BPH POSTOP DX -SAME PROCEDURE CYSTO LASER TURP ANES-GEN SURGEON MYKEL EBL 5CC FINDINGS OBSTRUCTING PROSTATE,RESIDUAL ADENOMA 250K JOULES documented in this encounter H&P Notes Erwin Hagen MD - 11/01/2021 8:26 AM CDT I have reviewed the surgical (or preoperative) H&P that is linked to this encounter, and examined the patient. There are no significant changes Source Note - Scan, Provider - 10/30/2021 12:06 PM CDT documented in this encounter Plan of Treatment Not on filedocumented as of this encounter Procedures Procedure Name Priority Date/Time Associated Diagnosis Comme nts VAPORIZATION, 11/01/2021 9:04 AM CDT Benign prostatic PROSTATE, hyperplasia PHOTOSELECTIVE, USING [address]ATT KTP LASER Case Notes [employer] invoice rec'd Special Needs OFFICE WILL CONTACT [facility] test POTASSIUM STAT 11/01/2021 7:50 AM CDT Resul ts for this procedure are in the results section. EKG CARDIAC - HIM SCAN 10/24/2021 12:00 AM CDT documented in this encounter Results Potassium (11/01/2021 7:50 AM CDT) P [...] Address City/State/ZIP Code Phon [place] [address] [place], [place] [address]e. S. 1st floor, Room 20B EKG CARDIAC - HIM SCAN (10/24/2021 12:00 AM CDT) Specimen (Source) Anatomical Location Collection Method / Collectio n Time Received Time / Laterality Volume 10/24/2021 Narrative This result has an attachment that is no t available. Provider Outside ECG ORDERABLES documented in this encounter Visit Diagnoses Diagnosis Prostate cancer (H) - Primary Malignant neoplasm of prostate BPH with urinary obstruction Hypertrophy of prostate with urinary obs truction and other lower urinary tract symptoms (LUTS) Benign prostatic hyperplasia Unspecified hyperplasia of prostate with out urinary obstruction and other lower urinary tract symptoms (LUTS) documented in this encounter Administered Medications Inactive Administered Medications - up to 3 most recent administrations Medication Order MAR Action Action Date Dose Rate Site fentaNYL (PF) (SUBLIMAZE) injection 25 m cg 25 mcg, Intravenous, EVERY 5 MIN PRN, moderate to morgan re pain, Starting on Kathrin 11/01/21 at 1046, Administer fentaNYL (YATES BLIMAZE) for acute pain control. Move to HYDROmorphone (DILAUDID): - IF patient has received up to 4 doses (100 mcg) of fentaNYL (SUBLIMAZE), OR - IF severe pain (pain score greater than or equal to seven (7) or inability of patient to par ticipate in post op recovery due to pain) AFTER 2 doses fentaNYL (SUBLIMAZE). WAIT 5 minutes AFTER last fentaNYL (SUBLIMAZE) dose before administering HYDROmorphone (DILAUDID). Postop Anesthesia Phase I only. Notify Provider to assess for uncontroll ed pain or analgesic side effects. Do NOT revert back to fentanyl (SUBLIMAZE) afte r moving to HYDROmorphone (DILAUDID)., PACU fentaNYL (PF) (SUBLIMAZE) injection 25 m cg 25 mcg, Intravenous, EVERY 15 MIN PRN, other, acute pa in while in Phase II, Starting on Kathrin 11/01/21 at 1046, Up to a total of 100 mcg. Use as a short acting IV agent for acute pain control. Patient must be monitore d a minimum of 30 minutes before leaving the facility and meet all Phase II disc harge criteria., Phase ll gentamicin (GARAMYCIN) infusion 80 mg New Bag 11/01/2021 8:09 AM CDT 80 mg Routine, 80 mg, Intravenous, ONCE, On Kathrin 11/01/21 at 0730, For 1 dose, Indications: Perioperative Pharmacoprophylaxis, Pre-procedure hydrALAZINE (APRESOLINE) injection 2.5-5 mg 2.5-5 mg, Intravenous, EVERY 20 MIN PRN, other, for Systolic Blood Pressure greater than 170 mmHg, Administer over 1 Minutes , Starting on Kathrin 11/01/21 at 1046, Please call anesthesiologist before administrat ion. Max cumulative dose = 20 mg. FOR USE IN PACU ONLY. Goal BP <170/100, hold for HR >90 bpm, P ACU HYDROmorphone (DILAUDID) injection 0.2 m g 0.2 mg, Intravenous, EVERY 5 MIN PRN, moderate to morgan re pain, Starting on Kathrin 11/01/21 at 1046, Administer HYDROmorphon e (DILAUDID) up to a total of 5 doses (1 mg) for moderate to severe pain. Notify Provider to assess for uncontrolled pain or analgesic side effects. May increase dose to 0.4 mg as needed if 0.2 mg not effective. Max dose 3 mg., PACU lactated ringers infusion at 100 mL/hr, Intravenous, CONTINUOUS, Continue until IV catheter is weaned, PACU/Phase II, Starting on Kathrin 11/01/21 at 1100, Until Kathrin 11/01/21 at 1434 lidocaine (XYLOCAINE) 2 % external gel Given 11/01/2021 10:16 AM CDT 1 Tube PRN, Starting on Kathrin 11/01/21 at 1016, Intra-procedure ondansetron (ZOFRAN ODT) ODT tab 4 mg 4 mg, Oral, EVERY 30 MIN PRN, nausea, St arting on Kathrin 11/01/21 at 1046, For 2 doses, MAX total dose = 8 mg, including OR dosi ng. If not resolved in 15 minutes, then go to step 2 [prochlorperazine (COMPAZINE), if ordered]. With dry hands, peel back foil backing and gently remove tablet. Do not push ora l disintegrating tablet through foil backing. Administer immediately on tongue and oral disintegrating tablet dissolves in seconds, then swallow with saliva. Liquid not required., PACU/Phase II ondansetron (ZOFRAN) injection 4 mg 4 mg, Intravenous, EVERY 30 MIN PRN, tutu sea, Administer over 2-5 Minutes, Starting on Kathrin 11/01/21 at 1046, For 2 doses, MAX total dose = 8 mg, including OR dosing. If not resolved in 15 minutes, then go to step 2 [prochlo rperazine (COMPAZINE), if ordered]. Irritant., PACU/Phase II sodium chloride 0.9% (bag) irrigation Given 11/01/2021 10:05 AM CDT 3,000 mLs PRN, Starting on Kathrin 11/01/21 at 1003, Intra-procedure Given 11/01/2021 10:03 AM CDT 3,000 mLs Given 11/01/2021 9:37 AM CDT 3,000 mLs documented in this encounter Active and Recently Administered Medications Times are shown in CDT. Scheduled Medication Order 10/30/2021 10/31/2021 11/01/2021 gentamicin (GARAMYCIN) infusion 80 mg (COMPLETED) 08 (New Bag - Provider: Dane Louise RN) Routine, 80 mg, Intravenous, ONCE, On Th u 11/01/21 at 0730, For 1 dose, Indications: Perioperative Pharmacoprophylaxis, Pre-procedure Continuous Medication Order 10/30/2021 10/31/2021 11/01/2021 lactated ringers infusion 1100 ( Canceled Entry - Provider: Orders Generic Provider - Comment: Automatically canceled at discontinue of medication order) at 100 mL/hr, Intravenous, CONTINUOUS, C ontinue until IV catheter is weaned, PACU/Phase II, Starting on Kathrin 11/01/21 at 1100, Until Kathrin 11/01/21 at 1434 Provider ordered ALTERNATE pre op antibiotic. (CANCELED) 0914 (Given - Provider: Mini Sneed APRN CATTLE BROKER) CONTINUOUS, Starting on Kathrin 11/01/21 at 0 730, Until Kathrin 11/01/21 at 1044, Pre-procedure PRN Medication Order 10/30/2021 10/31/2021 11/01/2021 fentaNYL (PF) (SUBLIMAZE) injection 25 mcg 25 mcg, Intravenous, EVERY 5 MIN PRN, mo derate to severe pain, Starting on Kathrin 11/01/21 at 1046, Administer fentaNYL (SUBLIMAZE) for acute pain control. Move to HYDROmorphone (DILAUDID): - IF patient has received up to 4 doses (100 mcg) of fen taNYL (SUBLIMAZE), OR - IF severe pain (pain score greater than or equal to seven (7) or inability of patient to participate in post op recovery due to pain) AFTE R 2 doses fentaNYL (SUBLIMAZE). WAIT 5 m inutes AFTER last fentaNYL (SUBLIMAZE) dose before administering HYDROmorphone (DILAUDID). Postop Anesthesia Phase I only. Notify Provider to assess for uncontrol led pain or analgesic side effects. Do N OT revert back to fentanyl (SUBLIMAZE) after moving to HYDROmorphone (DILAUDID)., PACU fentaNYL (PF) (SUBLIMAZE) injection 25 mcg 25 mcg, Intravenous, EVERY 15 MIN PRN, o ther, acute pain while in Phase II, Starting on Kathrin 11/01/21 at 1046, Up to a total of 100 mcg. Use as a short acting IV agent for acute pain control. Patient must be monitored a minimum of 30 minutes be fore leaving the facility and meet all Phase II discharge criteria., Phase ll hydrALAZINE (APRESOLINE) injection 2.5-5 mg 2.5-5 mg, Intravenous, EVERY 20 MIN PRN, other, for Systolic Blood Pressure greater than 170 mmHg, Administer over 1 Minutes, Starting on Kathrin 11/01/21 at 1046, Please call anesthesiologist before adminis tration. Max cumulative dose = 20 mg. FO R USE IN PACU ONLY. Goal BP <170/100, hold for HR >90 bpm, PACU HYDROmorphone (DILAUDID) injection 0.2 mg 0.2 mg, Intravenous, EVERY 5 MIN PRN, mo derate to severe pain, Starting on Kathrin 11/01/21 at 1046, Administer HYDROmorphone (DILAUDID) up to a total of 5 doses (1 mg) for moderate to severe pain. Notify Pr ovider to assess for uncontrolled pain o r analgesic side effects. May increase dose to 0.4 mg as needed if 0.2 mg not effective. Max dose 3 mg., PACU lidocaine (XYLOCAINE) 2 % external gel (CANCELED) 1016 (Given - Provider: George Reynoso MD) PRN, Starting on Kathrin 11/01/21 at 1016, Intra-procedure ondansetron (ZOFRAN ODT) ODT tab 4 mg(Linked Group 1) 4 mg, Oral, EVERY 30 MIN PRN, nausea, St arting on Kathrin 11/01/21 at 1046, For 2 doses, MAX total dose = 8 mg, including OR dosing. If not resolved in 15 minutes, then go to step 2 [prochlorperazine (COMPAZ INE), if ordered]. With dry hands, peel back foil backing and gently remove tablet. Do not push oral disintegrating tablet through foil backing. Administer immediately on tongue and oral disintegrating tablet dissolves in seconds, then swallo w with saliva. Liquid not required., PACU/Phase II ondansetron (ZOFRAN) injection 4 mg(Linked Group 1) 4 mg, Intravenous, EVERY 30 MIN PRN, tutu sea, Administer over 2-5 Minutes, Starting on Kathrin 11/01/21 at 1046, For 2 doses, MAX total dose = 8 mg, including OR dosing. If not resolved in 15 minutes, then go to step 2 [prochlorperazine (COMPAZINE), if ordered]. Irritant., PACU/Phase II sodium chloride 0.9% (bag) irrigation (CANCELED) 0936 (Given - Provider: George Reynoso MD)0937 (Given - Provider: George Reynoso MD)1003 (Given - Provider: George Reynoso MD)1005 (Given - Provider: George Reynoso MD) PRN, Starting on Kathrin 11/01/21 at 1003, Intra-procedure Linked Groups Order Group 1: ondansetron (ZOFRAN ODT) ODT tab 4 mgJump to med 4 mg, Oral, EVERY 30 MIN PRN, nausea, St arting on Kathrin 11/01/21 at 1046, For 2 doses
MAX total dose = 8 mg, including OR dosing. If not resolved in 15 minutes, then go to step 2 [prochlorperazine (COMPAZINE), if ordered]. With dry hands, peel back foil backing and gently remove tablet. Do not push oral disintegrating tablet through foil backing. Administer immediately on tongue and ora l disintegrating tablet dissolves in sec onds, then swallow with saliva. Liquid not required.
PACU/Phase II Or ondansetron (ZOFRAN) injection 4 mgJump to med 4 mg, Intravenous, EVERY 30 MIN PRN, tutu sea, Administer over 2-5 Minutes, Starting on Kathrin 11/01/21 at 1046, For 2 doses
MAX total dose = 8 mg, including OR dosing. If not resolved in 15 minutes, then go to step 2 [prochlorperazine (CO MPAZINE), if ordered]. Irritant.
PACU/Phase II documented in this encounter Care Teams Customer Data Technician Relationship Specialty Start Date End Date Rene Chapa PCP - General 10/01/11 documented as of this encounter
--- OUTSIDE RECORDS SUMMARY | 2021-11-07 02:41 | XMS_ITS | Encounter Summary ---
:1940 Author Organization [place] Address [address] [place] [address]. [place] [address] Care Team Providers Name Role Phone Rene Chapa Primary Care Provider Unavailable Encounter Details Date Type Department Care Team Description 04/06/2012 Results Only Ear, Nose and Throat Rachael Hussein MD Clinic [address] [facility] [address], Clinic [address] [place] [address] [facility] [phone] (Work) [facility] [address] [facility] [address] [place], [place] [address] Social History Tobacco Use Types Packs/Day Years [...] on file documented as of this encounter Plan of Treatment Scheduled Orders Name Type Priority Associated Diagnoses Order [facility] CT Digital Archive-Non Imaging Order ed: 04/06/2012 Yana documented as of this encounter Visit Diagnoses Not on filedocumented in this encounter Care Teams Public Health Dietitian Relationship Specialty Start Date End Date Rene Chapa PCP - General 10/01/11 documented as of this encounter
--- OUTSIDE RECORDS SUMMARY | 2021-11-07 02:41 | XMS_ITS | Encounter Summary ---
:1940 Author Organization [place] Address [facility] [place] [address] Care Team Providers Name Role Phone Rene [...] of prostate [address] [place] [address] Phone: Referral ID Status Reason Start Date Expiration Date Visits Requ ested Visits Authorized [id number] 1 1 Encounter Details Date Type Department Care Team Description 11/01/2021 Hospital Encounter [facility] George Reynoso P rostate cancer (H) (Primary Dx); [facility] PACU BPH with urinary obstruction [address] [facility] [place] [address] [address] [phone] [place] [id number] Social History Tobacco Use Types Packs/Day Years [...] % 4-5 drops to the right ear t [...] PROCEDURE CYSTO LASER TURP ANES-GEN SURGEON MYKEL VARGAS 5CC FINDINGS OBSTRUCTING PROSTATE,RESIDUAL ADENOMA 250K JOULES [...] NANOMETER 80 WATT KTP LASER Case Notes Reali[facility] invoice rec'd Special Needs OFFICE WILL CONTACT [...] Address City/State/ZIP Code [place]on [place] [address] Care Lab [address] 1st floor, Room 20B EKG CARDIAC [...] at 1100, Until Kathrin 11/01/21 at 1434 ondansetron (ZOFRAN ODT) ODT tab 4 mg [...] rperazine (COMPAZINE), if ordered]. Irritant., PACU/Phase II documented in this encounter Active and Recently [...] 0914 (Given - Provider: Mini Sneed APRN CRNA) CONTINUOUS, Starting on Kathrin 11/01/21 at 0 [...] II documented in this encounter Care Teams Envelope Folding Machine Operator Relationship Specialty Start Date End Date Rene Chapa PCP - General 10/01/11 documented as of this encounter
--- OUTSIDE RECORDS SUMMARY | 2021-11-07 02:41 | XMS_ITS | Encounter Summary ---
:1940 Author Organization [place] Address [address] [place] [address] Care Team Providers Name Role Phone Rene Chapa Primary Care Provider Unavailable Reason for Visit Reason Comments Surgical Followup left cholesteatoma Encounter Details Date Type Department Care Team Description 01/06/2012 Office Visit Ear, Nose and Throat Rachael Hussein MD Otorrhea (Primary Dx); Clinic [address] [facility] Cholesteatoma 8th Floor, Clinic 8A [facility] [address] [place], [place] Building [address] [place] [address] [facility] [place] [address] Social History Tobacco Use Types [...] on file documented as of this encounter Patient Instructions Patient InstructionsLori Rg RN - 01/06/2012 11:27 AM CST You will need to schedule a follow up appointment in 6 weeks See the local ENT in 3 weeks. Start the ear drops in one week- 4 drops twice a day (Floxin) to the right ear, make sure ear drops are body temperature. When showering place vaseline cotton ball in ear You can resume all activities as before surgery. Please call our clinic for any questions regarding today's visit. [phone]. P METAL COLLECTOR documented in this encounter Progress Notes Rachael Hussein MD - 01/06/2012 11:38 AM CST Jeremiah Worthy is here for a 3 week check after right radical mastoidectomy for cholesteatoma. 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 He says that he has been doing fine. He saw Dr. Ray at 1 week postop and had the packing removed. He gets quite a bit of drainage from his ear but no vertigo. He did have some imbalance after his packing was removed. Physical examination: Male in no acute distress. Facial motion on the right is stable at 2-3/6 with the same slight synkinesis. Postauricular incision healing. He has a small blood blister at the mid-portion of the incision but no evidence of wound breakdown or infection. Ear examined under the microscope. All the packing was removed. He still has quite a bit of gelfoam within the mastoid and some ofthis was removed. After this, there is still gelfoam on the floor. He did have some vertigo with suctioning. No evidence of infection. Bacitracin was used to fill the cavity. Assessment and plan: Healing as expected. He will see Dr. Ray again in 3 weeks and I'll see him back in 6 weeks. I let him and his family know that it may take several months for the cavity to completely heal and that he will have drainage throughout this time. He will stop the ear drops for this week since there is Bacitracin in the cavity now and restart in a week. We have given him refills. He will continue dry ear precautions and is cleared from activity restrictions. P METAL COLLECTOR documented in this encounter Nursing Notes 01/06/2012 11:45 AM CST >> Lori Rg RN FriJan 06, 2012 11:47 AM Reviewed pt d/c instruction with pt, he understood. >> KAREN GIORDANO FriJan 06, 2012 11:17 AM Patient presents with: Surgical Followup - left cholesteatoma Karen Giordano POLE PEELING MACHINE OPERATOR documented in this encounter Plan of Treatment Not on filedocumented as of this encounter Procedures Procedure Name Priority Date/Time Associated Diagnosis Comme nts HC BINOCULAR MICROSCOPY Routine 01/06/2012 11:44 AM Cholesteat costa SCRAP METAL COLLECTOR documented in this encounter Visit Diagnoses Diagnosis Otorrhea - Primary Otorrhea, unspecified Cholesteatoma Cholesteatoma, unspecified documented in this encounter Care Teams Clinical Microbiologist Relationship Specialty Start Date End Date Rene Chapa PCP - General 10/01/11 documented as of this encounter
--- OUTSIDE RECORDS SUMMARY | 2021-11-07 02:41 | XMS_ITS | Encounter Summary ---
:1940 Author Organization [place] Address [address] [place] [address] Care Team Providers Name Role Phone Chapa, Rene Primary Care Provider Unavailable Reason for Visit Reason Onset Date Comments Results 02/25/2012 Encounter Details Date Type Department Care Team Description 02/25/2012 Telephone Ear, Nose and Throat Clinic Lori Rg RN Results 8th Floor, Clinic [address]A [place] [phone] Social History Tobacco Use Types Packs/Day [...] on file documented as of this encounter Miscellaneous Notes Telephone Encounter - Lori Rg RN - 02/25/2012 9:13 AM CST Ear culture form 1-9-13 negative, f/u with Dr. Ray, call for any questions-- this message lefton pt voice mail. H REPAIRER documented in this encounter Plan of Treatment Not on filedocumented as of this encounter Visit Diagnoses Not on filedocumented in this encounter Care Teams Tire Adjuster Relationship Specialty Start Date End Date Rene Chapa PCP - General 10/01/11 documented as of this encounter
--- OUTSIDE RECORDS SUMMARY | 2021-11-07 02:41 | XMS_ITS | Encounter Summary ---
:1940 Author Organization [place] Address [address] [place] [address]. [place] [address] Care Team Providers Name Role Phone Rene Chapa Primary Care Provider Unavailable Encounter Details Date Type Department Care Team Description 12/17/2011 Anesthesia Event M [facility] Joe Hector MD [facility] [address] [facility] [address] [place] [address] PeriOp Services Black Beavers MD [address] [place] [address] [address] [place] [address] Anesthesia Record Procedure Summary Procedure Name Responsible Anesthesia Start Anesthesia Stop Anesthesiologist Time Time Right Radical Dawson Hector MD 12/17/11 1219 1650 Mastoidectomy,Left Ear Exam under Anesthesia Facial Nerve Monitoring (Right Ear) Events Date Time Event Comment 12/17/2011 1107 1219 An Start 1650 An Stop Name Total clindamycin (CLEOCIN) IVPB 900 mg 900 mg Agents No agents on file. Blood No blood administrations on file. Lines, Drains, and Airways Type Details Placement Removal Incision/Surgical Site Right; Ear 12/17/11 1344 by Peripheral IV 12/17/11; 0949; 20 G; 12/17/11 0949 by 12/17/11 2018 by Left; Liz Howard Hansen, Luci lle M RN RN RETIRED ETT Airway Size: 7.5; 12/17/11 1413 by 12/17/11 1637 by Cuffed; Oral Amira, Gisselle M, endotracheal tube (MIMI CAN TOP SETTER CRN A tube ); Blade Type: Gaetano; Blade Size: 3; Place by: R. Beavers - easy mask with oral, cords clear, grade I view, ETco2+, BS=, lips and teeth unchanged. ; Insertion Attempts: 1; Secured at (cm)to lip: 24 cm; Breath Sounds: Equal, clear and bilateral; End Tidal CO2: Present; Dentition: Intact; Grade View of Cords: 1 documented in this encounter Social History [...] on file documented as of this encounter OR Notes Anesthesia Postprocedure Evaluation - Cricket Santacruz MD - 12/17/2011 5:53 PM CST Anesthesia Post-Evaluation Note Patient: Jeremiah Worthy Patient location: PACU Procedure(s) Performed: Procedure(s) with comments: MASTOIDECTOMY - Right Radical Mastoidectomy,Left Ear Exam under Anesthesia Facial Nerve Monitoring Anesthesia type: General Patient Condition Respiratory Function (RR / SpO2 / Airway Patency): Satisfactory Cardiac Function (HR / Rhythm / BP): Satisfactory Mental Status: Satisfactory Temperature: Satisfactory Pain Control: Satisfactory PONV: None Beta-Jeni Therapy: None indicated Hydration Status: Satisfactory Last Vitals: Filed Vitals: 12/17/11 1710 12/17/11 1725 12/17/11 1740 BP: 157/98 157/98 139/114 Temp: 98.6 ??F (37 ??C) Resp: 20 24 20 SpO2: 96% 96% Additional Comments: VSS. Patient is awake, responsive. Mild urinary retention. Stable. 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 Anesthesia Evaluation . Pt has had prior anesthetic. Type: General No history of anesthetic complications ROS/MED HX Pulmonary: (+) tobacco use Past use. distant past packs/day, sleep apnea uses CPAP 9-10 cmH2O, Neurologic: - neg neurologic ROS Cardiovascular: Comment: Denies any CP/SOB/LH/Dz/Syncope (+) hypertension . . Previous cardiac testing - ECG reviewed (-) pulmonary hypertension METS/Exercise Tolerance: Comment: 4+ Mets, Asymptomatic Hematologic: (+) History of Transfusion ((with GI bleed)) no previous transfusion reaction Musculoskeletal: (+) Musculoskeletal Other Hx of multiple Ortho surgeries-- incl shoulder and knee replacements GI/Hepatic: (+) GERD Asymptomatic on medication, Renal: - neg renal ROS Endo: - neg endo ROS Psychiatric: - neg psychiatric ROS Infectious Disease: - neg infectious disease ROS Other: Comment: Arshad's Esophagus Physical Exam: VS: Reviewed-- See EMR for up-to-date vital signs. Physical Exam Normal systems: cardiovascular and pulmonary Airway Mallampati: II TM distance: >3 FB Neck ROM: full Dental Comment: Intact, moderate overall dental health. Cardiovascular Rhythm and rate: regular and normal Pulmonary breath sounds clear to auscultation Lab / Radiology Results: Reviewed current labs, see EMR for details. From H+P 12/12/11: HB 15, PLT 172 K 4.3 Cr 1.04 ECG reported as NSR, CXR reported as normal as well. Studies: See EMR for current studies, reviewed when available. A&P: Anesthesia Plan ASA Score 2 . Plan for General and ETT with Intravenous and Propofol induction. Maintenance will beBalanced. Routine analgesia and antiemetics to be used for post-operative care. Anesthetic plan, risks, benefits and alternatives discussed with: patient or union contract representative. - Std ASA Mon, P-Iv x 2 (Solitario), GETA (MIMI ETT) - Anticipate Nerve Monitoring, Solitario ggt Dawson Hector MD Anesthesia Staff Physician 11:06 AM December 17, 2011 History & Physical Review History and physical reviewed; no interval change. 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 documented in this encounter Plan of Treatment Not on filedocumented as of this encounter Visit Diagnoses Not on filedocumented in this encounter Administered Medications Inactive Administered Medications - up to 3 most recent administrations Medication Order MAR Action Action Date Dose Rate Site clindamycin (CLEOCIN) IVPB 900 mg Given 12/17/2011 1:00 PM MECH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 900 mg Routine, 900 mg, Intravenous, PRE-OP/PRE-PROCEDURE, Starting on Fri12/17/11 at 0915, For 1 dose, Give first dose within 1 hour PRIOR to incision., Pre-procedure documented in this encounter Care Teams Visiting Nurse Relationship Specialty Start Date End Date Rene Chapa PCP - General 10/01/11 documented as of this encounter
--- OUTSIDE RECORDS SUMMARY | 2021-11-07 02:42 | XMS_ITS | Encounter Summary ---
:1940 Author Organization [place] Address [facility] [place] [address] Care Team Providers Name Role Phone Rene Chapa Primary Care Provider Unavailable Encounter Details Date Type Department Care Team Description 06/29/2009 Medical Correspondence [facility] Rachael Hussein [facility] MD CLINIC, PROVIDER Srvcs [address] [facility] NOTE, 06/29/[address] [place] [address] [address] [place] [phone] Social History Tobacco Use Types Packs/Day Years Used Date Never Assessed Sex Assigned at Date Recorded Not on file documented as of this encounter Plan of Treatment Not on filedocumented as of this encounter Visit Diagnoses Not on filedocumented in this encounter Care Teams Emergency Medical Service Coordinator Relationship Specialty Start Date End Date Rene Chapa PCP - General 10/01/11 documented as of this encounter
--- OUTSIDE RECORDS SUMMARY | 2021-11-07 02:42 | XMS_ITS | Encounter Summary ---
:1940 Author Organization [place] Address [facility] [place] [address] Care Team Providers Name Role Phone Rene Chapa Primary Care Provider Unavailable Encounter Details Date Type Department Care Team Description 06/08/2010 Medical Correspondence [facility] Rachael Hussein [facility] MD CLINIC, PROVIDER Srvcs [address] [facility] NOTE, 06/08/2010 [facility] [address] [phone] Social History Tobacco Use Types Packs/Day Years Used Date Never Assessed Sex Assigned at Date Recorded Not on file documented as of this encounter Plan of Treatment Not on filedocumented as of this encounter Visit Diagnoses Not on filedocumented in this encounter Care Teams Completion Manager Relationship Specialty Start Date End Date Rene Chapa PCP - General 10/01/11 documented as of this encounter
--- OUTSIDE RECORDS SUMMARY | 2021-11-07 02:42 | XMS_ITS | Encounter Summary ---
:1940 Author Care Team Providers Name Role Phone Jeremiah Duran MD Primary Care Provider [phone] Reason for Visit Nursing Visit: TOV / Fill & Pull Assessment and Plan Assessment Note Patient here for TOV 1. Retention of urine Discussion Note: None recorded.Patient educational handouts: No information available. Plan of Care Patient Instructions Patient was instructed on how to Self c ath if needed Reminders Provider Appointments Post Op 10 12/04/2021 11:00AM George Reynoso MD Lab None recorded. ? ? Referral None recorded. ? ? Procedures None recorded. ? ? Surgeries None recorded. ? ? Imaging None recorded. ? ? Medications Name Start Date ? ? Allergy Relief (fexofenadine) 180 mg tablet ? atorvastatin 40 mg tablet ? chlorhexidine gluconate 0.12 % mouthwash ? SWISH AND EXPECTORATE 15 TO 30 ML FOUR TIMES A DAY. NOTHING BY MOUTH FOR 30 MINUTES AFTER USE. ciprofloxacin 500 mg tablet ? TAKE 1 TABLET BY MOUTH TWICE DAILY FOR 7 DAYS clindamycin HCl 300 mg capsule ? TAKE ONE CAPSULE BY MOUTH FOUR TIMES DAILY UNTIL GONE furosemide 20 mg tablet ? hydrocodone 5 mg-acetaminophen 325 mg tablet ? TAKE 1 TABLET BY MOUTH EVERY 4-6 HOURS NEEDED FOR FOR PAIN THAT IS NOT RELIEVED WITH NSAIDS Imbruvica 140 mg capsule ? omeprazole 20 mg capsule,delayed release ? potassium chloride ER 10 mEq tablet,extended release(p art/cryst) ? sulfamethoxazole 800 mg-trimethoprim 160 mg tablet ? TAKE 1 TABLET BY MOUTH TWICE DAILY FOR 7 DAYS tamsulosin 0.4 mg capsule ? TAKE 1 CAPSULE BY MOUTH EVERY DAY DIRECTED tolterodine ER 4 mg capsule,extended release 24 hr ? tramadol 50 mg tablet ? TAKE 1 TABLET BY MOUTH EVERY 6 HOURS NEEDED FOR SE BRENDA PAIN Medications Administered None recorded. Vitals None recorded. Results Lab Results None recorded. Allergies Code Code System Name Reaction Severity Onset Penicillins Anaphylaxis ? ? 57318 RxNorm Percocet ? ? ? Notes: ASA- GI BLEED ASA-ACETAMINOPHEN- GI BLEED Problems Name Status Onset Date Source ? Retention of Urine Active 02/04/2014 History Procedures Date Name Performed by ? ? Cataract Surgery Information not avai lable ? Hernia Repair Information not avai lable ? Orthopedic Surgery Information not avai lable ? Prostate Surgery Information not avai lable Notes: GREEN LIGHT LASER TURP ? Vasectomy Information not avai lable Vaccine List None recorded. Social History Tobacco Smoking Status Former Smoker Has tobacco cessation counseling been provided? N Could you be ? N Preferred Language Vincentian What was the date of your most recent tobacco 09/05/2021 screening? Do you use any illicit or recreational drugs? N When did you quit smoking? 16+yearssincelastcigarette What is your relationship status? What is your level of alcohol consumption? Occasional What is your level of caffeine consumption? Heavy Do you or have you ever used any other forms of N tobacco or nicotine? Race WHITE Recreational Drug Use N Family History Relation Problem Onset Age of Age Notes Father No current problems or (No Information) N/A ( No Notes) disability Mother No current problems or (No Information) N/A ( No Notes) disability Functional Status Unknown. Past Encounters 09/21/2021 Retention of Urine George Reynoso MD: [address] [place] [address], Ph. 09/17/2021 George Reynoso MD: [address] [place] [address], Ph. 09/05/2021 Benign Prostatic Hyperplasia with Outflo w Obstruction George Reynoso MD: [address] [place] [address], Ph. 08/22/2021 Kidney Stone George Reynoso MD: [address] [place] [address], Ph. History of Present Illness None recorded. Review of Systems None recorded. Physical Exam None recorded.
--- OUTSIDE RECORDS SUMMARY | 2021-11-07 02:42 | XMS_ITS | Encounter Summary ---
:1940 Author Organization [place] Address [facility] [place] [address] Care Team Providers Name Role Phone Rene Chapa Primary Care Provider Unavailable Encounter Details Date Type Department Care Team Description 06/09/2009 Medical Correspondence [facility] Rachael Hussein [facility] MD CLINIC, PROVIDER Srvcs [address] [facility] NOTE, 06/09/2009 [facility] [address] [id number] Social History Tobacco Use Types Packs/Day Years Used Date Never Assessed Sex Assigned at Date Recorded Not on file documented as of this encounter Plan of Treatment Not on filedocumented as of this encounter Visit Diagnoses Not on filedocumented in this encounter Care Teams Economics Professor Relationship Specialty Start Date End Date Rene Chapa PCP - General 10/01/11 documented as of this encounter
--- OUTSIDE RECORDS SUMMARY | 2021-11-07 02:42 | XMS_ITS | Encounter Summary ---
:1940 Author Organization [place] Address [address] [place] [address]. [place] [address] Care Team Providers Name Role Phone Rene Chapa Primary Care Provider Unavailable Encounter Details Date Type Department Care Team Description 06/29/2009 Medical Correspondence [facility] Rachael Hussein , [facility] & Health Info [facility] MD CLINIC, Srvcs [address] [facility], [address] [facility] 396 06/29/2009 [place] [phone] Social History Tobacco Use Types Packs/Day Years Used Date Never Assessed Sex Assigned at Date Recorded Not on file documented as of this encounter Plan of Treatment Not on filedocumented as of this encounter Visit Diagnoses Not on filedocumented in this encounter Care Teams Coffee Host Relationship Specialty Start Date End Date Rene Chapa PCP - General 10/01/11 documented as of this encounter
--- OUTSIDE RECORDS SUMMARY | 2021-11-07 02:42 | XMS_ITS | Encounter Summary ---
:1940 Author Organization [place] Address [address] [place] [address] Care Team Providers Name Role Phone Rene Chapa Primary Care Provider Unavailable Reason for Visit Reason Onset Date Comments Consult 10/01/2011 Encounter Details Date Type Department Care Team Description 10/01/2011 PRE VISIT Ear, Nose and Throat Clinic Rachael Hussein MD Consult 8th Floor, Clinic 8A [address] [facility] [address] [place] [address] [place] [phone] Social History Tobacco Use Types Packs/Day Years Used Date Never Assessed Sex Assigned at Date Recorded Not on file documented as of this encounter Miscellaneous Notes Telephone Encounter - Kilo Vidal - 10/01/2011 4:52 PM CDT ENT PRE VISIT NOTE On the phone call: Date of Call: October 01, 2011 Date of appointment: Nov 06, 2011 Reason for Call (Should match scheduling appointment note): 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 (Name, address, phone number, location of clinic) Dr. Ilya Ray Where have you been seen for this condition? [facility] Where and what testing has been done including: None ENT related surgeries in the past: No After the phone call: Request medical records: YES -- From where: [facility] What date: 10/01/11 Who did you speak to: [facility]oro Is the information already in the EMR? No Pre visit call: Pt had a right sudden hearing loss about 10 years ago, never found a cause- as had mastoid surgery at [facility] about 2 years ago at [facility]. Pt just had a audio at [facility] 10-24-11-- will ask to have this faxed to us---- Lori Rg RN documented in this encounter Plan of Treatment Not on filedocumented as of this encounter Visit Diagnoses Not on filedocumented in this encounter Care Teams Pot Maker Relationship Specialty Start Date End Date Rene Chapa PCP - General 10/01/11 documented as of this encounter
--- OUTSIDE RECORDS SUMMARY | 2021-11-07 02:42 | XMS_ITS | Encounter Summary ---
:1940 Author Organization [place] Address [address] [place] [address]. [place] [address] Care Team Providers Name Role Phone Rene Chapa Primary Care Provider Unavailable Encounter Details Date Type Department Care Team Description 10/09/2011 Medical Correspondence [facility] Rachael Hussein , CONSULTING [employer] [facility], [place] Srvcs [address] [place] [address] HEAD, 10/09/[address] [place] [phone] Social History Tobacco Use Types Packs/Day Years Used Date Never Assessed Sex Assigned at Date Recorded Not on file documented as of this encounter Plan of Treatment Not on filedocumented as of this encounter Visit Diagnoses Not on filedocumented in this encounter Care Teams Childcare Provider Relationship Specialty Start Date End Date Rene Chapa PCP - General 10/01/11 documented as of this encounter
--- OUTSIDE RECORDS SUMMARY | 2021-11-07 02:42 | XMS_ITS | Clinical Summary ---
:1940 Author Organization [facility] [place] [address] Care Team Providers Name Role Phone Anatoly Haas MD Unavailable Jackelin Rausch Unavailable [phone] Curt Porras Unavailable Jeremiah Duran MD Primary Care Provider [phone] Allergies Active Allergy Reactions Severity Noted Date Comments Qxy-Xmfhztgjgoayd-Zqlhyth-Caff GI Bleeding 01/20/2007 Aspirin GI Bleeding 01/21/2007 Penicillins Anaphylaxis 8 YO Oxycodone-Acetaminophen Nausea Only 04/02/2010 Carringtone rated Vicodin Medications Medication Sig Dispensed Refills Start Date End Date Status IMBRUVICA 420 mg tab 0 10/21/2018 Active CPAPIndications: YAJAIRA CPAP machine for 1 Device 11 01/05/2020 Active (obstructive sleep home use at apnea) pressure 10 cm/H2O, nasal mask x1/3month with nasal cushion x2/mo fexofenadine Take 180 mg by 90 tablet. 2 03/08/2021 Active (Lorri) 180 mg mouth once daily. tabletIndications: Allergy, sequela atorvastatin Take 1 Tablet (40 90 Tablet 2 03/08/2021 Active (LIPITOR) 40 mg mg) by mouth once tabletIndications: daily. Mixed hyperlipidemia omeprazole Take 1 Capsule (20 90 Capsule 2 03/08/2021 Active (PRILOSEC) 20 mg mg) by mouth once Delayed-Release daily before a capsuleIndications: meal. 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 Bilateral lower extremity edema potassium chloride Take 1 Tablet (10 90 Tablet 2 03/08/2021 Active (K-DUR, KLOR-CON mEq) by mouth once M10) 10 mEq daily with a meal. tabletIndications: Bilateral lower extremity edema HYDROcodone-acetamin Take 1-2 Tablets by 20 tablet. 0 03/29/19 Active ophen (NORCO) 5-325 mouth 3 times daily mg per if needed for Pain. tabletIndications: Max acetaminophen Chest wall pain dose: 4000 mg in 24 hrs. Active Problems Problem Noted Date Stage 3a chronic kidney disease 03/29/2021 CLL (chronic lymphocytic leukemia) 02/17/2019 Bilateral lower extremity edema 02/17/2019 YAJAIRA 06/23/2000 AHI-9 11/06/2018 Urinary urgency 08/19/2016 Status post Fei fundoplication (without gastrostomy tube) procedure 04/26/2016 Impaired fasting glucose 09/08/2014 Adenomatous colon polyp 05/24/2013 Overview: Colonoscopy 05/2013 polyps repeat in 5 ye ars Colonoscopy 09/2018 normal, no follow up needed Risk for falls 07/29/2012 Overview: S/P ear surgery: balance is compromised, especially with rapid postural changes. 07/29/2012 ACP (advance care planning) 01/31/2011 Overview: Discussed; will bring in a copy. 011 Elevated prostate specific antigen (PSA) 01/31/2011 Mixed hearing loss, bilateral 01/21/2007 Overview: Bilateral: chronic Esophageal reflux 09/18/2006 Mixed hyperlipidemia 09/18/2006 Resolved Problems Problem Noted Date Resolved Date Lymphocytosis 01/08/2012 2019 Overview: B Cell Lymphocytosis. 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 Josesito pastor, [facility]); Immunization/In jection; Immunization/In jection (COVID-19 vacci ne) 10/24/2021 Travel 10/22/2021 Telephone Jeremiah Duran Que stions ( Patient has MD question about his upcoming preop appointme nt, whether he needs some b lood test.) 09/04/2021 Orders Only Lab, [place] Outside Order ( Dr. Sayra Polk) 09/04/2021 Travel 08/22/2021 Orders Only Scanner <No scans attac hed> from Last 3 Months Immunizations Name Administration Dates Next Due COVID-19 vaccine ([employer]Media-Kiviv[employer]ch 10/24/2021 30mcg/0.3mL) 12YO+ BIVALENT BOOSTER PF, MDV COVID-19 vaccine ([employer]-BioNTech 05/29/2021 30mcg/0.3mL) 12YO+ MARIANNA-SUCROSE PF, MDV COVID-19 vaccine ([employer] Technology[employer]NTech 10/30/2020, 04/11/2020, 30mcg/0.3mL) PF, MDV Influenza, High-dose Inactivated 11/09/2018, 11/06/2017, , 11/01/2015, 10/19/2014, 10/25/2013, 11/01/2012 Influenza, High-dose Quadrivalent 11/07/2020 Inactivated Influenza, IIV3 (Age 6-35 mos) 10/12/2019, 10/25/2009 Influenza, IIV3 (Age >=3 years) 11/10/2012, 10/23/2011, 10/11, 10/22/2010, 10/25/2009, 11/01/2008, 11/30/2007, 11/19/2006, 11/15/2005, 12/19/2004, 11/23/2002 Influenza, Inactivated AIIV4 (Age 65+ 10/24/2021 Years) Preserv Free Pneumococcal Poly,23-Valent 01/29/2013, 10/29/2005 (Pneumovax) Pneumococcal conj 13-Valent (Prevnar 01/14/2014 13) Td (Age >=7 Years) 09/29/2001 Tdap 01/31/2011 Zoster (Shingrix-RZV, recombinant) 12/01/2018, 09/30/2018 Zoster (Zostavax-ZVL, live) 08/19/2007 Family History Medical History Relation Name Comments Other Brother 2 Ray Increased PSA: t aking med 01/2011 Cancer Father Rio Lung Cancer-colon Neg. 1 Cancer-prostate Neg. 2 Anesthesia Problem Neg. 3 Blood Disease No Family History Relation Name Status Comments Brother 1 Holger (Age 65) DVT/ Pulm Embo llus Brother 2 Ray Alive Father Rio (Age 60) Lung Ca Mother Cynthia (Age 96) Lived on her o wn until 94! Neg. 1 Neg. 2 Neg. 3 Sister 1 Henny Alive Sister 2 Isauro Alive Social History Tobacco Use Types Packs/Day Years Used Date Former Smoker 1 7.5 Quit: 02/03/19 70 Smokeless Tobacco: Never Used Tobacco Cessation: Counseling Given: Yes Alcohol Use Standard Drinks/Week Comments Yes 0 (1 standard drink = 0.6 oz pure alcoho l) rare, 1 drink every month Alcohol Habits Answer Date Recorded How often do you have a drink containing Monthly or less 04/30/2018 alcohol? How many drinks containing alcohol do you 1 or 2 04/30/2018 have on a typical day when you are drinking? How often do you have six or more drinks on Never 04/30/2018 one occasion? Comment: rare, 1 drink every month 07/31/2017 Sex Assigned at Date Recorded Not on file COVID-19 Exposure Response Date Recorded In the last 10 days, have you been in contact with No / Unsu re 10/24/2021 9:37 AM CDT someone who was confirmed or suspected to have Coronavirus/COVID-19? Obstetrics History Last Filed Vital Signs Vital Sign Reading Time Taken Comments Blood Pressure 131/71 10/24/2021 9:44 AM CDT Pulse 75 10/24/2021 9:44 AM CDT Temperature 37.1 ??C (98.7 ??F) 2019 1:18 PM CDT Respiratory Rate 16 11/02/2019 11:43 AM CDT Oxygen Saturation 97% 10/24/2021 9:44 AM CDT Inhaled Oxygen Concentration - - Weight 118.5 kg (261 lb 3.2 oz) 10/24/2021 9:44 AM CDT Height 176.1 cm (5' 9.33) 10/24/2021 9:44 AM CDT Body Mass Index 38.21 10/24/2021 9:44 AM CDT Plan of Treatment Health Maintenance Due Date Last Done Comments Tetanus booster 01/31/2021 01/31/2011, 09/29/2001 Depression screening for age 12+ 11/14/2021 11/14/2020, 02/2019, 10/12/2019, Additional history exists Medicare Wellness for age 65+ 11/14/2021 11/14/2020, 2019, 04/30/2018, Additional history exists COVID-19 vaccine series (5 - 02/23/2022 10/24/2021, 022, Booster for Pfizer series) 10/30/2020, Additiona l history exists BMI (ht and wt on same day) for 10/24/2022 10/24/2021, 10/0 06/2020, age 18+ 01/05/2020, Additional history exists Tdap Completed 01/31/2011 Pneumococcal series for age 65+ Completed 01/14/2014, 01/11, 10/29/2005 Zoster (shingles) series for age Completed 12/01/2018, , 50+ 08/19/2007 Influenza for age 65+ Completed 10/24/2021, 11/07/2020, 11/09/2018, Additional history exists Medical Devices Implanted Type Area Bulk Sealer Operator Device Shelf Model / Identifier Expiration Date Ser ial / Lot [id number] - [id number] Bilateral: 2 [id number] / Implanted: Qty: 2 on 07/31/2017 by Anatoly Munoz MD at [facility] Ear / [id number] Description: BEHIND EAR BRENDA 400 IMPLANT 4MM W ABUTMENT 12MM Procedures Procedure Name Priority Date/Time Associated Diagnosis Comme nts NE READING EKG - NO Routine 10/26/2021 1:33 PM Screening for h eart CHARGE, COMP ONLY CDT disease EKG 12 LEAD Routine 10/26/2021 1:33 PM Screening for heart CDT disease RED CELL MORPHOLOGY Routine 10/24/2021 10:31 Preop examination Results for this AM CDT procedure are i n the results section. PLATELET ESTIMATE Routine 10/24/2021 10:31 Preop examination R esults for this AM CDT procedure are i n the results section. MANUAL DIFFERENTIAL Routine 10/24/2021 10:31 Preop examination Results for this AM CDT procedure are i n the results section. CBC WITH AUTO Routine 10/24/2021 10:31 Preop examination Resul ts for this DIFFERENTIAL AM CDT procedure are i n the results section. BASIC METABOLIC PANEL Routine 10/24/2021 10:31 Preop examinati on Results for this AM CDT procedure are i n the results section. CBC WITH AUTO Routine 10/24/2021 10:31 Preop examination Resul ts for this DIFFERENTIAL AM CDT procedure are i n the results section. CBC WITH AUTO Routine 09/04/2021 10:02 CLL (chronic Results fo r this DIFFERENTIAL AM CDT lymphocytic procedure are i n leukemia) (HC) the results section. CBC WITH AUTO Routine 09/04/2021 10:02 CLL (chronic Results fo r this DIFFERENTIAL AM CDT lymphocytic procedure are i n leukemia) (HC) the results section. COMP METABOLIC PANEL Routine 09/04/2021 10:02 CLL (chronic Res ults for this AM CDT lymphocytic procedure are i n leukemia) (HC) the results section. LD,TOTAL Routine 09/04/2021 10:02 CLL (chronic Results for this AM CDT lymphocytic procedure are i n leukemia) () the results section. SCAN-OPERATIVE/PROCED 08/22/2021 12:00 Re sults for this URE REPORT AM CDT procedure are i n the results section. from Last 3 Months Results EKG 12 LEAD (10/26/2021 1:33 PM CDT) Narrative This result has an attachment that is no t available. Jeremiah Duran MD EKG ORD NE READING EKG - NO CHARGE, COMP ONLY (10/26/2021 1:33 PM CDT) Jeremiah Duran MD PB - PROVIDER READINGS (ABNORMAL) CBC WITH AUTO DIFFERENTIAL (10/24/2021 10:31 AM CDT)Only the most recent of2 resultswithin the time period is included. [facility] Method Time Signature WHITE BLOOD 9.7 4.5 - 11.0 10/24/2021 [facility] COUNT thou/cu mm 11:23 AM [facility] RED BLOOD COUNT 4.44 4.30 - 10/24/2021 [facility] 5.90 11:23 AM [facility] mil/cu mm [facility] HEMOGLOBIN 10.7 (L) 13.5 - 10/24/2021 [facility] 17.5 g/dL 11:23 AM [facility] HEMATOCRIT 34.9 (L) 37.0 - 10/24/2021 [facility] 53.0 % 11:23 AM [facility] MCV 79 (L) 80 - 100 10/24/2021 [facility] 11:23 AM [facility] MCH 24.1 (L) 26.0 - 10/24/2021 [facility] 34.0 pg 11:23 AM [facility] MCHC 30.7 (L) 32.0 - 10/24/2021 [facility] 36.0 g/dL 11:23 AM [facility] RDW 16.6 (H) 11.5 - 10/24/2021 [facility] 15.5 % 11:23 AM [facility] PLATELET COUNT 255 140 - 440 [facility] MPV 9.3 6.5 - 11.0 10/24/2021 [facility] 11:23 AM [facility] Specimen Anatomical Collection Method / Collection Time Recei alissa Time (Source) Location / Volume Laterality Blood BLOOD SPECIMEN / Venipuncture / 10/24/2021 10:31 10/24 Unknown Unknown AM CDT 10:31 AM CDT Jeremiah Duran MD HEMATOLOGY Performing Organization Address City/[facility]/ZIP Code Phon e Number [facility] [address] [place] [address] RED CELL MORPHOLOGY (10/24/2021 10:31 AM CDT) [facility] Method Time Signature RBC COMMENT RBC RBC 10/24/2021 [facility] morphology morphology 11:23 AM [facility] normal normal, RBC morphology within normal limits for newborns. Specimen Anatomical Collection Method / Collection Time Recei alissa Time (Source) Location / Volume Laterality Blood BLOOD SPECIMEN / Venipuncture / 10/24/2021 10:31 10/24 Unknown Unknown AM CDT 10:31 AM CDT Jeremiah Duran MD HEMATOLOGY Performing Organization Address City/[facility]/ZIP Code Phon e Number [facility] [address] [place] [address] PLATELET ESTIMATE (10/24/2021 10:31 AM CDT) [facility] Method Time Signature PLATELET Adequate Adequate, No 10/24/2021 [facility] ESTIMATE estimate 11:23 AM T [facility] Specimen Anatomical Collection Method / Collection Time Recei alissa Time (Source) Location / Volume Laterality Blood BLOOD SPECIMEN / Venipuncture / 10/24/2021 10:31 10/24 Unknown Unknown AM CDT 10:31 AM CDT Jeremiah Duran MD HEMATOLOGY Performing Organization Address City/[facility]/ZIP Code Phon e Number [facility] [address] [place] [address] (ABNORMAL) MANUAL DIFFERENTIAL (10/24/2021 10:31 AM CDT) [facility] Method Time Signature % NEUTROPHILS 56.0 % 10/24/2021 [facility] 11:23 AM T [facility] % LYMPHOCYTES 35.0 % 10/24/2021 [facility] 11:23 AM T [facility] % MONOCYTES 8.0 % 10/24/2021 [facility] 11:23 AM T [facility] % EOSINOPHILS 1.0 % 10/24/2021 [facility] 11:23 AM CDT [facility] % BASOPHILS 0.0 % 10/24/2021 [facility] 11:23 AM CDT [facility] NEUTROPHILS 5.4 1.7 - 7.0 10/24/2021 [facility] ABSOLUTE thou/cu mm 11:23 AM T [facility] LYMPHOCYTES 3.4 (H) 0.9 - 2.9 10/24/2021 [facility] ABSOLUTE thou/cu mm 11:23 AM CDT [facility] MONOCYTES 0.8 <0.9 10/24/2021 [facility] ABSOLUTE thou/cu mm 11:23 AM CDT [facility] EOSINOPHILS 0.1 <0.5 10/24/2021 [facility] ABSOLUTE thou/cu mm 11:23 AM T [facility] BASOPHILS 0.0 <0.3 10/24/2021 [facility] ABSOLUTE thou/cu mm 11:23 AM T [facility] Specimen Anatomical Collection Method / Collection Time Recei alissa Time (Source) Location / Volume Laterality Blood BLOOD SPECIMEN / Venipuncture / 10/24/2021 10:31 10/24 Unknown Unknown AM CDT 10:31 AM CDT Jeremiah Duran MD HEMATOLOGY Performing Organization Address City/State/ZIP Code Phon e Number [facility] [address] [place] [address] (ABNORMAL) BASIC METABOLIC PANEL (10/24/2021 10:31 AM CDT) [facility] Method Time Signature SODIUM 141 135 - 145 10/24/2021 [facility] mmol/L 6:30 PM CDT [facility] POTASSIUM 4.1 3.5 - 5.0 10/24/2021 [facility] mmol/L 6:30 PM CDT [facility] CHLORIDE 109 98 - 110 10/24/2021 [facility] mmol/L 6:30 PM CDT [facility] CO2,TOTAL 23 21 - 31 10/24/2021 [facility] mmol/L 6:30 PM CDT [facility] ANION GAP 9 5 - 18 10/24/2021 [facility] 6:30 PM CDT [facility] GLUCOSE 98 65 - 100 10/24/2021 [facility] mg/dL 6:30 PM CDT [facility] CALCIUM 9.0 8.5 - 10.5 10/24/2021 [facility] mg/dL 6:30 PM CDT [facility] BUN 19 8 - 25 10/24/2021 [facility] mg/dL 6:30 PM CDT [facility] CREATININE 1.46 (H) 0.72 - 10/24/2021 [facility] 1.25 mg/dL 6:30 PM CDT [facility] BUN/CREAT RATIO 13 10 - 20 10/24/2021 [facility] 6:30 PM CDT [facility] eGFR 48 (L) >90 10/24/2021 [facility] mL/min/1.7 6:30 PM CDT [facility] 3m2 TRAL LABORATORY Comment: As of 2021, eGFR is calcu lated by the CKD-EPI creatinine equation without race adjustment. eGFR can be inf luenced by muscle mass, exercise, and diet. The reported eGFR is an estimation only and is only applicable if the renal function is stable. Specimen Anatomical Collection Method / Collection Time Recei alissa Time (Source) Location / Volume Laterality Blood BLOOD SPECIMEN / Venipuncture / 10/24/2021 10:31 10/24 Unknown Unknown AM CDT 10:31 AM CDT Jeremiah Duran MD CHEMISTRY Performing Organization Address City/State/ZIP Code Phon e Number [facility] [address] [place] [address] [facility] 2000 LABORATORY LD,TOTAL (09/04/2021 10:02 AM CDT) P athologist Signature LD,TOTAL 147 125 - 220 09/04/2021 [facility] Ratings IU/L 6:02 PM CDT [facility] LABORATORY Specimen Anatomical Collection Method / Collection Time Recei alissa Time (Source) Location / Volume Laterality Blood BLOOD SPECIMEN / Venipuncture / 09/04/2021 10:02 09/04 Unknown Unknown AM CDT 10:03 AM CDT Jeremiah Duran MD CHEMISTRY Performing Organization Address City/State/ZIP Code Phon e Number [facility] [address] [place] [address] [facility] 2000 LABORATORY (ABNORMAL) COMP METABOLIC PANEL (09/04/2021 10:02 AM CDT) [facility] Method Time Signature SODIUM 141 135 - 145 09/04/2021 [facility] mmol/L 6:05 PM CDT [facility] POTASSIUM 4.1 3.5 - 5.0 09/04/2021 [facility] mmol/L 6:05 PM CDT [facility] CHLORIDE 108 98 - 110 09/04/2021 [facility] mmol/L 6:05 PM CDT [facility] CO2,TOTAL 23 21 - 31 09/04/2021 [facility] mmol/L 6:05 PM CDT [facility] ANION GAP 10 5 - 18 09/04/2021 [facility] 6:05 PM CDT [facility] GLUCOSE 100 65 - 100 09/04/2021 [facility] mg/dL 6:05 PM CDT [facility] CALCIUM 9.1 8.5 - 09/04/2021 [facility] 10.5 6:05 PM CDT [facility] mg/dL TRAL LABORATORY BUN 19 8 - 25 09/04/2021 [facility] mg/dL 6:05 PM CDT [facility] CREATININE 1.35 (H) 0.72 - 09/04/2021 [facility] 1.25 6:05 PM CDT LAB[facility] mg/dL TRAL LABORATORY BUN/CREAT RATIO 14 10 - 20 09/04/2021 [facility] 6:05 PM CDT [facility] ALBUMIN 3.9 3.2 - 4.6 09/04/2021 [facility] g/dL 6:05 PM CDT [facility] PROTEIN,TOTAL 6.2 6.0 - 8.0 09/04/2021 [facility] g/dL 6:05 PM CDT [facility] GLOBULIN 2.3 2.0 - 3.7 09/04/2021 [facility] g/dL 6:05 PM CDT [facility] A/G RATIO 1.7 1.0 - 2.0 09/04/2021 [facility] 6:05 PM CDT [facility] BILIRUBIN,TOTAL 0.7 0.2 - 1.2 09/04/2021 [facility] mg/dL 6:05 PM CDT [facility] ALK PHOSPHATASE 93 50 - 136 09/04/2021 [facility] IU/L 6:05 PM CDT [facility] ALT (SGPT) 13 8 - 45 09/04/2021 [facility] IU/L 6:05 PM CDT [facility] AST (SGOT) 16 2 - 40 09/04/2021 [facility] IU/L 6:05 PM CDT [facility] eGFR 53 (L) >90 09/04/2021 [facility] mL/min/1. 6:05 PM CDT [facility] 73m2 TRAL LABORATORY Comment: As of 2021, eGFR is calcu lated by the CKD-EPI creatinine equation without race adjustment. eGFR can be inf luenced by muscle mass, exercise, and diet. The reported eGFR is an estimation only and is only applicable if the renal function is stable. Specimen Anatomical Collection Method / Collection Time Recei alissa Time (Source) Location / Volume Laterality Blood BLOOD SPECIMEN / Venipuncture / 09/04/2021 10:02 09/04 Unknown Unknown AM CDT 10:03 AM CDT Jeremiah Duran MD CHEMISTRY Performing Organization Address City/State/ZIP Code Phon e Number [facility] [address] [place] [address] LAB[facility]ATORY[facility] 2000 LABORATORY SCAN-OPERATIVE/PROCEDURE REPORT (08/22/2021 12:00 AM CDT) Narrative This result has an attachment that is no t available. Scanner OTHER from Last 3 Months Insurance Payer Benefit Plan / Subscriber ID Effective Dates Phone Addre ss Type Group MEDICARE PART B MEDICARE PART B [id number] 2006-Presen ATTN: CLAIMS - HB USE ONLY HB ONLY t [address] 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 FOR [facility] IELD, 02/23/2009 Healthcare Directive 10/02/2011 12:00 AM ADVANCE DIRECTIVE Latest Code Status on File Code Status Date Activated Date Inactivated Comments Full Code 01/21/2014 9:44 AM 01/21/2014 4:49 PM Care Teams Crucible Packer Relationship Specialty Start Date End Date Jeremiah Duran MD PCP - General Family Practice 10/06/12 [place] [address] Anatoly Haas MD Surgery - Orthopedics 01/31/11 Jackelin Rausch AuD Provider Audiology 10/17/11 Curt Porras Flag Car Driver 01/29/[address] [place] [id number]
--- OUTSIDE RECORDS SUMMARY | 2021-11-07 02:42 | XMS_ITS | Encounter Summary ---
:1940 Author Organization [facility] Address [facility] [place] [address] Care Team Providers Name Role Phone Rene Chapa Primary Care Provider Unavailable Encounter Details Date Type Department Care Team Description 2011 Medical Correspondence [facility] Rachael Hussein [facility] MD CLINIC, PROVIDER Srvcs [address] [facility] NOTE,[address] [place] [phone] [id number] Social History Tobacco Use Types Packs/Day Years Used Date Never Assessed Sex Assigned at Date Recorded Not on file documented as of this encounter Plan of Treatment Not on filedocumented as of this encounter Visit Diagnoses Not on filedocumented in this encounter Care Teams Clinical Manager Relationship Specialty Start Date End Date Rene Chapa PCP - General 10/01/11 documented as of this encounter
--- OUTSIDE RECORDS SUMMARY | 2021-11-07 02:42 | XMS_ITS | Encounter Summary ---
:1940 Author Care Team Providers Name Role Phone Jeremiah Duran MD Primary Care Provider [phone] Reason for Visit Microscopic Hematuria Assessment and Plan Assessment Note 80 Y/O MALE, SEEN FOR MICROSCOPIC HEMAT URIA. CT. SHOWED NON OBSTRUCTING,RT , 4MM STONE . ALSPO HX BPH ,LASER TURP [address] BERNARDO. U/A POS BLOOD. CYSTO- RESIDUAL FRIABLE PROSTATIC ADENOMA,DISTAL STRICTURE REVIEWED RECORDS,LABS INTERVIEW WITH DAUGHTER PRESENT ORDERED, REVIEWED U/A,CYSTO PLAN FLOMAX 0.4 MG DAY.RTC 3 MO. PVR U/A 1. Kidney stone ? urinalysis, dipstick ? tamsulosin 0.4 mg capsule Discussion Note: None recorded.Patient educational handouts: No information available. Plan of Care Reminders Provider Appointments Post Op 10 12/04/2021 11:00AM George Reynoso MD Lab Urinalysis, Dipstick 08/22/2021 ? Referral None recorded. ? ? Procedures [...] 1 CAPSULE BY MOUTH EVERY DAY DIRECTED yenodine ER 4 mg capsule,extended release 24 hr ? tramadol 50 mg tablet ? TAKE 1 TABLET BY MOUTH EVERY 6 HOURS NEEDED FOR SE BRENDA PAIN Medications Administered None recorded. Vitals Height Weight BMI 5 ft 10 in 260 lbs 37.3 kg/m2 Results Lab Results Date Name Specimen Result Interpretation Description Value Range Status Address ? 08/22/2021 Urinalysis, Dipstick ? Color-Status Yellow ? Clarity-Status Clear ? Glucose-Status Negative ? Bilirubin-Status Negative ? Ketones-Status Negative ? Sp [place]-Status 1.020 ? pH-Status 6.5 ? Urobilinogen-Status 1.0 ? Nitrates-Status negative ? Blood-Status Large ? Leuko-Status Negative ? Specimen Type Voided ? ? Allergies Code Code System Name Reaction Severity Onset Penicillins Anaphylaxis ? ? 88148 RxNorm Percocet ? ? ? Notes: ASA- [...] Social History Tobacco Smoking Status Former Smoker What is your level of alcohol consumption? Occasional Has tobacco cessation counseling been provided? N Could you be ? N Preferred Language Japanese What was the date of your most recent tobacco 09/05/2021 screening? Do you or have you ever used any other forms of N tobacco or nicotine? What is your level of caffeine consumption? Heavy Do you use any illicit or recreational drugs? N When did you quit smoking? 17+yearssincelastcigarette Race WHITE Recreational Drug Use N What is your relationship status? Family History Relation Problem Onset Age of Age Notes Father No current problems or (No Information) N/A ( No Notes) disability Mother No current problems or (No Information) N/A ( No Notes) disability Functional Status Unknown. Past Encounters 08/22/2021 Kidney Stone George Reynoso MD: [address] [place] [address], Ph. History of Present Illness Note: <div>80 YOM, REFERRED TODAY FOR MICROSCOPIC HEMATURIA. 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 FORMER SMOKER. HE TAKES IMBRUVICA FOR CLL. DR BERNARDO DID A GREENLIGHT LASER 10 YRS AGO. . INTERMITTENT FLOW.u/a large blood. </div> Review of Systems ? Comprehensive General Adult ROS Reported By: Patient Constitutional: Constitutional: no fever, no chills Eyes: Eyes: no dry eyes, no vision change, no irritation Endocrine: Endocrine: no fatigue, no in creased thirst Cardiovascular: Cardiovascular: no chest vince n, no palpitations Integumentary: Skin: no rashes, no change i n skin color Respiratory: Respiratory: no wheezing, no cough, no shortness of breath Gastrointestinal: Gastrointestinal: no abdomin al pain, no nausea, no vomiting, no constipation, no GERD Musculoskeletal: Musculoskeletal: no neck vince n, no back pain Neurologic: Neurologic: no tremor, no di zziness, no numbness, no headaches Genitourinary: Genitourinary: no incontinen ce, no difficulty urinating ENMT: Ears: no ear pain. Mouth/Thr oat: no sore throat Allergic/Immunologic: Allergy/Immunologic: no itch ing, no hives Hematologic/Lymphatic: Hematologic/Lymphatic no swo llen glands, no excessive bleeding Psychiatric: Psych: no hallucinations, (n ormal) sleep disturbances: mismatch of sleep / wake kelby edule with lifestyle needs Physical Exam ? Brief Exam Reported By: Patient Male : Penis: no lesions, no discha rge. Scrotum: no swelling, no tenderness. Testes: palpable bilaterally , not enlarged. Prostate: symmetrical, not enlarged, non-tender, smooth / no nodules; CYSTO PERFORMED
--- OUTSIDE RECORDS SUMMARY | 2021-11-07 02:42 | XMS_ITS | Encounter Summary ---
:1940 Author Care Team Providers Name Role Phone Jeremiah Duran MD Primary Care Provider [phone] Reason for Visit None recorded. Assessment and Plan None recorded.Discussion Note: None recorded.Patient educational handouts: No information [...] Reaction Severity Onset Penicillins Anaphylaxis ? ? 74075 RxNorm Percocet ? ? ? Notes: ASA- [...] Could you be ? N Preferred Language Tanzanian What was the date of your most [...] Notes) disability Functional Status Unknown. Past Encounters 09/17/2021 George Reynoso MD: [address] [place] [address], Ph. 09/05/2021 Benign Prostatic Hyperplasia with Outflo w Obstruction George Reynoso MD: [address] [place] [address], Ph. 08/22/2021 Kidney Stone George Reynoso MD: [address] [place] [address], Ph. History of Present Illness None recorded. Review of Systems None recorded. Physical Exam None recorded.
--- OUTSIDE RECORDS SUMMARY | 2021-11-07 02:42 | XMS_ITS | Encounter Summary ---
:1940 Author Organization [place] Address Formerly [facility], [id number] [facility] [place] [address] Care Team Providers Name Role Phone Rene Chapa Primary Care Provider Unavailable Reason for Visit Auth/Cert - Closed Specialty Diagnoses / Procedures Referred By Contact Refer red To Contact Surgery Diagnoses cholesteatoma Uu Periop Procedures MASTOIDECTOMY [address] [place] [address] Phone: Fax: Referral ID Status Reason Start Date Expiration Date Visits Requ ested Visits Authorized [id number] Closed 1 1 Encounter Details Date Type Department Care Team Description 12/17/2011 Hospital Encounter [facility] Hawk Varghese, Ch olesteatoma [facility] Same Day MD (Primary Dx) Surgery [place] [facility] [address] [place] [address] [place], [place] [phone] [id number] Social History Tobacco Use Types Packs/Day Years [...] Sign Reading Time Taken Comments Blood Pressure 138/72 12/17/2011 7:30 PM FABRICATION LEAD Pulse - - Temperature 36.5 ??C (97.7 ??F) 12/17/2011 6:51 PM FABRICATION LEAD Respiratory Rate 14 12/17/2011 7:30 PM FABRICATION LEAD Oxygen Saturation 98% 12/17/2011 7:30 PM FABRICATION LEAD Inhaled Oxygen Concentration - - Weight 117.5 kg (259 lb 0.7 oz) 12/17/2011 8:52 AM FABRICATION LEAD Height 177.8 cm (5' 10) 12/17/2011 8:52 AM FABRICATION LEAD Body Mass Index 37.17 12/17/2011 8:52 AM FABRICATION LEAD documented in this encounter Discharge Instructions Discharge InstructionsSarah Arizmendi RN - 12/17/2011 6:40 PM CST [facility], [place] Same-Day Surgery Adult Discharge Orders & Instructions [...] anesthesia). To contact a doctor, call _Dr. VargheseBxktr__[phone] and ask for the resident supervisor production for ENT (answered 24 hours a day) X Emergency Department: [facility]: [phone] (TTY for hearing impaired: [phone]) Tips for taking pain medications To get [...] such as with heat, ice or relaxation. ICATION LEAD documented in this encounter Medications at Time [...] Varghese MD - 12/24/2011 8:37 PM CST ICATION LEAD documented in this encounter H&P Notes Hawk Varghese MD - 12/16/2011 10:15 AM CST ICATION LEAD documented in this encounter Nursing Notes Melida [...] per Dr. Santacruz. Will continue to monitor. ICATION LEAD documented in this encounter OR Notes OR Anesthesia - Hawk Varghese MD - 12/19/2011 9:18 AM CST ICATION LEAD documented in this encounter Miscellaneous Notes Op Note - Hawk Varghese MD - 12/19/2011 8:27 AM CST PREOPERATIVE DIAGNOSIS: Right cholesteatoma. POSTOPERATIVE DIAGNOSIS: Right cholesteatoma. PROCEDURES PERFORMED: Include: 1. Right radical mastoidectomy. 2. Facial nerve monitoring x3 hours. 3. Left ear exam under anesthesia. SURGEON: Hawk Varghese MD FELLOW: Emmy Middleton MD RESIDENT: Margarita [...] nerve electrodes were then removed and a Bob dressing placed over the right ear. The patient was then returned to anesthesia, awakened, extubated and taken to the PACU in stable condition. He is noted to be a House- Brackmann 2 out of 6 at the time of extubation. HAWK VARGHESE MD MT: [place] Name: JEREMIAH MONTEIRO MRN: [id number] Account: [id number] : 1940 Procedure Date: 12/17/2011 Document: [id number] ICATION LEAD Pharmacy-Admission Medication History - Valarie Wilkes RPH - 12/17/2011 5:14 PM CST Medication history information documented by surgery nurse prior to admission. ICATION LEAD Brief Op Note - Emmy Middleton MD - 12/17/2011 4:37 PM CST ENT BRIEF OPERATIVE NOTE Pre-operative diagnosis: left cholesteatoma Post-operative diagnosis: Same Procedure: left radical tympanomastoidectomy, facial nerve monitoring Surgeon: Dr. Colette Varghese Senior Contract Specialist(s): Emmy Middleton,, Ferny Vallejo Anesthesia: General endotracheal anesthesia Estimated blood loss: [...] operative report for full details Emmy Middleton ICATION LEAD documented in this encounter Plan of Treatment Not on filedocumented as of this encounter Procedures Procedure Name Priority Date/Time Associated Diagnosis Comme nts SURGICAL PATHOLOGY Routine 12/17/2011 1:44 Result s for this EXAM PM FABRICATION LEAD procedure are i n the results section. MASTOIDECTOMY 12/17/2011 11:59 cholesteatoma AM FABRICATION LEAD documented in this encounter Results Surgical pathology exam (12/17/2011 1:44 PM FABRICATION LEAD) Component Value Ref Test Analysis Performed At [facility] Range Method Time Signature Copath Report Patient Name: JEREMIAH MONTEIRO MR#: [id number] Specimen #: [id number] Collected: 12/17/2011 Received: 12/17/2011 Reported: 12/24/2011 17:33 [...] signed out by: José Miguel Jones M.D., [facility] CLINICAL HISTORY: The patient is a [...] Microscopic examination is performed. TESTING LAB LOCATION: [facility], [address] ?? [address] COLLECTION SITE: Client: [facility] Location: UUOR (B) Specimen Anatomical Collection Method Collection Time Receive d Time (Source) Location / / Volume Laterality 12/17/2011 1:44 PM 2 5:00 FABRICATION LEAD PM FABRICATION LEAD Hawk Varghese MD LAB - [facility] Performing Organization Address City/State/ZIP Code Phon e Number COPATH documented in this encounter Visit Diagnoses Diagnosis Cholesteatoma - Primary Cholesteatoma, unspecified documented in this encounter Administered Medications Inactive Administered Medications - up to 3 most recent administrations Medication Order MAR Action Action Date Dose Rate Site fentaNYL (SUBLIMAZE) injection Given 12/17/2011 6:06 PM FABRICATION LEAD 50 m cg 25-50 mcg 25-50 mcg, Intravenous, EVERY 2 MIN PRN, other, acute pain while in PACU., Starting on Fri12/17/11 at 1657, MAX cumulative dose = 250 mcg. Use Fentanyl initially, as a short acting agent for acute pain control. If insufficient, or a longer acting agent is needed, begin Morphine or Hydromorphone if ordered., PACU Given 12/17/2011 5:10 PM FABRICATION LEAD 50 mcg HYDROmorphone (DILAUDID) injection 0.2-0 .4 mg Given 12/17/2011 6:14 PM FABRICATION LEAD 0.4 mg 0.2-0.4 mg, Intravenous, EVERY 10 [...] injection 5-10 Given 12/17/19 12 5:09 PM FABRICATION LEAD 5 mg mg 5-10 mg, Intravenous, EVERY 10 MIN PRN, PRN SBP > 160 or DBP > 100 while HR > 65 to max of 20mg total, Starting on Fri12/17/11 at 1657, PRN SBP > 160 or DBP > 100 while HR > 65 to max of 20mg total. Start at lowest dose., PACU documented in this encounter Active and Recently Administered Medications Due to Daylight Saving Time, this section may contain times in both CDT and FABRICATION LEAD. Scheduled Medication Order 12/15/2011 12/16/2011 12/17/2011 clindamycin (CLEOCIN) IVPB 900 mg (COMPLETED) 1300 (Given - Provider: Obie Craig, [employer]AG OPERATOR [facility]) 900 mg, Intravenous, for 60 Minutes, PRE -OP/PRE-PROCEDURE, For 1 dose, Give first dose within 1 hour PRIOR to incision., Pre-procedure PRN Medication Order 12/15/2011 12/16/2011 12/17/2011 bacitracin ophthalmic ointment (CANCELED) 1515 (Given - Provider: Hawk Varghese MD) PRN, Starting Fri12/17/11 at 1515, Intra-procedure EPINEPHrine 0.2mg (0.2mL of 1:1,000) in 20mL saline (CANCELED) 1303 (Given - Provider: Hawk Varghese MD - Comment: Injection, not irrigation) PRN, Starting Fri12/17/11 at 1303, Intra-procedure fentaNYL (SUBLIMAZE) injection 25-50 mcg (CANCELED) 1710 (Given - Provider: Melida Jaramillo, MARTIN)1806 (Given - Provider: Melida Jaramillo, RN) 25-50 mcg, Intravenous, EVERY 2 MIN PRN, Starting Fri12/17/11 at 1657, other, acute pain while in PACU., MAX cumulative dose = 250 mcg. Use Fentanyl initially, as a short acting agent for acute pain con trol. If insufficient, or a longer actin g agent is needed, begin Morphine or Hydromorphone if ordered., PACU HYDROmorphone (DILAUDID) injection 0.2-0.4 mg (CANCELED) 1813 (Given - Provider: Melida Jaramillo, MARTIN) 0.2-0.4 mg, Intravenous, EVERY 10 MIN NC N, Starting e 12/17/11 at 1657, Until Tu12/17/11 at 2219, moderate to severe pain, acute pain.?May administer if RR is > 10 , PACU/Phase II, If fentanyl i s also ordered, use HYDROmorphone if vince n control insufficient with fentanyl or a longer acting agent is needed. Max cumulative dose = 2 mg labetalol (NORMODYNE,TRANDATE) injection 5-10 mg (CANCELED) 1708 (Given - Provider: Melida Jaramillo RN) 5-10 mg, Intravenous, EVERY 10 MIN PRN, PRN SBP > 160 or DBP > 100 while HR > 65 to max of 20mg total, Starting e 12/17/11 at 1657, PRN SBP > 160 or DBP > 100 while HR > 65 to max of 20mg total. Start at lowest dose., PACU sodium chloride 0.9% (bottle) irrigation (CANCELED) 1516 (Given - Provider: Hawk Varghese MD) PRN, Starting e 12/17/11 at 1516, Area to irrigate and instructions: ., Intra-procedure documented in this encounter Care Teams Attending Ambulatory Care Relationship Specialty Start Date End Date Rene Chapa PCP - General 10/01/11 documented as of this encounter
--- OUTSIDE RECORDS SUMMARY | 2021-11-07 02:42 | XMS_ITS | Encounter Summary ---
:1940 Author Organization [place] Address [address] [place] [address]. [place] [address] Care Team Providers Name Role Phone Rene Chapa Primary Care Provider Unavailable Encounter Details Date Type Department Care Team Description 10/17/[address] [facility] Rachael Hussein , [facility], Health Info [facility] AUDIOGRAM, Sr[facility] [address] 10/17/[address] [id number] Social History Tobacco Use Types Packs/Day Years Used Date Never Assessed Sex Assigned at Date Recorded Not on file documented as of this encounter Plan of Treatment Not on filedocumented as of this encounter Visit Diagnoses Not on filedocumented in this encounter Care Teams Collator Relationship Specialty Start Date End Date Rene Chapa PCP - General 10/01/11 documented as of this encounter
--- OUTSIDE RECORDS SUMMARY | 2021-11-07 02:42 | XMS_ITS | Encounter Summary ---
:1940 Author Care Team Providers Name Role Phone Jeremiah Duran MD Primary Care Provider [phone] Reason for Visit Nursing Visit: TOV / Fill & Pull Assessment and Plan None recorded.Discussion Note: None [...] Reaction Severity Onset Penicillins Anaphylaxis ? ? 41631 RxNorm Percocet ? ? ? Notes: ASA- [...] Could you be ? N Preferred Language Bahamian What was the date of your most [...] Notes) disability Functional Status Unknown. Past Encounters 11/06/2021 George Reynoso MD: [address] [place] [address] [place] [address], Ph. History of Present Illness None recorded. Review of Systems None recorded. Physical Exam None recorded.
--- OUTSIDE RECORDS SUMMARY | 2021-11-07 02:42 | XMS_ITS | Encounter Summary ---
:1940 Author Organization [place] Address [address] [place] [address]. [place] [address] Care Team Providers Name Role Phone Rene Chapa Primary Care Provider Unavailable Reason for Visit Reason Comments Ear Problem Jeremiah is here today to see Dr. Hussein about a recurring cholesteatoma in his right ear. Encounter Details Date Type Department Care Team Description 11/06/2011 Office Visit Ear, Nose and Throat Rachael Hussein MD Cholesteatoma (Primary Clinic [address]) 8th Floor, Clinic [address] [facility] [address] [place], [place] [address] [place] [address] SE (Work) [place] [address] Social History Tobacco Use Types Packs/Day Years Used Date Former Smoker Cigarettes 4 1 Alcohol Use Standard Drinks/Week Comments Yes 0 [...] as of this encounter Patient Instructions Patient Lori Vallejo RN - 11/06/2011 3:43 PM CDT You will need to schedule a follow up appointment for 3 weeks after surgery. Follow up with Dr. Ray one week post op. Review the pre-operative information given to you today. Please call our clinic for any questions regarding today's visit. [phone]. documented in this encounter Progress Notes Rachael Hussein MD - 11/06/2011 4:05 PM CDT Jeremiah Worthy is seen in consultation from Dr. Ray. He is a 71 year old male with a lifelong history of bilateral ear problems. 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 He then had a sudden hearing loss on the right in 1999 resulting in profound hearing loss. 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 He continues to need tubes in both ears. He went to the operating room recently for tube placement and atthat time he was noted to have recurrent cholesteatoma on the right. He was not having symptoms prior to surgery. He did have some bleeding after surgery on that side. The left PE tube did improve his middle ear aeration. Allergies, medications, family history, social history and review of systems were reviewed in the EMR and the intake sheet. He wears a BiCJournallyMe hearing aid. He otherwise is active and feels well. Physical examination: Male in no acute distress. Facial motion shows a House Brackmann 2-3/6 on the right. He had slight voluntary weakness in all divisions as well as slight synkinesis. Left normal. Both ears examined under the microscope. Left TM shows a PE tube in position with an aerated middle ear. Right TM has a clot over the posterior superior quadrant. I removed this with a right angle pick and underneath the clot there is obvious cholesteatoma. Once I did this, he has a deep retraction intothe epitympanum with cholesteatoma still within the middle ear. Outside records were reviewed including notes, audiogram and CT scan. Audiogram shows a right profound sensorineural hearing loss and a left mild/moderate downsloping to severe sensorineural hearing loss with 88% speech discrimination at 70dB. CT shows a clean left mastoid cavity with a clear middle ear and a PE tube in position. Right mastoid cavity is clean but there is a mass in the epitympanum surrounding the long process of the incus with erosion, the stapes is visible but there is cholesteatoma on it. It extends into the antrum. The descending portion of the facial nerve is dehiscent and may have cholesteatoma on top of it. 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 Since he has no usable hearing, my recommendation would be for a radical mastoidectomy. This would exteriorize the disease, particularly the portion over the dehiscent facial nerve. I discussed with him and his family the rationale for the recommendation. We discussed the surgery and the postoperative appearance and maintenance of his ear. The risks and benefits were discussed. The risks include but are not limited to: Worsened hearing which may require further surgery, profound and irreversible hearing loss, dizziness, damage to the taste nerve, damage to the facial nerve, tympanic membrane perforation requiring further surgery and infection. We discussed his postoperative care as he will have gauze packing in his ear. Since he does live a distance away, he will see Dr. Ray 1 week postop to have the meatalplug removed. At 3 weeks, he will see me to remove the remainder of the packing that is filling the c avity. At 6 weeks, he will see Dr. Ray again for a cleaning and check. At 9 weeks, I'd like tosee him again. If everything looks healed at that point, he can continue to follow with Dr. Ray. He expressed understanding and would like to schedule this after he goes deer hunting in December. documented in this encounter Nursing Notes 11/06/2011 3:00 PM CDT >> Lori Rg RN Wed Nov 06, 2011 4:51 PM Teaching Flowsheet - ENT Relevant Diagnosis: cholesteatoma Teaching Topic:right radical mastoidectomy Person(s) involved in teaching: Patient Motivation Level: Asks Questions: Yes Eager to Learn: Yes Cooperative: Yes Receptive (willing/able to accept information): Yes Comments: Reviewed pre-op H and P, NPO prior to surgery, pre-op scrub (given Hibiclens) Reviewed post-op cares including ear/wound care, activity and pain. Patient demonstrates understanding of the following: Reason for the appointment, diagnosis and treatment plan: Yes Knowledge of proper use of medications and conditions for which they are ordered (with special attention to potential side effects or drug interactions): stop aspirin products/ fish oil 1 week before surgery Yes Which situations necessitate calling provider and whom to contact: Yes Nutritional needs and diet plan: Yes Pain management techniques: Yes Patient instructed on hand hygiene: Yes How and/when to access community resources: Yes Infection Prevention: Patient demonstrates understanding of the following: Surgical procedure site care taught Yes Signs and symptoms of infection taught Yes Wound care taught Yes Instructional Materials Used/Given: pre- op booklet, ear surgery handout and verbal Instruction. Pt will follow up with Dr. Ray one week post-op, three weeks with Dr. Hussein >> SAVANNAH GONZALES Wed Nov 06, 2011 2:51 PM Patient presents with: Ear Problem - Jeremiah is here today to see Dr. Hussein about a recurring cholesteatoma in his right ear. Savannah Gonzales INCIDENT MANAGER documented in this encounter Plan of Treatment Not on filedocumented as of this encounter Procedures Procedure Name Priority Date/Time Associated Diagnosis Comme nts HC BINOCULAR MICROSCOPY Routine 11/06/2011 4:16 PM CDT Cholest eatoma documented in this encounter Visit Diagnoses Diagnosis Cholesteatoma - Primary Cholesteatoma, unspecified documented in this encounter Care Teams Roll Hand Relationship Specialty Start Date End Date Rene Chapa PCP - General 10/01/11 documented as of this encounter
--- OUTSIDE RECORDS SUMMARY | 2021-11-07 02:42 | XMS_ITS | Encounter Summary ---
:1940 Author Care Team Providers Name Role Phone Jeremiah Duran MD Primary Care Provider [phone] Reason for Visit None recorded. Assessment and Plan Assessment Note 80 Y/O MALE, HX BPH AND CHRONIC VOIDING DIFFICULTIES. S/P LASER TURP >[address] BERNARDO.PREV CYSTO SHOWED FRIABLE RESIDUAL ADENOMA. ALSO HX NON OBSTRUCTIVE 4MM RT RENAL STONE. HE IS INTERESTED IN A LASER TURP PLAN WILL PLAN TO SCHEDULE A LASER TURP. PROCEDURE EXPLAINED IN DETAIL. TIME 20 MIN 1. Benign prostatic hyperplasia with ou tflow obstruction Discussion Note: None recorded.Patient educational handouts: No [...] 260 lbs 37.3 kg/m2 Results Lab Results None recorded. Allergies Code Code System Name Reaction Severity Onset Penicillins Anaphylaxis ? ? 06341 RxNorm Percocet ? ? ? Notes: ASA- [...] Could you be ? N Preferred Language Israeli What was the date of your most [...] Notes) disability Functional Status Unknown. Past Encounters 09/05/2021 Benign Prostatic Hyperplasia with Outflo w Obstruction George Reynoso MD: [address] [place] [address], Ph. 08/22/2021 Kidney Stone George Reynoso MD: [address] [place] [address], Ph. History of Present Illness Note: <div>80 YOM WANTS TO TLAK ABOUT SCHEDULING TURP.</div><div>
</div>& lt;div>HX OF MICROSCOPIC HEMATURIA. 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 FORMER SMOKER. HE TAKES IMBRUVICA FOR CLL. DR BERNARDO DID A GREENLIGHT LASER 10 YRS AGO. . INTERMITTENT FLOW.u/a large blood. This visit was conducted using as a Virtual Check-In by telephone to avoid undue risk of illness during the COVID-19 crisis. Prior to conducting our virtual visit by telephone, the patient was informed of the risks, benefits andalternatives to telephone visits including but not limited to inadequate audio capabilities, technological failures resulting in interruptions, delays in medical evaluation and treatment due to deficiencies or failures of equipment, failure of security protocols resulting in a breach of privacy of personal medical information and a lack of access to complete medical records resulting in not fully informed decisions. The patient elected to proceed with the telephone visit.</div><div>
</div><div>
</div> Review of Systems ? Comprehensive General [...] edule with lifestyle needs Physical Exam ? Notes: <div>HE RELATES NO CHANGES</ div>
--- OUTSIDE RECORDS SUMMARY | 2021-11-07 02:42 | XMS_ITS ---
:1940 Author Care Team Providers Name Role Phone DAVID AVELAR MD Primary Care Provider [phone] Allergies Code Code System Name Reaction Severity Status Onset Penicillins Anaphylaxis ? Active ? 55243 RxNorm Percocet ? ? Active ? Notes: ASA- GI BLEED ASA-ACETAMINOPHEN- GI BLEED Medications Name Status Start Date Stop Date ? ? Allergy Relief (fexofenadine) 180 mg tablet Active ? Not available atorvastatin 40 mg tablet Active ? Not av ailable chlorhexidine gluconate 0.12 % mouthwash Active ? Not available SWISH AND EXPECTORATE 15 TO 30 ML FOUR TIMES A DAY. NOTHING BY MOUTH FOR 30 MINUTES AFTER USE. ciprofloxacin 500 mg tablet Active ? Not available clindamycin HCl 300 mg capsule Active ? N ot available TAKE ONE CAPSULE BY MOUTH FOUR TIMES DAILY UNTIL GONE furosemide 20 mg tablet Active ? Not avai lable hydrocodone 5 mg-acetaminophen 325 mg tablet Active ? Not available Imbruvica 140 mg capsule Active ? Not cynthia ilable omeprazole 20 mg capsule,delayed release Active ? Not available potassium chloride ER 10 mEq tablet,extended Active ? Not available release(part/cryst) sulfamethoxazole 800 mg-trimethoprim 160 mg tablet Active ? Not available TAKE 1 TABLET BY MOUTH TWICE DAILY FOR 7 DAYS tamsulosin 0.4 mg capsule Active ? Not av ailable tolterodine ER 4 mg capsule,extended release 24 hr Active ? Not available tramadol 50 mg tablet Active ? Not availa ble TAKE 1 TABLET BY MOUTH EVERY 6 HOURS NEEDED FOR SEVERE PAIN Problems Name Status Onset Date Source ? Retention of Urine Active 02/04/2014 History Procedures Date Name Performed by ? ? Cataract Surgery Information not avai lable ? Hernia Repair Information not avai lable ? Orthopedic Surgery Information not avai lable ? Prostate Surgery Information not avai lable Notes: GREEN LIGHT LASER TURP ? Vasectomy Information not avai lable Results Lab Results Date Name Specimen Result Interpretation Description Value Range Status Address ? 08/22/2021 Urinalysis, Dipstick ? Color-Status Yellow ? Clarity-Status Clear ? Glucose-Status Negative ? Bilirubin-Status Negative ? Ketones-Status Negative ? Sp [place]-Status 1.020 ? pH-Status 6.5 ? Urobilinogen-Status 1.0 ? Nitrates-Status negative ? Blood-Status Large ? Leuko-Status Negative ? Specimen Type Voided ? ? 08/22/2021 Urinalysis, Dipstick ? No observation ? ? ? recorded. Past Encounters 11/06/2021 George Reynoso MD: [address], [place] [address], Ph. 09/21/2021 Retention of Urine George Reynoso MD: [address], [place] [address], Ph. 09/17/2021 George Reynoso MD: [address], [place] [address], Ph. 09/05/2021 Benign Prostatic Hyperplasia with Outflo w Obstruction George Reynoso MD: [address], [place] [address], Ph. 08/22/2021 Kidney Stone George Reynoso MD: [address], [place] [address], Ph. Social History Tobacco Smoking Status Former Smoker Vaccine List None recorded. Plan of Care Patient Instructions Patient was instructed on how to Self c ath if needed Reminders Provider Appointments None recorded. ? ? Lab None recorded. ? ? Referral None recorded. ? ? Procedures None recorded. ? ? Surgeries None recorded. ? ? Imaging None recorded. ? ? Vitals 09/05/2021 03:40PM ESTABLISHED PHONE VISIT 10 Height Weight BMI 5 ft 10 in 260 lbs 37.3 kg/m2 08/22/2021 02:30PM NEW PATIENT 10 Height Weight BMI 5 ft 10 in 260 lbs 37.3 kg/m2
[2021-11-07 02:44] LABS: Appearance Urine Cloudy (Clear); Bilirubin Urine Negative (Negative); Blood Urine 3+ (Negative); Color Urine Yellow (Yellow); Glucose Urine Negative (Negative); Ketones Urine Negative (Negative); Leukocyte Esterase Urine Trace (Negative); Nitrite Urine Negative (Negative); Protein Urine 2+ (Negative); Specific Gravity Urine 1.025 (1.000-1.030); Urobilinogen Urine 0.2 (0.2-1.0)
[2021-11-07 02:53] LABS: Bacteria Urine Few; Mucus Urine Few; Squamous Epithelial Cell Urine Few (None-Few)
--- NOTE | 2021-11-07 02:54 | ED.MALEGU ---
HPI - Male Genitourinary General Chief complaint: Urogenital Problems, Male Stated complaint: Cant pass water Time Seen by Provider: 11/07/21 02:18 Source: patient Mode of arrival: ambulatory Limitations: no limitations History of Present Illness HPI Narrative: Patient presents with acute urinary retention. He has a notable prior history of similar prior episodes. He underwent a laser prostate ablation procedure last and saw his urologist earlier today for catheter removal. The catheter was removed at approximately 11:15 a.m. and he was able to successfully void 3 times before the feeling of urinary retention started about 7:00 p.m. which is about 7 hours prior to arrival. Did avoid multiple times with no success. He already does take Flomax. He is on prophylactic antibiotic, specifically ciprofloxacin postoperatively. There were no symptoms of infection like dysuria, urgency or hesitancy prior to 7:00 p.m.. He denies any fever. He has not noted any blood. He denies abdominal pain, new injury or trauma. He has no other acute specific concerns today. He is quite heard appearing which does make the exam difficult today. No pain in the penis. We have some outside the line records for review from his urologist. Past medical history is notable for BPH, CLL, hyperlipidemia, hearing loss, chronic edema secondary to. Medications are reviewed and updated from the [facility] records. Related Data Home Medications Medication Instructions Recorded Confirmed atorvastatin 40 mg tablet 40 mg PO .Bedtime 08/27/21 09/19/21 diphenhydramine 25 1 tab PO .Bedtime 08/27/21 09/19/21 mg-acetaminophen 500 mg tablet fexofenadine 180 mg tablet 180 mg PO DAILY 08/27/21 09/19/21 furosemide 20 mg tablet 20 mg PO DAILY 08/27/21 09/19/21 ibrutinib 140 mg capsule 280 mg PO DAILY chronic lymphesmic 08/27/21 09/19/21 leukemia omeprazole 20 mg capsule,delayed 20 mg PO QDAY PRN 08/27/21 09/19/21 release potassium chloride 10 mEq 10 meq PO DAILY 08/27/21 09/19/21 capsule,extended release tamsulosin 0.4 mg capsule ea PO 09/19/21 09/19/21 Previous Rx's Medication Instructions Recorded ciprofloxacin HCl 500 mg tablet 500 mg PO BID 7 days #14 tabs 09/12/21 Allergies Allergy/AdvReac Type Severity Reaction Status Date / Time penicillin V Allergy Severe Tongue Verified 09/19/21 16:14 swelling aspirin Allergy Intermediate Excessive Verified 09/19/21 16:14 bleeding oxycodone AdvReac Mild Nausea/vomi Verified 09/19/21 16:14 ting Review of Systems Narrative: Negative for generalized, abdominal, skin, neurological changes. Notable for the urinary symptoms as above only. [facility] Medical History Arthritis Barretts esophagus Chronic lymphocytic leukemia (CLL), B-cell GERD (gastroesophageal reflux disease) High cholesterol Iron deficiency anemia YAJAIRA (obstructive sleep apnea) Surgical History H/O abdominal surgery H/O hernia repair H/O total shoulder replacement History of ear surgery History of total left knee replacement S/P trigger finger release (09/06/21) Social History Smoking Status: Former smoker What tobacco products do you use: cigarettes Smoking quit date/years: >15 years ago Do you use any of these nicotine containing products: None Second hand tobacco smoke exposure: No How often do you have a drink containing alcohol: never AUDIT-C Alcohol total score: 0 Non-prescribed substance use: denies use Exam Const: Vital Signs, click to edit/add: Vital Signs - 24 hr 11/07/21 02:11 Temperature 97.8 F Pulse Rate [Left P ulse Oximeter] 104 H Respiratory Rate 16 Blood Pressure [Le ft Upper Arm] 143/76 H Pulse Oximetry 96 Oxygen Delivery Me thod Room Air Documenting provider has reviewed patient's vital signs: yes Common normals: no apparent distress General appearance: cooperative Other: Hard of hearing. HENMT: Common normals: normocephalic Head and scalp: normocephalic Eye: Common normals: conjunctivae normal and no scleral icterus Conjunctiva: conjunctiva(e) normal Resp: Common normals: normal respiratory effort Effort & inspection: able to speak in complete sentences Cardio: Other: 2+ edema to both legs, patient reports this is chronic. Pulses are regular. GI: Common normals: Normal to inspection, nondistended, normoactive bowel sounds present, soft to palpation and non-tender Palpation: soft Psych: Appearance: grossly normal Attitude: calm and engaged Insight: insight good Skin: Common normals: no rashes or lesions noted General skin exam: no rashes or lesions noted Course Vital Signs Vital signs: Initial Vital Signs Temperature 97.8 F 11/07/21 02:11 Temperature Source Temporal Artery Scan 11/07/21 02:11 Pulse Rate 104 H 11/07/21 02:11 Respiratory Rate 16 11/07/21 02:11 Blood Pressure 143/76 H 11/07/21 02:11 Blood Pressure Mean 98 11/07/21 02:11 Blood Pressure Position Sitting 11/07/21 02:11 Pulse Oximetry 96 11/07/21 02:11 Oxygen Delivery Method 11/07/21 02:11 Vital Signs Temperature 97.8 F 11/07/21 02:11 Pulse Rate 104 H 11/07/21 02:11 Respiratory Rate 16 11/07/21 02:11 Blood Pressure 143/76 H 11/07/21 02:11 Pulse Oximetry 96 11/07/21 02:11 Oxygen Delivery Method 11/07/21 02:11 Temperature 97.8 F 11/07/21 02:11 Pulse Rate 104 H 11/07/21 02:11 Respiratory Rate 16 11/07/21 02:11 Blood Pressure 143/76 H 11/07/21 02:11 Pulse Oximetry 96 11/07/21 02:11 Oxygen Delivery Method 11/07/21 02:11 MDM - Male Genitourinary MDM Narrative Medical decision making narrative: Patient counseled on findings. UA is reviewed and notable for blood, not unexpected from recent procedure but no worrisome findings of infection. Culture will be performed. Catheters placed with about 600 mL of clear urine noted. Patient had relief of symptoms. Plan of care discussed. He will call his urologist in the morning and make arrangements for repeat evaluation and catheter removal. Typical catheter care instructions discussed. Complete course of Cipro. Ask if the urologist wants him to be on additional antibiotics. There is no reason for me to call the urologist at 3:00 a.m.. Lab Data Labs: Lab Results 11/07/21 Range/Units 02:37 Urine Color Yellow (Yellow) Urine Appearance Cloudy A (Clear) Urine pH 6.0 (5.0-8.5) Ur Specific [place] 1.025 (1.000-1.030) Urine Protein 2+ A (Negative) Urine Glucose (UA) Negative (Negative) Urine Ketones Negative (Negative) Urine Blood 3+ A (Negative) Urine Nitrite Negative (Negative) Urine Bilirubin Negative (Negative) Urine Urobilinogen 0.2 (0.2-1.0) Ur Leukocyte Esterase Trace A (Negative) Urine RBC 10-25 A (0-2) Urine WBC 2-5 (0-5) Ur Squamous Epith Cells Few (None-Few) Urine Bacteria Few A (None) Urine Mucus Few A (None) Discharge Plan Discharge Clinical Impression: Acute urinary retention Patient Disposition: Home, Self-Care Condition: Improved Instructions: Urinary Retention in Men (ED), Brody Catheter Placement and Care (ED) Additional Instructions: These complications can be common after a prostate intervention. Please call your urologist in the morning and let him know that we had to replace the catheter. Continue taking the remainder of your medications as prescribed. He will need to see you in the office to remove the catheter again. Activity Level: No Restrictions Discharge Diet: Regular Prescriptions: No Action tamsulosin 0.4 mg capsule PO Label Comments: TAKE 1 CAPSULE BY MOUTH EVERY DAY DIRECTED diphenhydramine-acetaminophen 25-500 mg tablet 1 tab PO .Bedtime furosemide 20 mg tablet 20 mg PO DAILY fexofenadine 180 mg tablet 180 mg PO DAILY potassium chloride 10 mEq capsule, extended release 10 meq PO DAILY atorvastatin 40 mg tablet 40 mg PO .Bedtime omeprazole 20 mg capsule,delayed release(DR/EC) 20 mg PO QDAY PRN ibrutinib 140 mg capsule 280 mg PO DAILY Rx Instructions: take 2 capsules daily. ciprofloxacin HCl 500 mg tablet 500 mg PO BID 7 Days Qty: 14 0RF Follow Up/Referrals: Jeremiah Duran MD [Primary Care Provider] - Stand Alone Forms: [employer] Info Instructions
== END 2021-11-07 03:18 | disposition home or self-care (01) ==
LOC: ED 02:38
PROVIDERS: Emergency Provider Family Medicine; PCP Family Medicine
DX: R33.9 Retention of urine, unspecified (principal)
CPT/HCPCS: 51702; 51798; 81003; 81015; 87086; 99282; 99283; 99284

== ENCOUNTER 2021-11-14 13:27 | Outpatient (RCR) | payer MEDICARE, BC, SELFPAY ==
--- NOTE | 2022-03-21 17:43 | ONC.NURNOTE ---
Addendum entered by Bertha Huitron RN 04/03/22 15:32: Please disregard note as this was meant for a different patient Original Note: Dr. Floyd reviewed patients labs and noted elevated platelets up to 980. Elevator Erector Helper called patient's home and talked to Catarina. Patient denies any hematuria/black/tarry stool or any blood in stool. Does state patient seems to be getting weaker and is getting occasional headaches that go away. Denies headache at current time. Plan is for patient to go to ER if headache returns otherwise stay on current plan of Hydrea and come in for a recheck on Friday. Patient's believes he had iron studies a 1-2 years ago so writer technical publications to look into this tomorrow.
--- NOTE | 2022-05-01 10:17 | ONC.NURNOTE ---
Dr. Polk reviewed labs and added some additional labs to his next draw on 05/28/22. Patient called and told and will plan on providing a UA when he gets here and will also bring in a stool specimen for Hemoccult test.
== END 2022-05-13 23:59 | disposition home or self-care (01) ==
LOC: CCIC 13:27
PROVIDERS: PCP Family Medicine; Visit Provider Internal Medicine Hematology & Oncology
DX: C91.10 Chronic lymphocytic leukemia of B-cell type not having achieved remission (principal); R60.9 Edema, unspecified; R31.9 Hematuria, unspecified; R33.9 Retention of urine, unspecified; C83.00 Small cell B-cell lymphoma, unspecified site
CPT/HCPCS: 99212; 99213; 99214

== ENCOUNTER 2021-11-19 11:15 | Outpatient (RCR) | payer MEDICARE, BC, SELFPAY ==
--- NOTE | 2021-09-19 17:22 | PT.OPEX ---
PT [facility] Outpatient Eval PT [facility] Outpatient Eval Start: 09/19/21 14:30 Freq: Status: Active Protocol: Document 09/19/21 14:31 NMK (Rec: 09/19/21 15:52 NMK [id number]) E-signed By José Luis Best DPT Physical Therapy Outpatient Evaluation Insurance Information Recert Due Date 12/20/21 Insurance Name Medicare B,Blue Cross/[employer] Shield Medical Diagnosis Pain in Left Shoulder Treating Diagnosis Left shoulder pain Referring Yvon Matias MD Subjective Subjective 80 y.o. male pt presents with primary c/o L shoulder pain and upper back pain. He reports it travels down his thoracic region on his L side. He reports it has been difficult to sleep at night because of the pain. Pt denies numbness or tingling at this time. Symptoms have been present for : about 3 months Mechanism of injury: Came on over time Pain quality: Constant ache but it made worse at night when sleeping Current symptom progression: Symptoms have progressively gotten worse over time Current limitations: Laying down/sleeping, lifting, and reaching Palliating Activities: He has tried multiple modalities and NSAID's. These improve the pain temporarily. Pt goals: Pt would like to get rid of the pain PMH significant for: Pt has chronic lymphocytic leukemia ( CLL); he is having this treated with various medications at this time. He is having bladder issues unrelated to current pathology and he has a catheter in place at this time PSH significant for: Bilateral shoulder replacement Current Work Status Retired Precautions Treatment Precautions/Contraindications Catheter; Cancer; Bilateral Shoulder replacements Therapy Limitations/Systems Review Not Limited Objective Other/Pertinent Objective MMT: L Shoulder flexion: 5 Shoulder abduction: 5 Shoulder 90-90 ER: 4-* Shoulder 90-90 IR: 4+ Shoulder ER: 4+ Shoulder IR: 4-* *Indicates pain present with resisted testing ROM All shoulder ROM is WNL at this time. Some pain present at end range shoulder flexion. Painful arc sign positive into abduction. Special tests Full can: (+) on L for pain Empty can: (-) on L for pain External rotation resistance test: (+) on L for pain Painful arc: (+) on L for pain Palpation: TTP present over L UT, posterior cuff, L thoracic erector spinae, and L suboccipital muscles. 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 Pt has also has multiple tender points along UT and thoracic soft tissues. Impairments related to current health condition include L shoulder pain, L shoulder weakness, and limited L shoulder ROM. These impairments contribute to decreased capacity to perform reaching activities, difficult with sleep, as well as difficulty lifting . Examination of body systems including structures, functions, activity limitations and participation restrictions have been addressed. Skilled PT is recommended in order to improve the patient's mobility and restore their baseline level of function. Within session patient tolerating scapular strengthening as well posterior capsule stretching with minor reports of pain that subsided with rest. Primary Functional Limitations Reaching, sleeping, lifting Plan of Care Rehabilitation Potential Fair Physical Therapy Goals Prior to 12/20/2021... 1. Pt will demonstrate shoulder active range of motion >150 degrees in shoulder flexion and abduction , and report no pain to show functional ability to reach into cabinets at home 2. Pt will report <3/10 pain while sleeping at night and wake up less than 3 times per night from pain to show enhanced sleep quality 3. Pt will be independent in HEP in order to show ability to self manage condition after discharge Coordination/Communication With Referral Source Treatment Plan/Direct Interventions Joint Mobilization,Manual Therapy,Therapeutic Exercises Frequency/Duration 1-2 per week for 8-12 weeks Patient Will Be Discharged From Therapy Completion of LTG(s),Skills Plateau,Independent w/HEP, Independently Progressing Evaluation Billing Untimed Code Treatment Minutes 20 Complexity Moderate
--- NOTE | 2021-11-13 13:03 | ONC.NURNOTE ---
Patient has appt with Dr Polk tomorrow labs reviewed and called to patient reports significant challenges with urinary retention
== END 2022-08-29 23:59 | disposition home or self-care (01) ==
PROVIDERS: PCP Family Medicine; Visit Provider Orthopaedic Surgery
DX: M25.512 Pain in left shoulder (principal); Z51.89 Encounter for other specified aftercare
CPT/HCPCS: 97110; 97140; 97162

== ENCOUNTER 2022-07-16 08:47 | Outpatient (CLI) | payer MEDICARE, BC, SELFPAY ==
--- NOTE | 2022-07-16 07:20 | P.ANHP_ITS ---
HPI - Pre-Anesthesia History of Present Illness Time Seen by Provider: 09:31 Date Seen: 07/16/22 Date of service: 07/16/22 Reason for visit: occult positive blood. EGD.colonoscopy Source: patient and old records reviewed Review of Systems Status of ROS Reports: 10 or more systems reviewed and unremarkable except as noted in History and below [facility] Medical History (Updated 07/16/22 @ 07:22 by Oscar Arroyo MD) Iron deficiency anemia ?D50.9 - Iron deficiency anemia, unspecified (ICD-10) Arthritis ?M19.90 - Unspecified osteoarthritis, unspecified site (ICD-10) GERD (gastroesophageal reflux disease) ?K21.9 - Gastro-esophageal reflux disease without esophagitis (ICD-10) Barretts esophagus ?K22.70 - Arshad's esophagus without dysplasia (ICD-10) YAJAIRA (obstructive sleep apnea) ?G47.33 - Obstructive sleep apnea (adult) (pediatric) (ICD-10) High cholesterol ?E78.00 - Pure hypercholesterolemia, unspecified (ICD-10) Surgical History History of ear surgery ?Z98.890 - Other specified postprocedural states (ICD-10) H/O hernia repair ?Z98.890 - Other specified postprocedural states (ICD-10) ?Z87.19 - Personal history of other diseases of the digestive system (ICD-10) H/O abdominal surgery ?Z98.890 - Other specified postprocedural states (ICD-10) H/O total shoulder replacement ?Z96.619 - Presence of unspecified artificial shoulder joint (ICD-10) History of total left knee replacement ?Z96.652 - Presence of left artificial knee joint (ICD-10) S/P trigger finger release (09/06/21) ?Z98.890 - Other specified postprocedural states (ICD-10) Social History Smoking Status: Former smoker What tobacco products do you use: cigarettes Smoking quit date/years: >15 years ago Do you use any of these nicotine containing products: None Second hand tobacco smoke exposure: No How often do you have a drink containing alcohol: never AUDIT-C Alcohol total score: 0 Non-prescribed substance use: denies use Meds Home Medications and Allergies Home Medications Medication Instructions Recorded Confirmed Type atorvastatin 40 mg tablet 40 mg PO .Bedtime 08/27/21 07/04/22 History diphenhydramine 25 1 tab PO .Bedtime 08/27/21 07/04/22 History mg-acetaminophen 500 mg tablet fexofenadine 180 mg tablet 180 mg PO DAILY 08/27/21 07/04/22 History furosemide 20 mg tablet 20 mg PO DAILY 08/27/21 11/14/21 History ibrutinib 140 mg capsule 280 mg PO DAILY chronic lymphesmic 08/27/21 11/14/21 History leukemia omeprazole 20 mg capsule,delayed 20 mg PO QDAY PRN 08/27/21 07/04/22 History release potassium chloride 10 mEq 10 meq PO DAILY 08/27/21 07/04/22 History capsule,extended release tamsulosin 0.4 mg capsule ea PO 09/19/21 07/04/22 History Allergies Allergy/AdvReac Type Severity Reaction Status Date / Time penicillin V Allergy Severe Tongue Verified 07/04/22 10:39 swelling aspirin Allergy Intermediate Excessive Verified 07/04/22 10:39 bleeding oxycodone AdvReac Mild Nausea/vomi Verified 07/04/22 10:39 ting Exam Const Documenting provider has reviewed patient's vital signs: yes Common normals: no apparent distress, oriented x3, healthy appearing, alert and well nourished General appearance: cooperative and comfortable Orientation/consciousness: Yes awake HENMT Common normals: normocephalic Head and scalp: normocephalic Neck & C-Spine Common normals: full ROM Chest Chest: symmetrical chest wall rise Resp Common normals: normal respiratory effort, no retractions, no use of accessory muscles and clear to auscultation bilaterally Auscultation: clear to auscultation bilaterally Cardio Common normals: regular rate, regular rhythm, S1 normal heart sound, S2 normal heart sound and no murmurs Rate: regular rate Rhythm: regular rhythm Heart sounds: S1 normal and S2 normal Neuro Common normals: oriented x3 Sensorium/orientation: awake and alert Assessment and Plan Assessment and plan (1) Occult blood positive stool: Status: Acute Plan no contraindication to proceeding with anesthesia for endoscopy
--- NOTE | 2022-07-16 09:32 | W.ANESCHARGE ---
Anesthesia Charges Start Date/Time Anesthesia Start Date: 07/16/22 Anesthesia Start Time: 09:36 Stop Date/Time Anesthesia Stop Date: 07/16/22 Anesthesia Stop Time: 10:22 Summary Extremes of Age - Over 70 or under 1: MDA
--- NOTE | 2022-07-16 10:29 | W.ANESCHARGE ---
Anesthesia Charges Start Date/Time Anesthesia Start Date: 07/16/22 Anesthesia Start Time: 09:36 Stop Date/Time Anesthesia Stop Date: 07/16/22 Anesthesia Stop Time: 10:22
== END 2022-07-16 08:48 | disposition home or self-care (01) ==
LOC: OP CLINIC 08:47
PROVIDERS: PCP Family Medicine; Referring Provider Internal Medicine Hematology & Oncology; Visit Provider Surgery
DX: R19.5 Other fecal abnormalities (principal); K63.5 Polyp of colon; K64.8 Other hemorrhoids; K44.9 Diaphragmatic hernia without obstruction or gangrene; K92.2 Gastrointestinal hemorrhage, unspecified
CPT/HCPCS: 43239; 45385; 813; 88305; 88342; 99100; J2704; J3490

== ENCOUNTER 2022-10-07 13:00 | Outpatient (RCR) | payer MEDICARE, BC, SELFPAY ==
--- NOTE | 2022-03-14 13:38 | ONC.NURNOTE ---
lab reminder call to patient due in February will make appt for lab draw next week at [facility] RTC due
--- NOTE | 2022-04-03 15:01 | AT.DPN ---
Patient has appt 04/16/22 at [facility] for CBC recheck to monitor last Hg change of 9.9 orders faxed to [facility] lab today dejan Booth
--- NOTE | 2022-06-26 14:53 | ONC.NURNOTE ---
per phone call- patient has an appt at [facility] for lab work on 07/02/22 and RTC 07/04/22
--- NOTE | 2022-07-22 15:23 | ONC.NURNOTE ---
Patient called to say that [facility] does not have his orders for labs at the [facility]. Orders were printed and faxed today.
== END 2022-10-09 17:06 | disposition home or self-care (01) ==
PROVIDERS: PCP Family Medicine; Visit Provider Family Medicine
DX: I89.0 Lymphedema, not elsewhere classified (principal); Z51.89 Encounter for other specified aftercare
CPT/HCPCS: 97110; 97140; 97162; 97165; 97535

== ENCOUNTER 2022-11-04 14:30 | Outpatient (RCR) | payer MEDICARE, BC, SELFPAY ==
--- NOTE | 2022-05-29 16:21 | ONC.NURNOTE ---
Called patient due to not coming in for his labs on 05/28 and patient stated he doesn't necessarily want to bring in a stool sample in and stated he would try to have labs drawn in clinic. He stated he knows why his hemoglobin is low and its from his prostate surgery but he had lots of labs yesterday so junior underwriter called to see if he could add Ferritin and Iron studies to them but they stated patient did it on 05/23 so blood has been thrown out. Will talk with MD and patient tomorrow to see if he should still come in.
[2022-05-31 11:49] LABS: Fecal Occult Blood* Positive (Negative)
[2022-05-31 11:50] LABS: Iron* 17 ug/dL (49-181)
[2022-05-31 11:59] LABS: Percent Iron Saturation 4 % (20-50); Total Iron Binding Capacity 444 ug/dL (261-462)
--- NOTE | 2022-06-05 11:15 | ONC.NURNOTE ---
Patient with positive guaiac stool and hematuria and feels it is caused from the Imbruvica so MD reviewed concerns and patient to not take his Imbruvica for 4 weeks and then we can retest stool and also find out from him if the hematuria has improved. Patient won't take any starting 06/06. Patient with MD appointment June 24 so that was moved to july 04 when he should bring in his stool sample and see MD to discuss further plans.
[2022-07-02 12:26] LABS: Fecal Occult Blood* Positive (Negative)
--- NOTE | 2022-07-05 14:13 | ONC.NURNOTE ---
Jeremiah reports that he is unable to get in at [facility] with Dr Monte until 08/26/22 per patients request orders faxed to [facility]- availability mid July Jeremiah will have lab recheck the first week in July to continue to monitor the Hg
--- NOTE | 2022-07-09 15:20 | ONC.NURNOTE ---
Patient has been scheduled at [facility] for endo/colonoscopy 07/16/22 he reports significant fatigue and is requesting a blood transfusion patient was informed that he would need to be evaluated by PCP since his last Hg was 9.1 next lab is due at [facility] on 07/15/22
--- NOTE | 2022-09-11 14:07 | ONC.NURNOTE ---
Addendum entered by Dora Juárez RN 09/23/22 15:46: Bristle Machine Operator spoke with Jeremiah- since he is no longer taking Imbruvica or any other CLL treatment at this time- he will need to let the jose and will reapply if/when he restarts on treatment Original Note: Jeremiah states he received a letter stating [employer] is running out. He was not sure what to do. States his Imbruvata is on hold right now per Dr. Polk and his labs. [phone]. Note left for Marii to address on 09/23.
== END 2022-11-27 23:59 | disposition home or self-care (01) ==
LOC: CCIC 14:30
PROVIDERS: PCP Family Medicine; Referring Provider Family Medicine; Visit Provider Internal Medicine Hematology & Oncology
DX: C91.10 Chronic lymphocytic leukemia of B-cell type not having achieved remission (principal); R60.9 Edema, unspecified; R31.9 Hematuria, unspecified; R33.9 Retention of urine, unspecified
CPT/HCPCS: 36415; 81003; 82270; 82728; 83540; 83550; 99212; 99213; 99214

== ENCOUNTER 2023-08-13 14:00 | Outpatient (RCR) | payer MEDICARE, BC, SELFPAY ==
[2023-08-11 09:33] LABS: Basophils Absolute Auto 0.02 K/uL (0.00-0.30); Basophils Percent Auto 0.3 % (0.0-3.0); Eosinophils Absolute Auto 0.22 K/uL (0.00-0.50); Eosinophils Percent Auto 2.9 % (0.0-7.0); Hematocrit 39.2 % (37.0-53.0); Hemoglobin* 11.5 gm/dL (13.5-17.5); Immature Granulocytes Abs Auto 0.01 K/uL (0.00-0.30); Immature Granulocytes Pct Auto 0.1 %; Lymphocytes Absolute Auto 2.58 K/uL (0.90-2.90); Lymphocytes Percent Auto 34.1 % (20-44); Mean Corpuscular HGB Conc 29 gm/dL (32-36); Mean Corpuscular Hemoglobin 24 pg (26-34); Mean Corpuscular Volume 80 fL (80-100); Monocytes Percent Auto 8.5 % (0.0-11.0); Neutrophils Absolute Auto 4.09 K/uL (1.7-7.0); Neutrophils Percent Auto 54.1 % (42.0-72.0); Platelet Count* 220 K/uL (140-440); Red Blood Count 4.89 m/uL (4.30-5.90); White Blood Count* 7.56 K/uL (4.50-11.00)
[2023-08-11 09:34] LABS: Slide Review Reflex No
[2023-08-11 09:46] LABS: Albumin* 4.6 g/dL (3.3-5.0); Chloride* 109 mmol/L (96-114); Sodium* 140 mmol/L (135-149)
[2023-08-11 09:47] LABS: Potassium* 4.4 mmol/L (3.6-5.1)
[2023-08-11 09:49] LABS: Alanine Aminotransferase* 18 U/L (4-50); Alkaline Phosphatase* 105 U/L (40-150); Anion Gap 8 mEq/L (7-15); Aspartate Amino Transferase* 25 U/L (12-35); Bilirubin Total* 0.8 mg/dL (0.1-1.5); Blood Urea Nitrogen* 20 mg/dL (7-30); Calcium* 9.6 mg/dL (8.4-10.6); Carbon Dioxide* 23 mmol/L (20-32); Creatinine* 1.2 mg/dL (0.5-1.5); Estimated Glomerular Filt Rate 61 ml/min; Glucose* 106 mg/dL (60-115); Lactate Dehydrogenase* 160 U/L (120-246); Total Protein* 7.3 g/dL (6.0-8.3)
== END 2023-11-01 23:59 | disposition home or self-care (01) ==
LOC: CCIC 14:00
PROVIDERS: PCP Family Medicine; Referring Provider Family Medicine; Visit Provider Internal Medicine Hematology & Oncology
DX: C91.10 Chronic lymphocytic leukemia of B-cell type not having achieved remission (principal); K29.01 Acute gastritis with bleeding; D50.9 Iron deficiency anemia, unspecified; R60.9 Edema, unspecified; R31.9 Hematuria, unspecified; R33.9 Retention of urine, unspecified
CPT/HCPCS: 36415; 80053; 83615; 85025; 99213; 99214; G0463

== ENCOUNTER 2023-10-09 06:13 | Day surgery (SDC) | payer MEDICARE, BC, SELFPAY ==
[2023-10-09] VITALS (7 sets, daily range): BP systolic 133–162; BP diastolic 73–91; PULSE 74–95; RESP 16–20; TEMP 36.7–37.1; O2SAT 93–97; BMI 36.7
--- OUTSIDE RECORDS SUMMARY | 2023-10-09 06:15 | XMS_ITS | Clinical Summary ---
Author Organization [facility] Address [address] [place] [address]. [place] [address] Care Team Providers Care Sales Promotion Coordinator Name Role Phone No Ref-Primary, Physician Primary Care Provider Allergies Active Allergy Reactions Criticality Noted Date Comments Aspirin High 11/06/2011 Ate hole in stomach needed a blood transfusion from taking an 81 mg ASA Penicillins High 11/06/2011 Tongue swelling, throat swelling. Oxycodone-Acetaminophe n Other (See Comments) Low 11/06/2011 Stomach upset Medications Medication Sig Dispensed Refills Start Date End Date Status Diphenhydramine-APAP, sleep, (TYLENOL PM EXTRA STRENGTH PO) Take by mouth daily. Active melatonin 3 MG tablet Take by mouth nightly as needed. Active fexofenadine (MARKIE) 180 MG tablet Take 180 mg by mouth every morning Active simvastatin (ZOCOR) 20 MG tablet Take 20 mg by mouth every morning Active Multiple Vitamin (MULTI-VITAMIN PO) Take by mouth every morning. Active fish oil-omega-3 fatty acids 1000 MG capsule Take 2 g by mouth daily. Active omeprazole (PRILOSEC) [address] capsule Take 20 mg by mouth daily Active ofloxacin (FLOXIN) 0.3 % otic solutionIndications:O torrhea 4-5 drops to the right ear twice a day until return to clinic (Start in one week) 1 Bottle 4 01/06/2012 Active atorvastatin (LIPITOR) 40 MG tablet Take 40 mg by mouth daily Active furosemide (LASIX) 20 MG tablet Take 20 mg by mouth daily Active ibrutinib (IMBRUVICA) 420 MG tablet Take 420 mg by mouth daily Active potassium chloride ER (MICRO-K) 10 MEQ CR capsule Take 10 mEq by mouth daily Active tolterodine ER (DETROL LA) 4 MG 24 hr capsuleIndications:BP H with urinary obstruction Take 1 capsule (4 mg) by mouth daily 7 capsule 11/01/2021 Active Active Problems Problem Noted Date Diagnosed Date Otorrhea 01/09/2012 Cholesteatoma 01/09/2012 Social History Tobacco Use Types Packs/Day Years Used Date Smoking Tobacco: Former Cigarettes 4 1 0 02/10/1967 - 02/11/1968 Alcohol Use Standard Drinks/Week Comments Yes 0 (1 standard drink = 0.6 oz pur e alcohol) Every two weeks Adolescent Education Answer Date Record ed Getting School Help Needed Not on file 11/01 Sex and Gender Information Value Date Recorded Sex Assigned at Not on file Gender Identity Not on file Sexual Orientation Not on file Last Filed Vital Signs Vital Sign Reading [...] ANNUAL REVIEW OF HM ORDERS 1941 LIPID 1941 RSV VACCINE ( & 60+) (1 - 1-dose 60+ series) 2001 FALL RISK ASSESSMENT 2006 DTAP/TDAP/TD IMMUNIZATION (2 - Td or Tdap) 01/31/2021 01/31/2011, 09/29/2001 MEDICARE ANNUAL WELLNESS VISIT 11/14/2021 11/14/2020, 2019 COVID-19 Vaccine ( season) 2022 10/24/2021, 10/24/2021, 05/29/2021, Additional history exists PHQ-2 (once per calendar year) 2023 INFLUENZA VACCINE (#1) 2023 2, 11/07/2020, 10/12/2019, Additional history exists Pneumococcal Vaccine: 65+ Years Completed 01/14/2014, 01/29/2013, 10/29/2005 ZOSTER IMMUNIZATION Completed 12/01/2018, 09/30/2018, 08/19/2007 HPV IMMUNIZATION Aged Out No longer e ligible based on patient's age to complete this topic MENINGITIS IMMUNIZATION Aged Out No l onger eligible based on patient's age to complete this topic RSV MONOCLONAL ANTIBODY Aged Out No l onger eligible based on patient's age to complete this topic Care Teams Sales Promotion Coordinator Relationship Specialty Start Date End Date No Ref-Primary, Physician PCP - General 08/25/23
--- OUTSIDE RECORDS SUMMARY | 2023-10-09 06:15 | XMS_ITS | Clinical Summary ---
Author Organization [employer] [facility] Address [place], [place] [address] Care Team Providers Care Fire Prevention Inspector Name Role Phone Anatoly Haas MD Unavailable [phone] Jackelin Rausch Unavailable Curt Porras Unavailable [phone] Jeremiah Duran MD Primary Care Provider Allergies Active Allergy Reactions Criticality Noted Date Comments Ypn-Vltnedwoimtkx-Eultypw-Caff GI Bleeding 01/10 Aspirin GI Bleeding 01/21/2007 Penicillins Anaphylaxis 8 YO Oxycodone-Acetaminophen Nausea Only 04/02/2010 Tolerated Vicodin Medications Medication Sig Dispensed Refills Start Date End Date Status fexofenadine (Lorri) 180 mg tabletIndications:All ergy, sequela Take 180 mg by mouth once daily. 90 Tablet 3 12/31/2021 Active tolterodine (DETROL LA) 4 mg Extended-Release capsuleIndications:OA B (overactive bladder) Take 1 Capsule (4 mg) by mouth once daily. 90 Capsule 3 01/09/2023 Active omeprazole (PRILOSEC) 20 mg Delayed-Release capsuleIndications:Ba rrett's esophagus without dysplasia Take 1 Capsule (20 mg) by mouth once daily before a meal. 90 Capsule 4 01/09/2023 Active atorvastatin (LIPITOR) 40 mg tabletIndications:Mix ed hyperlipidemia Take 1 Tablet (40 mg) by mouth once daily. 90 Tablet 4 01/09/2023 Active CPAPIndications:YAJAIRA (obstructive sleep apnea) CPAP machine for home use at pressure 10 cm/H2O, full face mask x1/3month 1 Each 4 01/20/2023 Active clotrimazole-betameth asone cream (LOTRISONE) 1-0.05 % creamIndications:Rash Apply topically to affected area(s) two times daily. 15 g 1 04/22/2023 Active Active Problems Problem Noted Date Diagnosed Date Small B-cell lymphoma, unspecified body region 0 04/22/2023 Lymphedema 08/15/2022 Stage 3a chronic kidney disease 03/29/2021 CLL (chronic lymphocytic leukemia) 02/17/2019 Bilateral lower extremity edema 02/17/2019 YAJAIRA 06/23/2000 AHI-9 11/06/2018 Status post Fei fundoplic ation (without gastrostomy tube) procedure 04/26/2016 Impaired fasting glucose 09/08/2014 Risk for falls 07/29/2012 Overview: S/P ear surgery: balance is compromised, especially with rapid postural changes. 07/29/2012 ACP (advance care planning) 01/31/2011 Overview: Discussed; will bring in a copy. 01/31/2011 Mixed hearing loss, bilateral 01/21/2007 Overview: Bilateral: chronic Esophageal reflux 09/18/2006 Mixed hyperlipidemia 09/18/2006 Resolved Problems Problem Noted Date Diagnosed Date Resolved Date Urinary urgency 08/19/2016 12/31/2021 Adenomatous colon polyp 05/24/201312/12 Overview: Colonoscopy 05/2013 polyps repeat in 5 years Colonoscopy 09/2018 normal, no follow up needed Lymphocytosis 01/08/2012 2019 Overview: B Cell Lymphocytosis. 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 05/10/19 17 Overview: EGD 07/2013 normal esophagus, no follow up needed EGD 04/2016 No Arshad's on the last 2 exams, Jluis erosion in the hiatal hernia, no follow up EGD needed Acute posthemorrhagic anemia 09/18/2006 02/07/2009 Unspecified sleep apnea 06/10/200010/12 Immunizations Name Administration Dates Next Due COVID-19 Vaccine Spikevax (M oderna 50mcg/0.5mL) 12YO+ [id number] Formula PF 01/09/2023 COVID-19 vaccine (Sketchfab-Bio NTech 30mcg/0.3mL) 12YO+ BIVALENT PF, MDV 08/15/2022,10/24/2021 COVID-19 vaccine (Pfizer-Bio NTech 30mcg/0.3mL) 12YO+ MARIANNA-SUCROSE PF, MDV 05/29/2021 COVID-19 vaccine (Sketchfab-Bio NTech 30mcg/0.3mL) PF, MDV 10/30/2020,04/11/2020,03/21/2020 Influenza, High-dose Inactivated 019,11/06/2017,11/07/2016,2015,10/19/2014,10/25/2013,11/01/2012 Influenza, High-dose Quadriv alent Inactivated 11/07/2020 Influenza, IIV3 (Age 6-35 mos) 10/12/2019,2009 Influenza, IIV3 (Age >=3 years) 11/11/19 13,10/23/2011,10/23/2011,2010,10/25/2009,11/01/2008,11/30/2007,1 ,11/15/2005,12/19/2004, 003 Influenza, Inactivated AIIV4 (Age 65+ Years) Preserv Free 01/09/2023,10/24/2021 Pneumococcal Conj 20-valent (Prevnar 20) 08/15/2022 Pneumococcal Poly,23-Valent (Pneumovax) 01/29/2013,10/29/2005 Pneumococcal conj 13-Valent (Prevnar 13) 01/14/2014 Td (Age >=7 Years) 09/29/2001 Tdap 09/07/2022,01/31/2011 Zoster (Shingrix-RZV, recombinant) 12/01/2018, Zoster (Zostavax-ZVL, live) 08/19/2007 Family History Medical History Relation Name Comments Other Brother 2 Ray Increased PSA: taking med 01/2011 Cancer Father Rio Lung Cancer-colon Neg. 1 Cancer-prostate Neg. 2 Anesthesia Problem Neg. 3 Blood Disease No Family History Relation Name Status Comments Brother 1 Holger (Age 65) DVT/ Pulm Embollus Brother 2 Ray Alive Father Rio (Age 60) Lung Ca Mother Cynthia (Age 96) Lived on h er own until 94! Neg. 1 Neg. 2 Neg. 3 Sister 1 Henny Alive Sister 2 Isauro Alive Social History Tobacco Use Types Packs/Day Years Used Date Smoking Tobacco: Former Cigarettes 1 7.5 0 08/05/1961 - 02/03/1969 Smokeless Tobacco: Never Tobacco Cessation:Counseling Given: No Alcohol Use Standard Drinks/Week Comments Not Currently 0 (1 standard drink = 0.6 oz pur e alcohol) rare, 1 drink every month PHQ-2 Answer Date Recorded PHQ-2 TOTAL SCORE 0 01/09/2023 Social Connections Answer Date Recorded Frequency of Communication with Friends and Fami ly Not on file 06/11/2023 Financial Resource Strain Answer Date R ecorded Difficulty of Paying Living Expenses 3 06/05/2022 Difficulty of Paying Living Expenses Not on file 06/05/2022 Food Insecurity Answer Date Recorded Worried About Running Out of Food in the Last Ye ar 1 06/05/2022 Transportation Needs Answer Date Record ed Lack of Transportation (Medical) 1 06/05/2022 Housing Stability Answer Date Recorded Unable to Pay for Housing in the Last Year 1 06/05/2022 Sex and Gender Information Value Date Recorded Sex Assigned at Not on file Gender Identity Not on file Sexual Orientation Not on file Obstetrics History Last Filed Vital Signs Vital Sign Reading Time Taken Comments Blood Pressure 124/72 04/22/2023 11:03 AM CDT Pulse 79 04/22/2023 11:03 AM CDT Temperature 37.1 ??C (98.7 ??F) 2019 1:18 PM CD T Respiratory Rate 16 11/02/2019 11:4 3 AM CDT Oxygen Saturation 98% 04/22/2023 11: 03 AM CDT Inhaled Oxygen Concentration - - Weight 114.9 kg (253 lb 3.2 oz) 024 11:03 AM CDT Height 175.3 cm (5' 9) 01/09/2023 9:17 AM SHUTTLE PREPARATION SUPERVISOR Body Mass Index 37.39 01/09/2023 9:17 AM SHUTTLE PREPARATION SUPERVISOR Plan of Treatment Health Maintenance Due Date Last Done Comments COVID-19 vaccine series ( season) 2023 01/09/2023, 08/15/2022, 10/24/2021, Additional history exists Influenza for age 65+ 10/12/2023 01/09/2023 , 10/24/2021, 11/07/2020, Additional history exists BMI (ht and wt on same day) for age 18+ 01/10/2024 01/09/2023, 05/28/2022, 01/25/2022, Additional history exists Depression screening for age 12+ 01/10/2024 01/09/2023, 12/31/2021, 11/14/2020, Additional history exists Medicare Wellness for age 65+ 01/10/2024, 12/31/2021, 11/14/2020, Additional history exists Tetanus booster 09/07/2032 09/07/2022, 01/11, 09/29/2001 Zoster (shingles) series for age 50+ Completed 12/01/2018, 09/30/2018, 08/19/2007 Pneumococcal series for age 65+ Completed 08/15/2022, 01/14/2014, 01/29/2013, Additional history exists Tdap Completed 09/07/2022, 01/31/2011 Medical Devices Implanted Type Area Story Editor Device Identifier Shelf Expiration Date Model / Serial / Lot [id number] - [id number] Implanted:Qty: 2 on 07/31/2017 by Anatoly Munoz MD at [facility] Bilateral: Ear 12/12/2021 [id number] / / [id number] Description:BEHIND EAR BRENDA 400 IMPLANT 4MM W ABUTMENT 12MM Advance Directives Documents on File Type Date Recorded Patient Biochemist Expl anation Healthcare Directive 12/17/2011 3:57 PM SHAILESH BROWNE POWER OF [employer] FOR [employer], [facility], 02/23/2009 Healthcare Directive 10/02/2011 12:00 AM A DVANCE DIRECTIVE * Full Code (Latest Code Status on File) Date Activated Date Inactivated Comments 01/21/2014 9:44 AM 01/21/2014 4:49 PM Care Teams Fire Prevention Inspector Relationship Specialty Start Date End Date Jeremiah Duran MD [address] [place] [address] PCP - General Family Practice 10/06/12 Anatoly Haas MD Surgery - Orthopedics 01/31/11 Jackelin Rausch AuD Provider Audiology 10/17/11 Curt Porras [address] [place] [id number] Industrial Analyst 01/29/12
--- OUTSIDE RECORDS SUMMARY | 2023-10-09 06:15 | XMS_ITS | Referral Summary ---
Author Organization [facility] Address [address] [place] [address]. [place] [address] Care Team Providers Care Lacquer Machine Feeder Name Role Phone No Ref-Primary, Physician Primary [...] 11/01/2021 7:54 AM CDT Plan of Treatment Not on file Care Teams Lacquer Machine Feeder Relationship Specialty Start Date End Date No Ref-Primary, Physician PCP - General 08/25/23
--- OUTSIDE RECORDS SUMMARY | 2023-10-09 06:16 | XMS_ITS | Data Portability ---
Author Organization [facility], [facility] Address [address] [place] [address] Care Team Providers Care It Field Technician Name Role Phone JEREMIAH AVELAR Primary Care Provider Assessment Encounter Date Assessment Date Assessment LastModified by Organization Details LastModified Time 11/15/2021 11/15/2021 Pt here for TOV/Fill and Pull today. LK Not available 11/15/2021 09:45:07 12/04/2021 12/04/2021 81 y/o male, s/p laser turp. PRESENTLY VOIDING WELL. PVR 31CC. ORDERED AND REVIEWED PVR PLAN RTC 1 YR PVR, U/A Not available 12/04/2021 11:58:02 04/24/2022 04/24/2022 81 y/o male, HX BPH, S/P LASER TURP 11/01 , . U/A TRACE BLOOD. PVR 8CC. C.L.L. IN REMISSION. ORDERED AND REVIEWED U/A, PVR PLAN RTC 6 MO PVR U/A, Not available 04/24/2022 11:09:39 10/30/2022 10/30/2022 82 Y/O MALE, HX FOR GROSS HEMATURIA IN MID SEPTEMBER, ASOCIATED BURNING. GRADUALLY CLEARED. U/A TODAY POS FOR UTI. PVR 77CC. S/P LASER TURP X 2. LAST 11/01. ORDERED, REVIEWED U/A, PVR INTERVIEW WITH , DAUGHTER PRESENT PLAN [facility], SAMPLES SEPTRA DS BID. WILL CALL U/C LATER THIS WEEK. RTC 2-3 WEEKS FOR U/A POSSIBLE CYSTO. Not available 10/30/2022 15:16:24 11/13/2022 11/13/2022 82 Y/O MALE, HX BPH, S/P LASER TURP. RECENT UTI ECOLI PEARSON SENSITIVE. U/A NEG POS BLOOD. STILL WITH MILD DYSURIA. HX C.L.L. BUT IN REMISSION AND NO LONGER TAKING MEDS. ORDERED, REVIEWED U/A PLAN KEFLEX 250 MG DAY X 30 DAYS. RTC IF SX.S PERSIST. Not available 11/13/2022 16:54:12 Plan of Treatment Reminders Order Date Submit Date Provider Last Modified By Organization Details Last Modified Time Details Appointments None recorded. Lab urinalysis, dipstick 2022 023 [facility], [address], [place], [address], 10:58:41 urinalysis, dipstick 2022 023 [facility], [address], [place], [address], 15:05:41 culture, urine [address] [facility], [address], [address], [place], [address], 11:23:57 urinalysis, dipstick 2022 023 [facility], [address], [place], [address], 16:44:51 Referral None recorded. Procedures None recorded. Surgeries None recorded. Imaging None recorded. Medication Orders cephalexin 250 mg capsule 2022 023 [id number], [address] [place], [place], [id number], 16:52:05 Patient TargetsNo targets recorded. Patient Instructions Encounter Date Encounter Id Patient Instructions Last Modified By Organization Details Last Modified Time 11/15/2021 [id number] If able to void on his own by 1:30pm, does not have to come back in. RTC 12/04/21 for post-op visit with Dr Reynoso. IBETH Not available 11/15/2021 09:46:37 Reason for Referral None Reported. Results Created Date Observation Date Name Description Value Unit Range Abnormal Flag Note LastModifiedBy Organization Detail LastModifiedTime 04/25/1904/24/2022 urina lysis , dipst ick pH-Status 5.5 Not Available [facility] [address], [place], [address], 04/24/2022 10:58:22 04/25/19 23 04/24/2022 urina lysis , dipst ick Blood-Status Modera te Not Available [facility] [address], [place], [address], 04/24/2022 10:58:22 04/25/19 23 04/24/2022 urina lysis , dipst ick Leuko-Status Small Not Available [facility] [address], [place], [address], 04/24/2022 10:58:22 10/31/19 23 10/30/2022 URINE CULTU RE final report MICROB IOLOGY RESULT S abnormal SOURC E Void KNOWN ALLER GIES PCN TREAT MENT NA MEDIA PLATE D AT: Media plate d on 2022 @ 5:29 PM COLON Y COUNT >100, 000 cfu/m l RESUL T Esche lon a coli (Isol ate 1) Sensi tivit y Inessa sis [place] te 1 ----- ----- ----- ----- ----- ----- ----- - AMOX/ K CLAV <=8/4 *S AMP/S ULBAC MONZON <=8/4 *S AMPIC ILLIN <=8*S AZTRE ONAM <=4*S CEFAZ JENIFFER <=2*S CEFTA ZIDIM E <=1*S CEFTR IAXON E <=1*S CEFUR OXIME <=4*S CIPRO FLOXA LISA <=1*S LEVOF LOXAC IN <=2*S NITRO FURAN TOIN <=32* S PIP/T AZO <=16* S TETRA CYCLI NE <=4*S TRIME TH/YATES LFA <=2/3 8*S TRIME THOPR IM <=8*S Orga nisms that are susce ptibl e to tetra cycli ne are gener ally also susce ptibl e to doxyc yclin e and minoc yclin e. Any subst ituti on of drugs which have not been teste d for sensi tivit y shoul d be consi dered based on appro alissa usage of the drugs . Infor matio n on doxyc yclin e and minoc yclin e can be found in the Physi conrad' s Desk [facility]. S= Susce ptibl e;I= Inter media te;R= Resis tant; ESBL= Resis tance due to confi rmed ESBL This lab resul t is being provi ded to you and your provi cristi at the same time in compl iance with the Centu ry Cures Act. Your provi cristi may not have had time to revie w and make recom menda tions based on the resul t. Pleas e allow up to one week for provi cristi revie w. Not Available [facility] [address], [place], [address], 11/01/2022 11:23:57 10/31/1910/30/2022 urina lysis , dipst ick Color-Status Yellow Not Available [facility] [address], [place], [address], 10/30/2022 14:57:53 10/31/1910/30/2022 urina lysis , dipst ick Protein-Stat us >=9.0 Not Available [facility] [address], [place], [address], 10/30/2022 14:57:53 10/31/19 23 10/30/2022 urina lysis , dipst ick Nitrates-Sta tus positi ve Not Available [facility] [address], [place], [address], 10/30/2022 14:57:53 10/31/19 23 10/30/2022 urina lysis , dipst ick Blood-Status Large Not Available [facility] [address], [place], [address], 10/30/2022 14:57:53 10/31/19 23 10/30/2022 urina lysis , dipst ick Leuko-Status Modera te Not Available [facility] [address], [place], [address], 10/30/2022 14:57:53 10/31/19 23 10/30/2022 urina lysis , dipst ick Specimen Type Voided Not Available [facility] [address], [place], [address], 10/30/2022 14:57:53 11/14/1911/13/2022 urina lysis , dipst ick Color-Status Yellow Not Available [facility] [address], [place], [address], 11/13/2022 16:38:42 11/14/1911/13/2022 urina lysis , dipst ick Clarity-Stat us Clear Not Available [facility] [address], [place], [address], 11/13/2022 16:38:42 11/14/19 23 11/13/2022 urina lysis , dipst ick Protein-Stat us >=9.0 Not Available [facility] [address], [place], [address], 11/13/2022 16:38:42 11/14/1911/13/2022 urina lysis , dipst ick Blood-Status Modera te Not Available [facility] [address], [place], [address], 11/13/2022 16:38:42 12/07/19 22 12/04/2021 bladd er scan (PROC ) No observ ation record ed. BARCODE Not Available 2021 12:15:58 04/30/19 23 04/24/2022 bladd er scan (PROC ) No observ ation record ed. BARCODE Not Available 2022 16:47:43 Result Notes None recorded. Problems Name Problem SNOMED Code Status Onset Date Resolution Date Notes Provider Name and Address Organization Details Recorded Time Retention of urine 892548831 Active 2013 788.20 : URINARY RETENTION Not Available [facility] 01:54:44 [place] hematuria 578317240 Active 2022 George Reynoso MD [address] [place] [address], [address] , [facility] 3 15:16:39 Acute cystitis 42475752 Active 2022 George Reynoso MD [address] [place] [address] , [facility] 3 15:17:02 Urinary tract infectiou s disease 92441975 Active 2022 George Reynoso MD [address] [place] [address], [address] [place] [address] , [facility] 3 16:38:39 Benign prostatic hyperplas ia without outflow obstructi on 728511620 Active 2022 George Reynoso MD [address] [place] [address] , [facility] 3 16:54:27 Problem Notes None recorded. Procedures Surgical History Date Name Laterality Status Provider Name and Address Organization Details Recorded Time 10/31/19 Bladder Scan completed George Reynoso MD [address] [place] [address], [address], [facility] 10/30/2022 14:57:50 04/25/19 23 Bladder Scan completed George Reynoso MD [address] [place] [address],[address], [place], [address], [facility] 04/24/2022 11:00:01 12/05/19 22 Bladder Scan completed George Reynoso MD [address] [place] [address],[address], [place] [phone], [facility] 12/04/2021 11:53:38 11/16/19 22 Fill and Pull/Voiding Trial/TOV completed Homa Corona null, [facility] 11/15/2021 09:44:24 11/07/19 22 Fill and Pull/Voiding Trial/TOV completed Homa Corona null, [facility] 11/06/2021 12:24:34 09/22/19 22 Teach Self Cath - Male completed Gama Hough null, [facility] 09/21/2021 10:26:23 09/22/19 22 Fill and Pull/Voiding Trial/TOV completed Gama pimentel, [facility] 09/21/2021 10:25:29 08/23/19 22 CystoscopyMale completed George Reynoso MD [address] [place] [address],[address], [place], [address], [facility] 08/22/2021 16:45:30 vasectomy completed Eli Luther null, [facility] 08/22/2021 15:36:10 Prostate Surgery completed Eli Luther null, [facility] 08/22/2021 15:36:34 Orthopedic Surgery completed Jaimie Luther null, [facility] 08/22/2021 15:36:40 Hernia Repair completed Eli pimentel, [facility] 08/22/2021 15:36:46 Cataract Surgery completed Eli Luther null, [facility] 08/22/2021 15:36:57 Imaging Results Imaging Date Name Status LastModified by Organiz ation Details LastModified Time 12/04/2021 bladder scan (PROC) completed BARCODE Information not available 12/06/2021 12:15:58 04/24/2022 bladder scan (PROC) completed BARCODE Information not available 04/29/2022 16:47:43 Procedure Notes None recorded. Medical Equipment None Reported. Allergies Allergen ID Allergen Name Allergen Category Reaction Reaction Severity Criticality Documentation Date Start Date Code Code System Note Provider Name and Address Organization Details Recorded Time 685483 Medicinal product containin g penicilli n and acting as antibacte rial agent (product) medicatio n anaphylax is Not available Not available 08/22/2021 27412 05 SNOMED George Reynoso MD [address] [place] [address], [address], [facility] 2 15:44:51 724190 acetamino phen / oxycodone medicatio n Not available Not available Not available 08/22/2021 31021 3 RxNorm George Reynoso MD [address] [place] [address], [address], [facility] 2 15:44:58 Medications Name Sig Start Date Stop Date Status Note LastModified by Organization Details LastModified Time atorvastati n 40 mg tablet active Not Available Not Available Not Available clindamycin HCl 300 mg capsule TAKE 1 CAPSULE BY MOUTH FOUR TIMES DAILY UNTIL GONE 10/30 completed Not Available Not Available Not Available tolterodine ER 4 mg capsule,ext ended release 24 hr TAKE 1 CAPSULE BY MOUTH EVERY DAY active Not Available Not Available No t Available cephalexin 250 mg capsule TAKE 1 CAPSULE BY MOUTH EVERY DAY DIRECTED active Not Available Not Available No t Available hydrocodone 5 mg-acetamin ophen 325 mg tablet TAKE 1 TABLET BY MOUTH EVERY 4-6 HR NEEDED FOR PAIN IF NOT RELIEVED WITH NSAIDS 10/30 completed Not Available Not Available Not Available prednisone 20 mg tablet TAKE 2 TABLETS BY MOUTH DAILY FOR 5 DAYS 10/30 completed Not Available Not Available Not Available clindamycin HCl 150 mg capsule TAKE 4 CAPSULES BY MOUTH AT ONE TIME AN HOUR BEFORE DENTAL APPT active Not Available Not Available No t Available fexofenadin e 180 mg tablet active Not Available Not Available Not Available ciprofloxac in 500 mg tablet TAKE 1 TABLET BY MOUTH TWICE DAILY FOR 7 DAYS 10/30 completed Not Available Not Available Not Available sulfamethox azole 800 mg-trimetho prim 160 mg tablet TAKE 1 TABLET BY MOUTH TWICE DAILY FOR 7 DAYS 10/30 completed Not Available Not Available Not Available tramadol 50 mg tablet TAKE 1 TABLET BY MOUTH EVERY 6 HOURS NEEDED FOR SEVERE PAIN 10/30 completed Not Available Not Available Not Available tamsulosin 0.4 mg capsule TAKE 1 CAPSULE BY MOUTH EVERY DAY DIRECTED 10/30 completed Not Available Not Available Not Available cephalexin 500 mg capsule TAKE 1 CAPSULE BY MOUTH TWICE DAILY FOR 7 DAYS active Not Available Not Available No t Available omeprazole 20 mg capsule,del ayed release active Not Available Not Available Not Available furosemide 20 mg tablet 10/30 completed Not Available Not Available Not Available potassium chloride ER 10 mEq tablet,exte nded release(par t/cryst) 10/30 completed Not Available Not Available Not Available nitrofurant oin monohydrate /macrocryst als 100 mg capsule active Not Available Not Available Not Available chlorhexidi ne gluconate 0.12 % mouthwash SWISH AND EXPECTORA TE 15 TO 30 ML FOUR TIMES A DAY. NOTHING BY MOUTH FOR 30 MINUTES AFTER USE. active Not Available Not Available No t Available Gavilyte-C 240 gram-22.72 gram-6.72 gram-5.84 gram oral solution active Not Available Not Available Not Available Imbruvica 140 mg capsule 10/30 completed Not Available Not Available Not Available Vitals Date Recorded Body height Body mass index (BMI) Body weight Provider Name and Address Organization Details Last Updated DateTime 12/04/2021 177.8 cm 37.3 kg/m2 754951.02 g George Reynoso MD [address], [place], [address], [facility] 12/04/2021 11:52:37 Date Recorded Body height Body mass index (BMI) Body weight Provider Name and Address Organization Details Last Updated DateTime 04/24/2022 177.8 cm 37.3 kg/m2 609119.02 g Keyon Hernández [facility] 04/24/2022 10:55:17 Date Recorded Body height Body mass index (BMI) Body weight Provider Name and Address Organization Details Last Updated DateTime 10/30/2022 177.8 cm 37.3 kg/m2 509198.02 g George Reynoso MD [address] [facility] [address], [place], [address] 10/30/2022 14:57:07 Date Recorded Body height Provider Name an d Address Organization Details Last Updated DateTime 11/13/2022 177.8 cm Larry Shrestha [address] [facility] [address], [place], [address] 11/13/2022 16:37:49 Social History Question Answer Notes LastModified by Organizat ion Details LastModified Time Tobacco Smoking Status Former Smoker Eli Homa pimentel, [facility] 08/22/2021 15:38:28 What Is Your Level Of Alcohol Consumption? Occasional Information not available 08/22/2021 What Is Your Level Of Caffeine Consumption? Heavy Information not available 08/22/2021 When Did You Quit Smoking? 16+yearssincel astcigarette Information not available 08/22/2021 Race WHITE Information no t available 08/22/2021 Preferred Language Citizen Of [place] Information not available 08/22/2021 Recreational Drug Use No Information not available 08/22/2021 Could You Be ? No Information not available 08/22/2021 What Was The Date Of Your Most Recent Tobacco Screening? 10/30/2022 Information not available 10/30/2022 What Is Your Relationship Status? Information not available 08/22/2021 Do You Use Any Illicit Or Recreational Drugs? No Information not available 08/22/2021 Has Tobacco Cessation Counseling Been Provided? No Information not available 08/22/2021 Do You Or Have You Ever Used Any Other Forms Of Tobacco Or Nicotine? No Information not available 08/22/2021 Sex: Unknown Functional Status None recorded. Mental Status None recorded. Family History Relationship Description Onset Age of this Age Resolved Age Notes Father No current problems or disability Mother No current problems or disability Medical History Condition Response Sexually Transmitted Infection N Diabetes N Bleeding Disorder N High Blood Pressure Y Kidney Stones N Cancer Y Depression N Lung Disease N High Cholesterol N GERD/Acid Reflux Y Heart Disease N Past Encounters Encounter ID Performer Location Encounter Start Date Encounter Closed Date Diagnosis/Indication Diagnosis SNOMED-CT Code Diagnosis ICD10 Code [id number] MD MANDY [facility] [address] [place] [address] 08/22/2021 15:14:39 08/24/2021 14:15:27 Kidney stone 46849454 N20.0 [id number] MD [facility] [address] [place] [address] 09/05/2021 12:07:59 09/07/2021 16:36:45 Benign prostatic hyperplasia with outflow obstruction 942688904 N40.1 [id number] Homa Corona [facility] [address] [place] [address] 09/17/2021 14:12:52 09/21/2021 03:52:53 [id number] MD Ba Shrestha [address] [place] [address] 09/21/2021 09:37:22 09/26/2021 10:53:32 Retention of urine 250899686 R33.9 [id number] MD MANDY [facility] [address] [place] [address] 11/06/2021 11:44:04 11/09/2021 16:02:28 [id number] [facility]oma [facility] [address] [place] [address] 11/15/2021 09:14:33 11/20/2021 16:20:19 Postoperative retention of urine 379977754 R33.8 [id number] MD MANDY [facility] [address] [place] [address] 12/04/2021 11:41:41 12/07/2021 11:07:47 Benign prostatic hyperplasia with outflow obstruction 130073407 N40.1 [id number] MD Ba Shrestha [address] [place] [address] 04/24/2022 10:29:13 04/27/2022 15:12:34 Retention of urine 509650258 R33.9 Benign pro static hyperplasia with outflow obstruction 004382350 N40.1 Microscopic hematuria 19 2154184 R31.29 [id number] George Reynoso MD [facility] [address] [place] [address] 10/30/2022 14:43:52 11/09/2022 15:08:48 Retention of urine 210697044 R33.9 Acute cystitis 59426796 N30.01 [place] hematuria 53752937 5 R31.0 [id number] George Reynoso MD [facility] [address] [place] [address] 11/13/2022 16:29:49 11/25/2022 14:29:15 Urinary tract infectious disease 00172356 N39.0 Acute cystitis 14558893 N30.01 Benign pro static hyperplasia without outflow obstruction 726198605 N40.0 Health Concerns Section Related Observation LastModified by Organization Detai ls LastModified Time None Recorded Concern Status LastModified by Organization Details LastModified Time None Recorded Advance Directives Directive None Recorded Payers Encounter Date Sequence Insurance Name Policy Number Policy Hernandez Covered Member ID Hernandez Member ID Guarantor Name 11/15/2021 1 [place] [id number] Jeremiah Pankaj Worthy [id number] Jeremiah Pankaj Worthy 12/04/2021 1 [place] [id number] Jeremiah Pankaj Worthy [id number] Jeremiah Pankaj Worthy 04/24/2022 1 [place] [id number] Jeremiah Pankaj Worthy [id number] Jeremiah Pankaj Worthy 10/30/2022 1 [place] [id number] Jeremiah Pankaj Worthy [id number] Jeremiah Pankaj Worthy 11/13/2022 1 [place] [id number] Jeremiah Pankaj Worthy [id number] Jeremiah Pankaj Deacon Notes Date Note Type Note Provider Name and Address Organization Details Recorded Time 12/04/2021 text/html HPI Notes: 80 YO M, REFERRED TODAY FOR POST OP TURP. 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 FORMER SMOKER. HE TAKES IMBRUVICA FOR CLL. DR BERNARDO DID A GREENLIGHT LASER 10 YRS AGO. . INTERMITTENT FLOW.u/a large blood. 1 MONTH OUT FROM TURP, DOING WELL. George Reynoso MD [address] [place] [address],[address], [place], [address], [facility] 12/04/2021 11:58:24 04/24/2022 text/html HPI Notes: 81 YO M, REFERRED TODAY FOR POST OP TURP. 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 FORMER SMOKER. HE TAKES IMBRUVICA FOR CLL. DR BERNARDO DID A GREENLIGHT LASER 10 YRS AGO. . INTERMITTENT FLOW.u/a large blood. George Reynoso MD [address] [place] [address],[address], [place], [address], [facility] 04/24/2022 11:10:18 10/30/2022 text/html HPI Notes: 81 YO M, REFERRED TODAY FOR POST OP TURP. 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 FORMER SMOKER. HE TAKES IMBRUVICA FOR CLL. DR BERNARDO DID A GREENLIGHT LASER 10 YRS AGO. . INTERMITTENT FLOW.u/a large blood. HAD LASER TURP 11/01. GOOD FLOW, PVR 77CC. U/A POS. SUSPECT UTI.U/A YELLOW. George Reynoso MD [address] [place] [address],[address], [place], [address], [facility] 10/30/2022 15:17:06 11/13/2022 text/html HPI Notes: 82 YO M, REFERRED TODAY FOR POST OP TURP. 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 FORMER SMOKER. HE TAKES IMBRUVICA FOR CLL. DR BERNARDO DID A GREENLIGHT LASER 10 YRS AGO. . INTERMITTENT FLOW.u/a large blood. HAD LASER TURP 11/01. GOOD FLOW, PVR 77CC. U/A POS. SUSPECT UTI UC SHOWED INFECTION, ABX GIVEN ecoli. pearson sensitive HERE FOR RECHECK U/A NEG, POS BLOOD. George Reynoso MD [address] [facility],[address], [place], [address], [facility] 11/13/2022 17:03:17
[2023-10-09] MEDS: BUPIVACAINE 0.5% 30 ML INJECTION (07:15)
[2023-10-09] MEDS: lidocaine HCL 2 % MULTIDOSE 20 ML VIAL INJECTION (07:15)
--- NOTE | 2023-10-09 07:34 | PM.ORPRC ---
Procedure Note Date of procedure: 10/09/23 Procedure: Preop diagnosis: Left hand ring finger stenosing tenosynovitis Postop diagnosis: Left hand ring finger stenosing tenosynovitis Procedure: Left hand ring finger A1 derick release Anesthesia: Local Surgeon: Yvon Batres MD executive assistant to general counsel: TARIQ Booth EBL: 1 mL Complications: None Specimens: None Drains: None Preoperative antibiotics: None Indications: The patient has a history of left upper extremity ring finger painful catching and locking. Despite appropriate non operative management including flexor tendon sheath corticosteroid injections they continue to have symptoms. Operative intervention was recommended. The risks, benefits alternatives and expected outcomes were discussed in detail. These included but were not limited to: Infection, bleeding, injury to blood vessel or nerve, venous thromboembolism. All questions were answered to their satisfaction. The patient was placed supine on the operating room table. Local anesthesia was established with 0.5% Marcaine with epinephrine and 2% lidocaine with epinephrine. The hand was prepped and draped in usual sterile fashion. A transverse incision was made centered over the base of the ring finger in the distal palmar crease. Subcutaneous dissection was taken through the palmar fascia to the flexor tendons with the tenotomy scissors. The A1 derick was released with the 15 blade and tenotomy scissors. Active flexion and extension of the finger shows no catching or locking, no bowstringing of the flexor tendons. The wound was closed with interrupted nylon sutures. A dry dressing was applied. Sponge and needle counts were correct x 2. The patient tolerated the procedure well, there were no apparent complications. They were sent to same day surgery in satisfactory condition. Plan: Use of the hand as tolerates. Discontinue the intraoperative dressing on postoperative day 3 and may get the wound wet as tolerates. Follow up in the office in 2 weeks for a wound check and suture removal.
== END 2023-10-09 07:58 | disposition home or self-care (01) ==
LOC: OR 06:13
PROVIDERS: PCP Family Medicine; Visit Provider Orthopaedic Surgery
PROC: (CPT 26055; principal; 2023-10-09 07:15)
DX: M65.342 Trigger finger, left ring finger (principal); M65.842 Other synovitis and tenosynovitis, left hand
CPT/HCPCS: 26055; J0665

== ENCOUNTER 2024-02-18 09:00 | Outpatient (RCR) | payer MEDICARE, BC, SELFPAY ==
[2023-11-11 09:50] LABS: Basophils Absolute Auto 0.06 K/uL (0.00-0.30); Basophils Percent Auto 0.9 % (0.0-3.0); Eosinophils Absolute Auto 0.17 K/uL (0.00-0.50); Eosinophils Percent Auto 2.6 % (0.0-7.0); Hematocrit 42.1 % (37.0-53.0); Hemoglobin* 12.3 gm/dL (13.5-17.5); Lymphocytes Percent Auto 43.6 % (20-44); Mean Corpuscular HGB Conc 29 gm/dL (32-36); Mean Corpuscular Hemoglobin 24 pg (26-34); Mean Corpuscular Volume 82 fL (80-100); Monocytes Percent Auto 9.5 % (0.0-11.0); Neutrophils Absolute Auto 2.89 K/uL (1.7-7.0); Neutrophils Percent Auto 43.4 % (42.0-72.0); Platelet Count* 187 K/uL (140-440); RDW Coefficient of Variation % 15.7 % (11.5-15.5); Red Blood Count 5.15 m/uL (4.30-5.90); White Blood Count* 6.65 K/uL (4.50-11.00)
[2023-11-11 09:56] LABS: Slide Review Reflex No
[2023-11-11 10:07] LABS: Albumin* 4.5 g/dL (3.3-5.0)
[2023-11-11 10:08] LABS: Chloride* 108 mmol/L (96-114); Potassium* 4.2 mmol/L (3.6-5.1); Sodium* 139 mmol/L (135-149)
[2023-11-11 10:10] LABS: Alkaline Phosphatase* 108 U/L (40-150); Anion Gap 7 mEq/L (7-15); Aspartate Amino Transferase* 23 U/L (12-35); Bilirubin Total* 0.8 mg/dL (0.1-1.5); Blood Urea Nitrogen* 17 mg/dL (7-30); Carbon Dioxide* 24 mmol/L (20-32); Creatinine* 1.2 mg/dL (0.5-1.5); Estimated Glomerular Filt Rate 60 ml/min; Total Protein* 7.3 g/dL (6.0-8.3)
[2023-11-11 10:11] LABS: Alanine Aminotransferase* 16 U/L (4-50); Calcium* 9.4 mg/dL (8.4-10.6); Glucose* 102 mg/dL (60-115); Lactate Dehydrogenase* 151 U/L (120-246)
--- NOTE | 2023-11-11 10:46 | ONC.NURNOTE ---
Lab results reviewed and called to Edilberto- noted as stable Dr Polk to review next appts with lab and provider planned for 3 mths
[2024-02-18 09:48] LABS: Basophils Absolute Auto 0.05 K/uL (0.00-0.30); Basophils Percent Auto 0.6 % (0.0-3.0); Eosinophils Absolute Auto 0.08 K/uL (0.00-0.50); Eosinophils Percent Auto 0.9 % (0.0-7.0); Hematocrit 41.1 % (37.0-53.0); Hemoglobin* 12.2 gm/dL (13.5-17.5); Immature Granulocytes Abs Auto 0.01 K/uL (0.00-0.30); Immature Granulocytes Pct Auto 0.1 %; Lymphocytes Absolute Auto 2.66 K/uL (0.90-2.90); Lymphocytes Percent Auto 29.3 % (20-44); Mean Corpuscular HGB Conc 30 gm/dL (32-36); Mean Corpuscular Hemoglobin 24 pg (26-34); Mean Corpuscular Volume 82 fL (80-100); Monocytes Percent Auto 7.5 % (0.0-11.0); Neutrophils Percent Auto 61.6 % (42.0-72.0); Platelet Count* 222 K/uL (140-440); RDW Coefficient of Variation % 15.9 % (11.5-15.5); White Blood Count* 9.08 K/uL (4.50-11.00)
[2024-02-18 09:53] LABS: Slide Review Reflex No
[2024-02-18 10:00] LABS: Albumin* 4.3 g/dL (3.3-5.0); Chloride* 109 mmol/L (96-114); Potassium* 4.3 mmol/L (3.6-5.1); Sodium* 142 mmol/L (135-149)
[2024-02-18 10:02] LABS: Creatinine* 1.3 mg/dL (0.5-1.5); Est. Creatinine Clearance* 45.24; Estimated Glomerular Filt Rate 55 ml/min
[2024-02-18 10:03] LABS: Alanine Aminotransferase* 16 U/L (4-50); Alkaline Phosphatase* 88 U/L (40-150); Anion Gap 8 mEq/L (7-15); Aspartate Amino Transferase* 19 U/L (12-35); Bilirubin Total* 0.7 mg/dL (0.1-1.5); Blood Urea Nitrogen* 23 mg/dL (7-30); Calcium* 9.4 mg/dL (8.4-10.6); Carbon Dioxide* 25 mmol/L (20-32); Glucose* 109 mg/dL (60-115); Lactate Dehydrogenase* 135 U/L (120-246); Total Protein* 7.1 g/dL (6.0-8.3)
[2024-02-18 10:53] LABS: Ferritin* 8.5 ng/mL (17.9-464.0)
--- NOTE | 2024-02-26 11:06 | ONC.NURNOTE ---
Ferritin level low, Dr. Polk requested pt to bring in stool sample for occult blood. Pt refused, would like to start oral iron. Script for oral iron sent to pt's pharmacy to start. Pt aware.
== END 2024-05-09 23:59 | disposition home or self-care (01) ==
LOC: CCIC 09:00
PROVIDERS: PCP Family Medicine; Referring Provider Family Medicine; Visit Provider Internal Medicine Hematology & Oncology
DX: C91.10 Chronic lymphocytic leukemia of B-cell type not having achieved remission (principal); K29.01 Acute gastritis with bleeding; D50.9 Iron deficiency anemia, unspecified; R60.9 Edema, unspecified
CPT/HCPCS: 36415; 80053; 82728; 83615; 85025; 99213; 99214; G0463

== ENCOUNTER 2024-11-02 11:00 | Outpatient (RCR) | payer MEDICARE, BC, SELFPAY ==
[2024-05-18 11:47] LABS: Hematocrit* 46.7 % (37.0-53.0); Hemoglobin* 14.4 gm/dL (13.5-17.5); Immature Granulocytes Abs Auto 0.00 K/uL (0.00-0.30); Immature Granulocytes Pct Auto 0.0 %; Lymphocytes Absolute Auto 3.18 K/uL (0.90-2.90); Mean Corpuscular HGB Conc 31 gm/dL (32-36); Mean Corpuscular Hemoglobin 27 pg (26-34); Mean Corpuscular Volume 88 fL (80-100); RDW Coefficient of Variation % 15.6 % (11.5-15.5); Red Blood Count* 5.29 m/uL (4.30-5.90); White Blood Count* 7.61 K/uL (4.50-11.00)
[2024-05-18 11:49] LABS: Slide Review Reflex No
[2024-05-18 12:01] LABS: Albumin* 4.5 g/dL (3.3-5.0); Chloride* 106 mmol/L (96-114); Potassium* 4.2 mmol/L (3.6-5.1); Sodium* 139 mmol/L (135-149)
[2024-05-18 12:03] LABS: Anion Gap 5 mEq/L (7-15); Bilirubin Total* 0.9 mg/dL (0.1-1.5); Blood Urea Nitrogen* 18 mg/dL (7-30); Carbon Dioxide* 28 mmol/L (20-32); Creatinine* 1.2 mg/dL (0.5-1.5); Estimated Glomerular Filt Rate 60 ml/min
[2024-05-18 12:04] LABS: Alanine Aminotransferase* 24 U/L (4-50); Alkaline Phosphatase* 93 U/L (40-150); Aspartate Amino Transferase* 28 U/L (12-35); Calcium* 9.8 mg/dL (8.4-10.6); Glucose* 93 mg/dL (60-115); Total Protein* 7.4 g/dL (6.0-8.3)
[2024-08-03 12:59] LABS: Albumin* 4.1 g/dL (3.3-5.0); Chloride* 104 mmol/L (96-114); Potassium* 4.1 mmol/L (3.6-5.1); Sodium* 137 mmol/L (135-149)
[2024-08-03 13:01] LABS: Alanine Aminotransferase* 18 U/L (4-50); Aspartate Amino Transferase* 26 U/L (12-35); Blood Urea Nitrogen* 14 mg/dL (7-30); Creatinine* 1.4 mg/dL (0.5-1.5); Estimated Glomerular Filt Rate 50 ml/min
[2024-08-03 13:02] LABS: Alkaline Phosphatase* 163 U/L (40-150); Anion Gap 8 mEq/L (7-15); Bilirubin Total* 1.5 mg/dL (0.1-1.5); Calcium* 9.8 mg/dL (8.4-10.6); Carbon Dioxide* 25 mmol/L (20-32); Glucose* 110 mg/dL (60-115); Total Protein* 7.1 g/dL (6.0-8.3)
[2024-08-03 13:52] LABS: Hematocrit* 47.1 % (37.0-53.0); Hemoglobin* 14.8 gm/dL (13.5-17.5); Immature Granulocytes Abs Auto 0.01 K/uL (0.00-0.30); Immature Granulocytes Pct Auto 0.1 %; Lymphocytes Absolute Auto 2.20 K/uL (0.90-2.90); Mean Corpuscular HGB Conc 31 gm/dL (32-36); Mean Corpuscular Hemoglobin 28 pg (26-34); Mean Corpuscular Volume 90 fL (80-100); RDW Coefficient of Variation % 14.9 % (11.5-15.5); Red Blood Count* 5.22 m/uL (4.30-5.90); White Blood Count* 8.85 K/uL (4.50-11.00)
[2024-08-03 13:56] LABS: Slide Review Reflex No
[2024-11-02 10:43] LABS: Hematocrit* 45.2 % (37.0-53.0); Hemoglobin* 14.1 gm/dL (13.5-17.5); Immature Granulocytes Abs Auto 0.01 K/uL (0.00-0.30); Immature Granulocytes Pct Auto 0.1 %; Lymphocytes Absolute Auto 2.37 K/uL (0.90-2.90); Mean Corpuscular HGB Conc 31 gm/dL (32-36); Mean Corpuscular Hemoglobin 28 pg (26-34); Mean Corpuscular Volume 89 fL (80-100); RDW Coefficient of Variation % 14.1 % (11.5-15.5); Red Blood Count* 5.09 m/uL (4.30-5.90); White Blood Count* 6.91 K/uL (4.50-11.00)
[2024-11-02 10:45] LABS: Slide Review Reflex No
[2024-11-02 10:50] LABS: Albumin* 4.1 g/dL (3.3-5.0); Chloride* 105 mmol/L (96-114); Potassium* 4.2 mmol/L (3.6-5.1); Sodium* 139 mmol/L (135-149)
[2024-11-02 10:53] LABS: Alanine Aminotransferase* 16 U/L (4-50); Alkaline Phosphatase* 131 U/L (40-150); Anion Gap 7 mEq/L (7-15); Aspartate Amino Transferase* 24 U/L (12-35); Bilirubin Total* 0.7 mg/dL (0.1-1.5); Blood Urea Nitrogen* 15 mg/dL (7-30); Calcium* 9.6 mg/dL (8.4-10.6); Carbon Dioxide* 27 mmol/L (20-32); Creatinine* 1.2 mg/dL (0.5-1.5); Est. Creatinine Clearance* 48.16; Estimated Glomerular Filt Rate 60 ml/min; Glucose* 109 mg/dL (60-115); Total Protein* 7.0 g/dL (6.0-8.3)
--- NOTE | 2024-11-03 09:55 | ONC.NURNOTE ---
Lab results reviewed by Dr Polk and called to patient- results discussed observation only for CLL next appts scheduled for 01/24/25 MD and lab patient denies any further questions or concerns at this time
== END 2024-11-14 23:59 | disposition home or self-care (01) ==
LOC: CCIC 11:00
PROVIDERS: PCP Family Medicine; Referring Provider Family Medicine; Visit Provider Internal Medicine Hematology & Oncology
DX: C91.10 Chronic lymphocytic leukemia of B-cell type not having achieved remission (principal); D50.9 Iron deficiency anemia, unspecified
CPT/HCPCS: 36415; 80053; 83615; 85025; 99213; 99214; G0463